=== PATIENT | male | born 1940 | race Caucasian/White ===

== ENCOUNTER 2016-06-18 21:59 | Inpatient (IN) | payer MEDICARE ==
[~2016-06-18] VITALS: Ht 172.7 cm; Wt 110.7 kg
[2016-06-18 22:25] VITALS: BP 116/53; PULSE 63; RESP 22; TEMP 98; O2SAT 99
[2016-06-18] MEDS ORDERED: IPRASOL INH (23:39)
[2016-06-18] MEDS ORDERED: NOVORP2 SQ (23:39)
[2016-06-18] MEDS ORDERED: FERR325T PO (23:39)
[2016-06-18] MEDS ORDERED: HYDR10TA23 PO (23:39)
[2016-06-18] MEDS ORDERED: BUME1TAB26 PO (23:39)
[2016-06-18] MEDS ORDERED: TAMS5CAP PO (23:39)
[2016-06-18] MEDS ORDERED: SPIR25 PO (23:39)
[2016-06-18] MEDS ORDERED: ASPI81CH CHEW (23:39)
[2016-06-18] MEDS ORDERED: ALLO100T PO (23:39)
[2016-06-18] MEDS ORDERED: MAGN500T2 PO (23:39)
[2016-06-18] MEDS ORDERED: ACET1CAP18 PO (23:39)
[2016-06-18] MEDS ORDERED: FLUT1INH INH (23:39)
[2016-06-18] MEDS ORDERED: GABA300C5 PO (23:39)
[2016-06-18] MEDS ORDERED: POTA10CA PO (23:39)
[2016-06-18] MEDS ORDERED: ATOR10TA15 PO (23:39)
[2016-06-18] MEDS ORDERED: BUME1TAB28 PO (23:39)
[2016-06-18] MEDS ORDERED: MULT1CHW70 (23:39)
[2016-06-18] MEDS ORDERED: MAALSUS18 PO (23:39)
[2016-06-18] MEDS ORDERED: ISOS30TA15 PO (23:39)
[2016-06-18] MEDS ORDERED: FISH1000 (23:39)
[2016-06-18] MEDS ORDERED: BENZ1CAP34 PO (23:39)
[2016-06-18] MEDS ORDERED: RENATAB5 PO (23:39)
[2016-06-18] MEDS ORDERED: MIRA33504 PO (23:39)
[2016-06-18] MEDS ORDERED: NOVOLOGMXP SQ (23:39)
[2016-06-18] MEDS ORDERED: TRAM50TA PO (23:39)
[2016-06-18] MEDS ORDERED: WARF-23 PO (23:39)
[2016-06-18] MEDS ORDERED: CYCL1TAB29 PO (23:39)
[2016-06-18] MEDS ORDERED: AMMO12LO TOPICAL (23:39)
[2016-06-18] MEDS ORDERED: CARV6.25 PO (23:39)
[2016-06-19] VITALS (16 sets, daily range): BP systolic 109–149; BP diastolic 51–71; PULSE 59–87; RESP 12–27; TEMP 97.4–98.6; O2SAT 98–100
[2016-06-19 00:29] LABS: AUTOMATED NEUTROPHIL # 4.5 TH/MM3 (1.8-7.7); BASOPHIL % 0.7 % (0.0-2.0); EOSINOPHIL # 0.1 TH/MM3 (0-0.4); EOSINOPHIL % 1.8 % (0.0-4.0); HEMO FLAGS DIFF FINAL; LYMPH % 13.3 % (9.0-44.0); LYMPHOCYTE # 0.8 TH/MM3 (1.0-4.8); MEAN CELL VOLUME 91.9 FL (80.0-100.0); MEAN CORPUSCULAR HEMOGLOBIN 29.2 PG (27.0-34.0); MEAN CORPUSCULAR HGB CONC 31.7 % (32.0-36.0); MONO % 11.2 % (0.0-8.0); PLATELET COUNT 156 TH/MM3 (150-450); RED BLOOD COUNT 3.04 MIL/MM3 (4.50-5.90); RED CELL DISTRIBUTION WIDTH 18.3 % (11.6-17.2); WHITE BLOOD COUNT 6.2 TH/MM3 (4.0-11.0)
--- NOTE | 2016-06-19 00:36 | RADRPT ---
EXAM DATE/TIME: 06/19/2016 00:07 [place] COMPARISON: No previous studies available for comparison. INDICATIONS : Pt having chest pain. Pt says has gained 60 pounds in past two weeks. MEDICAL HISTORY : Congestive heart failure. Diabetes mellitus type II. Gastroesophageal reflux disease. A-fib, Asth ma SURGICAL HISTORY : CABG. ENCOUNTER: Initial ACUITY: 1 day PAIN SCORE: 7/10 LOCATION: Bilateral chest FINDINGS: Cardiac pacer leads are in place. Evidence of prior median sternotomy. The heart is moderately enla rged. There is some indistinctness of the central bronchopulmonary markings. Both hemidiaphragms re main fairly well delineated. Multiple hemoclips in the right axilla. CONCLUSION: Cardiomegaly and indistinctness of the central bronchopulmonary markings. Rustam Hernández MD on June 19, 2016 at 0:33 Board Certified Radiologist. This report was verified electronically.
[2016-06-19 00:46] LABS: APTT (PATIENT) 40.9 SEC (24.3-30.1); INTERNATIONAL NORMALIZED RATIO 3.6 RATIO; PROTHROMBIN TIME - PATIENT 41.8 SEC (9.8-11.6)
[2016-06-19 01:24] LABS: BICARBONATE 33.9 MEQ/L (21.0-32.0)
[2016-06-19 01:34] LABS: POTASSIUM 5.6 MEQ/L (3.5-5.1)
[2016-06-19 03:03] LABS: APTT (PATIENT) 40.4 SEC (24.3-30.1); INTERNATIONAL NORMALIZED RATIO 3.5 RATIO; PROTHROMBIN TIME - PATIENT 41.3 SEC (9.8-11.6)
[2016-06-19 03:13] LABS: TOTAL BILIRUBIN ADULT 0.7 MG/DL (0.2-1.0)
[2016-06-19 03:15] LABS: INDIRECT BILIRUBIN 0.5 MG/DL (0.0-0.8)
--- NOTE | 2016-06-19 03:34 | PD ---
HPI Chief Complaint: Medical Clearance Time Seen by Provider: 01:52 Travel History International Travel<30 days: No Contact w/Intl Traveler<30days: No Traveled to known affect area: No History of Present Illness HPI This is a 75-year-old male The patient had an AICD placed several weeks ago at a hospital in [place]. He's gained about 70 pounds in the last few weeks since it 's placement. [place] was recently placed and he states that is painful. Any exertion tends to cause dyspnea. He's had no fever. He has no chest pain. History Social History Alcohol Use: No Tobacco Use: No Allergies-Medications (Allergen,Severity, Reaction): Coded Allergies: No Known Allergies (Unverified , 06/18/16) Reported Meds & Prescriptions Reported Meds & Active Scripts Active Reported Flomax (Tamsulosin HCl) 0.4 Mg Cap 0.4 Mg PO HS Tylenol (Acetaminophen) 325 Mg Cap 325 Mg PO Q6H PRN Warfarin 5 Mg Tab 5 Mg PO DAILY Tramadol (Tramadol HCl) 50 Mg Tab 50 Mg PO Q6H PRN Aldactone (Spironolactone) 25 Mg Tab 25 Mg PO DAILY Bumex (Bumetanide) 1 Mg Tab 1 Mg PO DAILY Bumex (Bumetanide) 2 Mg Tab 2 Mg PO DAILY Flexeril (Cyclobenzaprine HCl) 10 Mg Tab 10 Mg PO TID Gabapentin 300 Mg Cap 300 Mg PO BID Hydralazine (Hydralazine HCl) 10 Mg Tab 10 Mg PO BID Take with a meal Allopurinol 100 Mg Tab 100 Mg PO BID Novolin R Inj (Insulin Human Regular) 1,000 Unit/10 Ml Vial 0 SQ DIRECTED Sliding Scale As Directed. Benzonatate 200 Mg Cap 200 Mg PO TID PRN Duoneb (Ipratropium-Albuterol Neb) 0.5-2.5 Mg/3 Ml Neb 1 Nebule INH Q6HR NEB Coreg (Carvedilol) 6.25 Mg Tab 6.25 Mg PO BID Isosorbide Dinitrate 30 Mg Tab 40 Mg PO BID Novolog Mix 70-30 Inj (Insulin Aspart Prota 70%/Aspart 30%) 1,000 Unit/10 Ml Vial 25 Units SQ DAILYAC Marni-Mame (B-Complex W/ C & Folic Acid) 1 Tab 1 Tab PO DAILY Fish Oil ([place]-3 Fatty Acids) 1,000 Mg Cap Aspirin 81 Mg Chew 81 Mg CHEW DAILY Multivitamin Adult (Multiple Vitamins W/ Minerals) 1 Chw Chw Maalox Advanced Maximum Strength Liq (Unctkrvw-Sirdhaluq-Cmijbpqknqy Liq) 400- 400-40 Mg/5 Ml Susp 30 Ml PO Q6HR PRN Take between meals or as directed. Shake well. Maximum 60 ml/24 hrs. Miralax Powder (Polyethylene Glycol 3350 Powder) 17 Gm Powd 17 Gm PO HS Mix and dissolve one measuring cap-ful (17 grams) in water or juice. Magnesium Oxide 500 Mg Tab 500 Mg PO BID Ferrous Sulfate 325 Mg Tab 325 Mg PO DAILY Potassium Chloride ER (Potassium Chloride) 10 Meq Cap 10 Meq PO DAILY Atorvastatin (Atorvastatin Calcium) 10 Mg Tab 10 Mg PO HS Ammonium Lactate (Lactic Acid (Ammonium Lactate)) 12% Lotn 1 Applic TOPICAL ONCE Breo Ellipta Inh (Fluticasone/Vilanterol) 100-25 Mcg/Act Inh 1 Puff INH DAILY Use daily at the same time. Review of Systems Except as stated in HPI: all other systems reviewed are Neg Physical Exam Narrative GENERAL: 75 yo M, mild distress SKIN: Warm and dry. HEAD: Atraumatic. Normocephalic. EYES: Pupils equal and round. No scleral icterus. No injection or drainage. ENT: No nasal bleeding or discharge. Mucous membranes pink and moist. NECK: Trachea midline. No JVD. CARDIOVASCULAR: Regular rate and rhythm. RESPIRATORY: No accessory muscle use. Clear to auscultation. Breath sounds equal bilaterally. GASTROINTESTINAL: Abdomen soft, non-tender, nondistended. Hepatic and splenic margins not palpable. MUSCULOSKELETAL: 2+ pitting edema all four extremities. no gross deformities. NEUROLOGICAL: Awake and alert. No obvious cranial nerve deficits. Motor grossly within normal limits. Five out of 5 muscle strength in the arms and legs. Normal speech. PSYCHIATRIC: Appropriate mood and affect; insight and judgment normal. Data Data Last Documented VS Vital Signs Date Time Temp Pulse Resp B/P Pulse Ox O2 Delivery O2 Flow Rate FiO2 06/18/16 22:25 98.0 63 22 116/53 99 VS reviewed Orders Electrocardiogram (06/18/16 23:40) Complete Blood Count With Diff (06/18/16 23:40) Troponin I (06/18/16 23:40) Basic Metabolic Panel (Bmp) (06/18/16 23:40) Chest, Single Ap (06/18/16 23:40) Coag Profile (06/19/16 00:00) Urinalysis - C+S If Indicated (06/19/16 00:04) B-Type Natriuretic Peptide (06/19/16 02:09) Hepatic Functional Panel (06/19/16 02:09) Prothrombin Time / Inr (Pt) (06/19/16 02:22) Act Partial Throm Time (Ptt) (06/19/16 02:22) Calcium Gluconate Inj (Calcium Gluconate (06/19/16 03:45) Insulin Human Regular Inj (Novolin R Inj (06/19/16 03:45) Dextrose 50% In Nas (Vial) Inj (D50w (Vi (06/19/16 03:45) Sodium Bicarbonate 8.4% Inj (Sodium Bica (06/19/16 03:45) Admit Order (Ed Use Only) (06/19/16 03:50) Labs Laboratory Tests Test 06/19/16 06/19/16 00:02 02:35 White Blood Count 6.2 TH/MM3 Red Blood Count 3.04 MIL/MM3 Hemoglobin 8.9 GM/DL Hematocrit 28.0 % Mean Corpuscular Volume 91.9 FL Mean Corpuscular Hemoglobin 29.2 PG Mean Corpuscular Hemoglobin 31.7 % Concent Red Cell Distribution Width 18.3 % Platelet Count 156 TH/MM3 Mean Platelet Volume 8.9 FL Neutrophils (%) (Auto) 73.0 % Lymphocytes (%) (Auto) 13.3 % Monocytes (%) (Auto) 11.2 % Eosinophils (%) (Auto) 1.8 % Basophils (%) (Auto) 0.7 % Neutrophils # (Auto) 4.5 TH/MM3 Lymphocytes # (Auto) 0.8 TH/MM3 Monocytes # (Auto) 0.7 TH/MM3 Eosinophils # (Auto) 0.1 TH/MM3 Basophils # (Auto) 0.0 TH/MM3 CBC Comment DIFF FINAL Differential Comment Prothrombin Time 41.8 SEC 41.3 SEC Prothromb Time International 3.6 RATIO 3.5 RATIO Ratio Activated Partial 40.9 SEC 40.4 SEC Thromboplast Time Sodium Level 136 MEQ/L Potassium Level 5.6 MEQ/L Chloride Level 97 MEQ/L Carbon Dioxide Level 33.9 MEQ/L Anion Gap 5 MEQ/L Blood Urea Nitrogen 70 MG/DL Creatinine 1.97 MG/DL Estimat Glomerular Filtration 33 ML/MIN Rate Random Glucose 153 MG/DL Calcium Level 7.9 MG/DL Total Bilirubin 0.7 MG/DL Direct Bilirubin 0.2 MG/DL Indirect Bilirubin 0.5 MG/DL Aspartate Amino Transf 48 U/L (AST/SGOT) Alanine Aminotransferase 23 U/L (ALT/SGPT) Alkaline Phosphatase 174 U/L Troponin I 0.03 NG/ML B-Type Natriuretic Peptide 124 PG/ML Total Protein 6.7 GM/DL Albumin 2.8 GM/DL MDM Medical Decision Making Medical Screen Exam Complete: Yes Emergency Medical Condition: Yes Differential Diagnosis CBC & BMP Diagram 06/19/16 00:02 AST 48 BNP 124 Albumin 2.8 Tn I 0.03 EKG shows a paced rhythm Last 24 hours Impressions Chest X-Ray 06/18/16 2340 Signed Impressions: Service Date/Time: Sunday, June 19, 2016 00:07 - CONCLUSION: Cardiomegaly and indistinctness of the central bronchopulmonary markings. Rustam Hernández MD pt will be admitted for management of uremia with renal insufficiency. diffuse pitting edema noted. d/w Dr Castrejon. Narrative Course HyperK treated. No hyperK ekg change. Diagnosis Primary Impression: Hyperkalemia Additional Impressions: AICD (automatic cardioverter/defibrillator) present Renal insufficiency CHF (congestive heart failure) Admitting Information Admitting Physician Requests: Admit Rubens Gustafson MD Jun 19, 2016 03:34
[2016-06-19] MEDS ORDERED: CALCIUM GLUCONATE 10% 1 GM/10 ML VIAL SLOW IVP ONE (03:45)
[2016-06-19] MEDS ORDERED: DEXTROSE 50% IN WATER 50 ML VIAL(D50) IV PUSH ONE (03:45)
[2016-06-19] MEDS ORDERED: SODIUM BICARBONATE 8.4% SOLN 50 MEQ/50 ML VIAL SLOW IVP ONE (03:45)
[2016-06-19] MEDS ORDERED: INSULIN HUMAN REGULAR 1,000 UNITS/10 ML VIAL IV PUSH ONE (03:45)
[2016-06-19] MEDS ORDERED: ONDANSETRON HCL 4 MG/2 ML VIAL IVP PRN (04:15)
[2016-06-19] MEDS ORDERED: MORPHINE SULFATE 4 MG/ML INJ IV PRN (04:15)
[2016-06-19] MEDS ORDERED: SODIUM CHLORIDE 0.9% FLUSH 5 ML FLUSH FLUSH PRN (04:15)
[2016-06-19] MEDS ORDERED: BISACODYL 10 MG SUPP PR PRN (04:15)
[2016-06-19] MEDS ORDERED: ACETAMINOPHEN/HYDROcodone 325 MG/5 MG TAB PO PRN (04:15)
[2016-06-19] MEDS ORDERED: ACETAMINOPHEN 325 MG TAB PO PRN (04:15)
--- NOTE | 2016-06-19 05:02 | HHI.HP ---
[facility] Service [facility] Primary Care Physician No Primary Care Physician Admission Diagnosis Uremia, Anasarca, Renal Insufficiency Diagnoses: (1) CHF (congestive heart failure) Diagnosis: Principal (2) Hyperkalemia Diagnosis: Principal (3) Renal insufficiency Diagnosis: Principal (4) AICD (automatic cardioverter/defibrillator) present Diagnosis: Principal (5) A-fib Diagnosis: Principal Travel History International Travel<30 Days: No Contact w/Intl Traveler <30 Da: No Traveled to Known Affected Are: No History of Present Illness This is a 75 year old male with a PMH of HTN, CAD, CHF (unknown EF), Renal Insufficiency, A-fib on Coumadin and DM who was brought to the ER by EMS from [facility] for worsening edema. History provided by . Per , pt was recently admitted to [facility] and underwent AICD placement, following procedure pt developed renal insufficiency w/ creatinine 3.9. States seen by Lodging Facilities Manager at [place] and renal function improved w/ creatinine 2.6 at time of d/c to Rehab. While in Rehab, however, notes pt has gained approx 70 lbs w/ significant peripheral edema. No chest pain or SOB reported. On arrival, BP 116/53, HR 63, O2 sat 99% on RA, Afebrile. WBC 6.2. K+ 5.6. Creatinine 1.97, presumably chronic. BNP 124. Trop 0.03. CXR w/ cardiomegaly and indistinctness of the central bronchopulmonary markings. Review of Systems Other ROS: 14 point review of systems otherwise negative. Past Family Social History Past Medical History PMH: HTN, CAD, A-fib on Coumadin, CHF (unknown EF), Renal Insufficiency and DM Past Surgical History PAST SURGICAL HISTORY: AICD 2001, 2016, CABG Allergies: Coded Allergies: No Known Allergies (Unverified , 06/18/16) Family History PAST FAMILY HISTORY: Reviewed, positive for DM. Social History PAST SOCIAL HISTORY: Negative for alcohol, tobacco or drugs. Physical Exam Vital Signs Vital Signs Date Time Temp Pulse Resp B/P Pulse Ox O2 Delivery O2 Flow Rate FiO2 06/18/16 22:25 98.0 63 22 116/53 99 Physical Exam PE: GENERAL: Elderly, morbidly obese white male in no acute distress. Significant dyspnea with speech. at bedside. HEENT: PERRLA, EOMI. No scleral icterus or conjunctival pallor. No lid lag or facial droop. CARDIOVASCULAR: Regular rate and rhythm. No obvious murmurs to auscultation. No chest tenderness to palpation. RESPIRATORY: No obvious rhonchi or wheezing. Clear to auscultation. Breath sounds equal bilaterally, decreased at bases bilaterally. GASTROINTESTINAL: Abdomen soft, non-tender, nondistended. BS normal. MUSCULOSKELETAL: Extremities without clubbing, cyanosis. +2 pitting edema. No obvious deformities. NEUROLOGICAL: Awake, alert and oriented x4. No focal neurologic deficits. Moving both upper and lower extremities spontaneously. Laboratory Laboratory Tests Test 06/19/16 06/19/16 00:02 02:35 White Blood Count 6.2 Red Blood Count 3.04 Hemoglobin 8.9 Hematocrit 28.0 Mean Corpuscular Volume 91.9 Mean Corpuscular Hemoglobin 29.2 Mean Corpuscular Hemoglobin 31.7 Concent Red Cell Distribution Width 18.3 Platelet Count 156 Mean Platelet Volume 8.9 Neutrophils (%) (Auto) 73.0 Lymphocytes (%) (Auto) 13.3 Monocytes (%) (Auto) 11.2 Eosinophils (%) (Auto) 1.8 Basophils (%) (Auto) 0.7 Neutrophils # (Auto) 4.5 Lymphocytes # (Auto) 0.8 Monocytes # (Auto) 0.7 Eosinophils # (Auto) 0.1 Basophils # (Auto) 0.0 CBC Comment DIFF FINAL Differential Comment Prothrombin Time 41.8 41.3 Prothromb Time International 3.6 3.5 Ratio Activated Partial 40.9 40.4 Thromboplast Time Sodium Level 136 Potassium Level 5.6 Chloride Level 97 Carbon Dioxide Level 33.9 Anion Gap 5 Blood Urea Nitrogen 70 Creatinine 1.97 Estimat Glomerular Filtration 33 Rate Random Glucose 153 Calcium Level 7.9 Total Bilirubin 0.7 Direct Bilirubin 0.2 Indirect Bilirubin 0.5 Aspartate Amino Transf 48 (AST/SGOT) Alanine Aminotransferase 23 (ALT/SGPT) Alkaline Phosphatase 174 Troponin I 0.03 B-Type Natriuretic Peptide 124 Total Protein 6.7 Albumin 2.8 Result Diagram: 06/19/16 0002 06/19/16 0002 Assessment and Plan Problem List: (1) CHF (congestive heart failure) ICD Code: I50.9 Status: Acute (2) Hyperkalemia ICD Code: E87.5 Status: Acute (3) Renal insufficiency ICD Code: N28.9 Status: Acute (4) A-fib ICD Code: I48.91 Status: Acute (5) AICD (automatic cardioverter/defibrillator) present ICD Code: Z95.810 Status: Acute Assessment and Plan A/P: 1. CHF: EF unknown. Recent admit [facility] s/p AICD 05/17/16. BNP 124, CXR with cardiomegaly and indistinctness of central bronchopulmonary markings, images reviewed by me. On Bumex and Aldactone at home, will resume home medications, caution w/ renal function. Following w/ Dr. Colin as outpatient, will consult for further recommendations. 2. Hyperkalemia: K+ 5.6, s/p treatment in ER. Will repeat labs in am. 3. Renal Insufficiency: Chronic. Creatinine 1.97, per creatinine 3.9 during hospitalization in [place]. Upcoming appt w/ Dr. Burns 06/21/16. Consult Nephrology for further recommendations. 4. A-fib: Controlled. On Coumadin. INR 3.5. Hold Coumadin for INR >3 5. DVT Prophylaxis: On Coumadin 6. Social work for d/c planning as needed. 7. Case discussed w/ ER physician at length. Hyacinth Castrejon MD Jun 19, 2016 05:02
[2016-06-19] MEDS ORDERED: GLUCAGON 1 MG/ML VIAL OTHER PRN (05:15)
[2016-06-19] MEDS ORDERED: INSULIN ASPART SUPPLEMENTAL SCALE SQ SCH (07:00)
[2016-06-19 07:54] LABS: BLOOD GAS BASE EXCESS 9.9 mmol/L (-2-2); BLOOD GAS CARBOXYHEMOGLOBIN 2.9 % (0-4); BLOOD GAS HCO3 36 mmol/L (22-26); BLOOD GAS METHEMOGLOBIN 1.8 % (0-2); BLOOD GAS O2 HGB SATURATION 93 % (90-100); BLOOD GAS OXYGEN CONTENT 11.8 Vol % (12.0-20.0); BLOOD GAS PCO2 71 mmHg (38-42); BLOOD GAS PO2 91 mmHG (61-120); TEMP CORR TO 98.6
[2016-06-19 07:56] LABS: CRITICAL VALUE YES; DRAW SITE RT RADIAL; LITER FLOW 1 L/M; NUMBER OF ARTERIAL PUNCTURES 1; OXYGEN DEVICE NASAL CANNULA; STAT YES; ULNAR PULSE PRESENT
[2016-06-19] MEDS ORDERED: INSULIN ASPAR PROT 70/30 1,000 UNITS/10 ML VIAL SQ SCH (08:00)
[2016-06-19] MEDS: DEXTROSE 50% IN WATER 50 ML VIAL(D50) IV PUSH PRN ×2 (08:01→11:00)
[2016-06-19] MEDS: ASPIRIN 81 MG CHEW TAB CHEW SCH (08:57)
[2016-06-19] MEDS: FLUTICASONE 100 MCG/VILANTEROL 25 MCG INHALER INH SCH (08:57)
[2016-06-19] MEDS ORDERED: SPIRONOLACTONE 25 MG TAB PO SCH (09:00)
[2016-06-19] MEDS ORDERED: WARFARIN SOD 5 MG TAB PO SCH (09:00)
[2016-06-19] MEDS: SODIUM CHLORIDE 0.9% FLUSH 5 ML FLUSH FLUSH SCH ×2 (09:00→23:46)
[2016-06-19] MEDS ORDERED: BUMETANIDE INJ 1 MG/4 ML VIAL IV PUSH SCH (09:00)
[2016-06-19] MEDS ORDERED: CARVEDILOL 6.25 MG TAB PO SCH (09:00)
[2016-06-19] MEDS ORDERED: GABAPENTIN 300 MG CAP PO SCH (09:00)
[2016-06-19] MEDS ORDERED: BUMETANIDE 1 MG TAB PO SCH (09:00)
[2016-06-19] MEDS ORDERED: hydrALAZINE HCL 10 MG TAB PO SCH (09:00)
[2016-06-19] MEDS ORDERED: FERROUS SULFATE 325 MG (65 MG ELEMENTAL IRON) TAB PO SCH (09:00)
[2016-06-19] MEDS ORDERED: ALLOPURINOL 100 MG TAB PO SCH (09:00)
[2016-06-19] MEDS ORDERED: ISOSORBIDE DINITRATE 20 MG TAB PO SCH (09:00)
[2016-06-19] MEDS ORDERED: RESP: ALBUTEROL 0.63 MG/3 ML NEB (PRN) NEB (09:15)
[2016-06-19] MEDS: RESP: ALBUTEROL 2.5 MG/IPRATROPIUM 0.5 MG NEB (SCH) INH ×3 (09:25→21:32)
[2016-06-19 09:37] LABS: BLOOD GAS BASE EXCESS 9.4 mmol/L (-2-2); BLOOD GAS CARBOXYHEMOGLOBIN 2.8 % (0-4); BLOOD GAS HCO3 36 mmol/L (22-26); BLOOD GAS METHEMOGLOBIN 1.8 % (0-2); BLOOD GAS O2 HGB SATURATION 93 % (90-100); BLOOD GAS OXYGEN CONTENT 12.1 Vol % (12.0-20.0); BLOOD GAS PCO2 75 mmHg (38-42); BLOOD GAS PO2 99 mmHG (61-120); BLOOD GAS TOTAL HGB 9.2 G/DL (12.0-16.0); TEMP CORR TO 98.6
[2016-06-19 09:38] LABS: CRITICAL VALUE YES; DRAW SITE RT RADIAL; FIO2 28 %; NUMBER OF ARTERIAL PUNCTURES 1; OXYGEN DEVICE VENTILATOR; STAT NO; ULNAR PULSE PRESENT; VENT SETTINGS NPPV 12PS/5PEEP
--- NOTE | 2016-06-19 09:43 | HHI.PR ---
Subjective Remarks Follow-up encephalopathy. Patient developed abdominal status this morning. He is obtunded. ABG shows hypercarbia. Started on BiPAP with no improvement of mental status. Discussed with critical care medicine who will evaluate the patient. Also discussed with RN, automotive drivability technician and Objective Vitals Vital Signs Date Time Temp Pulse Resp B/P Pulse Ox O2 Delivery O2 Flow Rate FiO2 06/19/16 08:51 99 28 06/19/16 07:56 98.6 59 26 111/57 100 06/19/16 05:30 97.4 59 12 112/56 100 06/19/16 05:30 59 06/18/16 22:25 98.0 63 22 116/53 99 I/O 06/18/16 06/18/16 06/18/16 06/19/16 06/19/16 06/19/16 07:00 15:00 23:00 07:00 15:00 23:00 Output Total 550 ml Balance -550 ml Output Urine Total 550 ml Result Diagram: 06/19/16 0002 06/19/16 0002 Imaging Last Impressions Chest X-Ray 06/18/16 2340 Signed Impressions: Service Date/Time: Sunday, June 19, 2016 00:07 - CONCLUSION: Cardiomegaly and indistinctness of the central bronchopulmonary markings. Rustam Hernández MD Objective Remarks GENERAL: Elderly, morbidly obese white male on BiPAP HEENT: PERRLA, EOMI. No scleral icterus or conjunctival pallor. No lid lag or facial droop. CARDIOVASCULAR: Regular rate and rhythm. No obvious murmurs to auscultation. No chest tenderness to palpation. RESPIRATORY: No obvious rhonchi or wheezing. Clear to auscultation. Breath sounds equal bilaterally, decreased at bases bilaterally. GASTROINTESTINAL: Abdomen soft, non-tender, nondistended. BS normal. MUSCULOSKELETAL: Extremities without clubbing, cyanosis. +2 pitting edema. No obvious deformities. NEUROLOGICAL: Obtunded. Withdraws bilateral upper extremities from pain Procedures None A/P Problem List: (1) CHF (congestive heart failure) ICD Code: I50.9 Status: Acute (2) Hyperkalemia ICD Code: E87.5 Status: Acute (3) Renal insufficiency ICD Code: N28.9 Status: Acute (4) A-fib ICD Code: I48.91 Status: Acute (5) AICD (automatic cardioverter/defibrillator) present ICD Code: Z95.810 Status: Acute Assessment and Plan 1. Acute on chronic systolic HF: Recent admit [facility] s/p AICD 05/17/16. BNP 124, CXR with cardiomegaly and indistinctness of central bronchopulmonary markings, images reviewed by me. On Bumex and Aldactone at home, will resume home medications, caution w/ renal function. Following w/ Dr. Colin as outpatient, will consult for further recommendations. Switch to IV Bumex and monitor response 2. Encephalopathy secondary to acute hypercarbic respiratory failure from heart failure exacerbation. No improvement in mental status despite on BiPAP. Consult critical care medicine for possible intubation. Obtain head CT in light of coagulopathy . Repeat CBC, BMP, CK, troponin and INR 3. Renal Insufficiency: Chronic. Creatinine 1.97, per creatinine 3.9 during hospitalization in [place]. Upcoming appt w/ Dr. Burns 06/21/16. Consult Nephrology for further recommendations. Hyperkalemia: K+ 5.6, s/p treatment in ER. Will repeat labs today 4. A-fib: Controlled. On Coumadin. INR 3.5. Hold Coumadin for INR >3 5. Diabetes mellitus. Monitor will fingersticks with sliding scale coverage DVT Prophylaxis: On Coumadin Discharge Planning Patient is critically ill we'll transfer patient to ICU for close monitoring. High likelihood of intubation and mechanical ventilation. He is a full code according to his . Critical care time spent 35 minutes Derrick Moise MD Jun 19, 2016 09:43 Potassium Level 5.6 Chloride Level 97 Carbon Dioxide Level 33.9 Anion Gap 5 Blood Urea Nitrogen 70 Creatinine 1.97 Estimat Glomerular Filtration 33 Rate Random Glucose 153 Calcium Level 7.9 Total Bilirubin 0.7 Direct Bilirubin 0.2 Indirect Bilirubin 0.5 Aspartate Amino Transf 48 (AST/SGOT) Alanine Aminotransferase 23 (ALT/SGPT) Alkaline Phosphatase 174 Troponin I 0.03 B-Type Natriuretic Peptide 124 Total Protein 6.7 Albumin 2.8 Result Diagram: 06/19/16 0002 06/19/16 0002 Septic Shock Reassessment Septic Shock Reassessment Assessment and Plan Assessment and Plan Problem List: (1) CHF (congestive heart failure) ICD Code: I50.9 Status: Acute (2) Hyperkalemia ICD Code: E87.5 Status: Acute (3) Renal insufficiency ICD Code: N28.9 Status: Acute (4) A-fib ICD Code: I48.91 Status: Acute (5) AICD (automatic cardioverter/defibrillator) present ICD Code: Z95.810 Status: Acute Assessment and Plan A/P: 1. CHF: EF unknown. Recent admit [facility] s/p AICD 05/17/16. BNP 124, CXR with cardiomegaly and indistinctness of central bronchopulmonary markings, images reviewed by me. On Bumex and Aldactone at home, will resume home medications, caution w/ renal function. Following w/ Dr. Colin as outpatient, will consult for further recommendations. 2. Hyperkalemia: K+ 5.6, s/p treatment in ER. Will repeat labs in am. 3. Renal Insufficiency: Chronic. Creatinine 1.97, per creatinine 3.9 during hospitalization in [place]. Upcoming appt w/ Dr. Burns 06/21/16. Consult Nephrology for further recommendations. 4. A-fib: Controlled. On Coumadin. INR 3.5. Hold Coumadin for INR >3 5. DVT Prophylaxis: On Coumadin 6. Social work for d/c planning as needed. 7. Case discussed w/ ER physician at length. A/P Problem List: (1) CHF (congestive heart failure) ICD Code: I50.9 Status: Acute (2) Hyperkalemia ICD Code: E87.5 Status: Acute (3) Renal insufficiency ICD Code: N28.9 Status: Acute (4) A-fib ICD Code: I48.91 Status: Acute (5) AICD (automatic cardioverter/defibrillator) present ICD Code: Z95.810 Status: Acute Derrick Moise MD Jun 19, 2016 09:43
[2016-06-19 10:53] LABS: AUTOMATED NEUTROPHIL # 6.1 TH/MM3 (1.8-7.7); BASOPHIL % 0.4 % (0.0-2.0); EOSINOPHIL # 0.1 TH/MM3 (0-0.4); EOSINOPHIL % 0.8 % (0.0-4.0); HEMATOCRIT 29.2 % (39.0-51.0); HEMO FLAGS DIFF FINAL; LYMPH % 10.2 % (9.0-44.0); LYMPHOCYTE # 0.8 TH/MM3 (1.0-4.8); MEAN CELL VOLUME 90.7 FL (80.0-100.0); MEAN CORPUSCULAR HEMOGLOBIN 29.1 PG (27.0-34.0); MEAN CORPUSCULAR HGB CONC 32.1 % (32.0-36.0); MONO % 8.3 % (0.0-8.0); NEUT % 80.3 % (16.0-70.0); PLATELET COUNT 147 TH/MM3 (150-450); RED BLOOD COUNT 3.22 MIL/MM3 (4.50-5.90); RED CELL DISTRIBUTION WIDTH 17.9 % (11.6-17.2); WHITE BLOOD COUNT 7.6 TH/MM3 (4.0-11.0)
[2016-06-19 11:00] LABS: INTERNATIONAL NORMALIZED RATIO 3.1 RATIO; PROTHROMBIN TIME - PATIENT 35.9 SEC (9.8-11.6)
[2016-06-19] MEDS: INSULIN ASPART SUPPLEMENTAL SCALE SQ SCH ×3 (11:00→21:00)
[2016-06-19 11:23] LABS: BICARBONATE 35.7 MEQ/L (21.0-32.0); POTASSIUM 4.6 MEQ/L (3.5-5.1)
--- NOTE | 2016-06-19 11:27 | PD.CONS ---
[facility] Service Critical Care Medicine Consult Requested By Dr. Moise Reason for Consult hypercarbic respiratory failure Primary Care Physician No Primary Care Physician History of Present Illness This is a 75yM with a history of NYHA class III/IV heart failure, poorly controlled diabetes, obstructive sleep apnea who recently had an AICD placed at an outside facility. At that time, per his family, his "kidneys shut down" and he was hospitalized while they recovered. they reportedly started to recover and he was sent to a rehab center. His states that his kidney number was around 2.5 when he left at the end of may, presumably his serum creatinine. Since that time, his family states that despite diuretic therapy, he has gained 70 lbs. He has become so edematous that his arms and legs have seeping open sores. He has had a significant functional decline, and over the last few days has been progressively somnolent. Today he is brought in for for altered mental status. He was admitted initially to the hospitalist team with a CHF exacerbation, and placed on BiPAP for hypercarbic respiratory failure, and when it did not improve, Critical Care medicine was consulted. I had a long discussion with the family. Per them, his heart is restricted in its function, and maybe 30% (EF?). His diabetes was poorly controlled, and he was no longer wearing his CPAP machine for ROSE MARIE. He could barely walk 50 ft without significant dyspnea, and he was starting to have difficulty talking on the phone without getting dyspneic. Today, his laboratory data is significant for a Cr 1.9, a BNP of 124, trop 0.03 , AST/ALT 48/23, Alk phos 174, INR 3.1 on coumadin. Review of Systems ROS Limitations: Clinical Condition, Altered Mental Status Past Family Social History Allergies: Coded Allergies: No Known Allergies (Unverified , 06/18/16) Past Medical History HTN CAD A-fib on Coumadin CHF (unknown EF) Renal Insufficiency DM Past Surgical History AICD 2001, 2015 CABG Active Ordered Medications See MAR Family History reviewed and found to be noncontributory to his acute illness. Social History Negative for alcohol, tobacco or drugs. Physical Exam Vital Signs Vital Signs Date Time Temp Pulse Resp B/P Pulse Ox O2 Delivery O2 Flow Rate FiO2 06/19/16 10:39 61 14 149/70 100 CPAP 06/19/16 08:51 99 28 06/19/16 07:56 98.6 59 26 111/57 100 06/19/16 05:30 97.4 59 12 112/56 100 06/19/16 05:30 59 06/18/16 22:25 98.0 63 22 116/53 99 Physical Exam gen: morbidly obese male, lying in bed, somnolent, arousable to sternal rub, in moderate respiratory distress. heent: ncat. pupils equal and reactive. mucous membranes moist. neck: trachea midline. BiPAP mask in place. jvd unable to assess due to body habitus. chest: diminished bilaterally. equal air entry. no wheezes cv: normal rate, regular rhythm. appears sinus on the monitor. muffled heart sounds. no appreciable murmurs abd: obese, soft, nontender, nondistended. no guarding. extr: grossly anasarcic including all 4 extremities. small areas of bullae with clear fluid seeping. distal pulses 1+. neuro: RASS -3, but does arouse to deep sternal rub, and followed commands for me in all 4 extremities with some prompting. Laboratory Laboratory Tests Test 06/19/16 06/19/16 06/19/16 06/19/16 00:02 02:35 07:50 09:31 White Blood Count 6.2 Red Blood Count 3.04 Hemoglobin 8.9 Hematocrit 28.0 Mean Corpuscular Volume 91.9 Mean Corpuscular Hemoglobin 29.2 Mean Corpuscular Hemoglobin 31.7 Concent Red Cell Distribution Width 18.3 Platelet Count 156 Mean Platelet Volume 8.9 Neutrophils (%) (Auto) 73.0 Lymphocytes (%) (Auto) 13.3 Monocytes (%) (Auto) 11.2 Eosinophils (%) (Auto) 1.8 Basophils (%) (Auto) 0.7 Neutrophils # (Auto) 4.5 Lymphocytes # (Auto) 0.8 Monocytes # (Auto) 0.7 Eosinophils # (Auto) 0.1 Basophils # (Auto) 0.0 CBC Comment DIFF FINAL Differential Comment Prothrombin Time 41.8 41.3 Prothromb Time International 3.6 3.5 Ratio Activated Partial 40.9 40.4 Thromboplast Time Sodium Level 136 Potassium Level 5.6 Chloride Level 97 Carbon Dioxide Level 33.9 Anion Gap 5 Blood Urea Nitrogen 70 Creatinine 1.97 Estimat Glomerular Filtration 33 Rate Random Glucose 153 Calcium Level 7.9 Total Bilirubin 0.7 Direct Bilirubin 0.2 Indirect Bilirubin 0.5 Aspartate Amino Transf 48 (AST/SGOT) Alanine Aminotransferase 23 (ALT/SGPT) Alkaline Phosphatase 174 Troponin I 0.03 B-Type Natriuretic Peptide 124 Total Protein 6.7 Albumin 2.8 Blood Gas Puncture Site RT RADIAL RT RADIAL Blood Gas Patient Temperature 98.6 98.6 Blood Gas HCO3 36 36 Blood Gas Base Excess 9.9 9.4 Blood Gas Oxygen Saturation 93 93 Arterial Blood pH 7.33 7.30 Arterial Blood Partial 71 75 Pressure CO2 Arterial Blood Partial 91 99 Pressure O2 Arterial Blood Oxygen Content 11.8 12.1 Arterial Blood 2.9 2.8 Carboxyhemoglobin Arterial Blood Methemoglobin 1.8 1.8 Blood Gas Hemoglobin 9.0 9.2 Oxygen Delivery Device NASAL CANNULA VENTILATOR Blood Gas Liter Flow 1 Blood Gas Ventilator Setting NPPV 12PS/5PEEP Blood Gas Inspired Oxygen 28 Test 06/19/16 10:42 White Blood Count 7.6 Red Blood Count 3.22 Hemoglobin 9.4 Hematocrit 29.2 Mean Corpuscular Volume 90.7 Mean Corpuscular Hemoglobin 29.1 Mean Corpuscular Hemoglobin 32.1 Concent Red Cell Distribution Width 17.9 Platelet Count 147 Mean Platelet Volume 8.0 Neutrophils (%) (Auto) 80.3 Lymphocytes (%) (Auto) 10.2 Monocytes (%) (Auto) 8.3 Eosinophils (%) (Auto) 0.8 Basophils (%) (Auto) 0.4 Neutrophils # (Auto) 6.1 Lymphocytes # (Auto) 0.8 Monocytes # (Auto) 0.6 Eosinophils # (Auto) 0.1 Basophils # (Auto) 0.0 CBC Comment DIFF FINAL Differential Comment Prothrombin Time 35.9 Prothromb Time International 3.1 Ratio Result Diagram: 06/19/16 1042 06/19/16 0002 Assessment and Plan Assessment and Plan Assessment: This is a 75yM with history of cardiomyopathy, unknown type, and NYHA class III/IV symptoms who presents with a few weeks of weight gain and significant functional decline and now is found to have significant encephalopathy, hypercarbic respiratory failure, and gross volume overload. From a decompensated heart failure standpoint, he is clearly in extremis. a 70 lb weight gain over 1-2 weeks is extreme, and my evaluation of the patient would agree with this extreme volume overload. Even though his Cr is reportedly downtrending from what it was per the family, his urine is very dark , and his GFR is still significantly depressed. I think his elevated LFTs are suggestive of mild congestive hepatopathy and liver dysfunction. I think his encephalopathy is due to a combination of possible hepatic dysfunction and his severe hypercarbia and co2 narcosis. From a heart standpoint, I performed critical care bedside ultrasound which demonstrated moderately depressed LV systolic function, mildly depressed RV function, dilated RV, dilated IVC at 2.7cm without respiratory variation. no pericardial effusion. I am concerned that he may have a large diastolic component to his heart failure based on his clinical scenario. I also am very concerned that his multi-organ system dysfunction, which is has been going on for the past few days to weeks at this point, is going to significantly limit his ability to clinically improve. I had a long discussion with his entire family, including his and medical decision maker and a few of his children. We talked about the fact that this degree of organ failure makes him very critically ill. We also talked about how he meets criteria for intubation and mechanical ventilation as the next aggressive step in management. We talked about how intubation was high risk given his cardiac function, and with all his other organ dysfunction, there was a significant risk that he would not separate from mechanical ventilation. His felt very strongly that in their conversations, he would not have wanted a breathing tube for anything other than a "quick fix." I explained that this degree of volume overload would take at minimum a number of days to correct and may even require renal replacement therapy given his recent severe CELY. She expressed that he would not want a breathing tube, and would not want the stress of that. She understands that without the breathing tube, there is a good chance he might , and if that happens, she wants him comfortable. Thus, in congruence with his wishes as expressed by his , we will make the patient DNR/DNI. We will work aggressively towards improving his current clinical condition with the understanding that if we deteriorate clinically, we will transition to comfort measures. Plan by systems: Neurologic: Metabolic encephalopathy Likely secondary to hepatic dysfunction and CO2 narcosis Every hour neurochecks Avoid sedating medications Respiratory: Acute hypercarbic respiratory failure Acute respiratory failure exacerbation, unknown type. Suspected mixed systolic and diastolic. Continue BiPAP The patient is DNI. We will not pursue intubation We will give the patient a few more hours and then recheck blood gas Wean FiO2 for goal SPO2 greater than 90% Cardiovascular: Acute respiratory failure exacerbation, unknown type. Suspected mixed systolic and diastolic. Continue telemetry Renal: Acute kidney injury Continue Mendiola catheter -- Strict I/Os FEN/GI: Severe acute intravascular volume overload Congestive hepatopathy Bumex 4 mg IV 1 Bumex drip at 2 mg an hour Diuril 500 mg IV 1 Goal net -4 L by the morning If he does not diuresis as expected, we may need to change her goals comfort measures as I'm not sure his degree of heart failure at the moment the salvageable. Recheck BMP in the afternoon Nothing by mouth while on BiPAP A.m. LFTs AM BMP We will not give lactulose given the fact that the patient is too altered to control his airway, and I do not want vomiting and aspiration to worsen his condition. Check ammonia We will hold all of his by mouth meds in the setting of his significant altered mental status Heme/ID: Supratherapeutic INR Coagulopathy Likely secondary to renal dysfunction and hepatic dysfunction Daily CBC Daily coags holding Coumadin, will restart if INR is less than 1.7 Endocrine: Hyperglycemia of critical illness Diabetes -- SSI, medium scale, every 6 hours Prophylaxis: GI Prophylaxis Protonix 40 mg IV daily 24 hours DVT Prophylaxis -- SCDs Supratherapeutic INR. Holding pharmacologic DVT prophylaxis. Lines: Peripheral IVs Dispo: Admit to the ICU. His clinical condition is very guarded at this time. I expressed my concerns the family. He may not survive this hospital stay. This patient remains critically ill with one or more organ systems which are or may become a threat to life. I have spent in excess of 78 minutes discontinuously in the care and management of this patient. This time is exclusive of procedures, and includes, but is not limited to, evaluation of the patient, review of the medical record, discussions with family, consultants, nursing staff, or respiratory therapy, and documentation in the medical record. Code Status DNR/DNI Louis Newby MD Jun 19, 2016 11:27
[2016-06-19] MEDS ORDERED: CHLORHEXIDINE GLUCONATE 2 % 1 PACK (2 CLOTHS) TOP PRN (11:45)
[2016-06-19] MEDS ORDERED: MISCELLANEOUS NURSING INFORMATION XX SCH (11:45)
[2016-06-19] MEDS ORDERED: ONDANSETRON HCL 4 MG/2 ML VIAL IV PRN (11:45)
[2016-06-19] MEDS ORDERED: SODIUM CHLORIDE 0.9% FLUSH 5 ML FLUSH IV FLUSH PRN (11:45)
[2016-06-19] MEDS ORDERED: BUMETANIDE INJ 1 MG/4 ML VIAL IV PUSH ONE (12:15)
[2016-06-19] MEDS ORDERED: CHLOROTHIAZIDE SOD 500 MG VIAL IV ONE ×2 (12:30→18:15)
[2016-06-19] MEDS: BUMETANIDE INJ 100 ML IV SCH ×2 (12:41→20:10)
--- NOTE | 2016-06-19 14:12 | PD.CONS ---
[facility] Service Nephrology Consult Requested By Dr. Castrejon Reason for Consult Acute on Chronic renal insufficiency. Fluid overload Primary Care Physician No Primary Care Physician History of Present Illness The patient is a 75 yo [place] male who was brought into the ED today with SOB, fluid overload from [facility]. and 2 children are present in the exam room and history is obtained from his family as the patient is currently obtunded. He apparently was recently in [facility] (May 2016) for cardiac issues and had an exchange of his cardiac pacer to include 2 leads versus just one which he had since 2001. After the procedure, his says that he had kidney troubles and his "numbers went to 3.7". She refers that he was "placed on a drip and his number improved to 2.6". He was discharged from that facility and has been at [facility] for the past 2 weeks. Since his discharge from [facility], he has had progressive edema and reported a 70 lb weight gain in the past 2 weeks. He does take outpatient diuretics, but the dose is uncertain. He came in with a Mendiola placed and as per was making urine, but was very dark. Since admission, he was given loading dose of Bumex and started on Bumex 2mg/hr drip. He was also given a dose of Diuril. UOP has improved. The patient is in respiratory distress and the patient's has opted against intubation as she feels that ultimately, the patient would not want this. Admitting SCr 1.97 that improved slightly to 1.85 at consult. Admitting K+ 5.6 that improved to 4.6 as consult Alb at 2.8. (Karin Juarez) Review of Systems ROS Limitations: Clinical Condition Constitutional: COMPLAINS OF: Weight gain (ROS ontained from family members) Respiratory: COMPLAINS OF: Shortness of breath Cardiovascular: COMPLAINS OF: Dyspnea on Exertion, Lower Extremity Edema ( Karin Juarez) Past Family Social History Allergies: Coded Allergies: No Known Allergies (Unverified , 06/18/16) Past Medical History CAD CHF s/p AICD placement originally in 2001 that was revised in May 2016 at [facility] HTN DM CKD as reported by his only since May 2016 A. fib Past Surgical History AICD x2 CAGB Reported Medications Reported Meds & Active Scripts Active Reported Flomax (Tamsulosin HCl) 0.4 Mg Cap 0.4 Mg PO HS Tylenol (Acetaminophen) 325 Mg Cap 325 Mg PO Q6H PRN Warfarin 5 Mg Tab 5 Mg PO DAILY Tramadol (Tramadol HCl) 50 Mg Tab 50 Mg PO Q6H PRN Aldactone (Spironolactone) 25 Mg Tab 25 Mg PO DAILY Bumex (Bumetanide) 1 Mg Tab 1 Mg PO DAILY Bumex (Bumetanide) 2 Mg Tab 2 Mg PO DAILY Flexeril (Cyclobenzaprine HCl) 10 Mg Tab 10 Mg PO TID Gabapentin 300 Mg Cap 300 Mg PO BID Hydralazine (Hydralazine HCl) 10 Mg Tab 10 Mg PO BID Take with a meal Allopurinol 100 Mg Tab 100 Mg PO BID Novolin R Inj (Insulin Human Regular) 1,000 Unit/10 Ml Vial 0 SQ DIRECTED Sliding Scale As Directed. Benzonatate 200 Mg Cap 200 Mg PO TID PRN Duoneb (Ipratropium-Albuterol Neb) 0.5-2.5 Mg/3 Ml Neb 1 Nebule INH Q6HR NEB Coreg (Carvedilol) 6.25 Mg Tab 6.25 Mg PO BID Isosorbide Dinitrate 30 Mg Tab 40 Mg PO BID Novolog Mix 70-30 Inj (Insulin Aspart Prota 70%/Aspart 30%) 1,000 Unit/10 Ml Vial 25 Units SQ DAILYAC Marni-Mame (B-Complex W/ C & Folic Acid) 1 Tab 1 Tab PO DAILY Fish Oil ([place]-3 Fatty Acids) 1,000 Mg Cap Aspirin 81 Mg Chew 81 Mg CHEW DAILY Multivitamin Adult (Multiple Vitamins W/ Minerals) 1 Chw Chw Maalox Advanced Maximum Strength Liq (Ujdndgog-Mtkcsgsir-Cgsteotlpss Liq) 400- 400-40 Mg/5 Ml Susp 30 Ml PO Q6HR PRN Take between meals or as directed. Shake well. Maximum 60 ml/24 hrs. Miralax Powder (Polyethylene Glycol 3350 Powder) 17 Gm Powd 17 Gm PO HS Mix and dissolve one measuring cap-ful (17 grams) in water or juice. Magnesium Oxide 500 Mg Tab 500 Mg PO BID Ferrous Sulfate 325 Mg Tab 325 Mg PO DAILY Potassium Chloride ER (Potassium Chloride) 10 Meq Cap 10 Meq PO DAILY Atorvastatin (Atorvastatin Calcium) 10 Mg Tab 10 Mg PO HS Ammonium Lactate (Lactic Acid (Ammonium Lactate)) 12% Lotn 1 Applic TOPICAL ONCE Breo Ellipta Inh (Fluticasone/Vilanterol) 100-25 Mcg/Act Inh 1 Puff INH DAILY Use daily at the same time. Active Ordered Medications Current Medications Medications (Trade) Dose Ordered Sig/Les Route Start Time Stop Time Status Last Admin (NS Flush) 2 ml UNSCH PRN FLUSH 06/19/16 04:15 (NS Flush) 2 ml BID FLUSH 06/19/16 09:00 (Zofran Inj) 4 mg Q6H PRN IVP 06/19/16 04:15 (Tylenol) 650 mg Q6H PRN PO 06/19/16 04:15 Hold ([place] 5-325 Mg) 1 tab Q4H PRN PO 06/19/16 04:15 Hold (Zyloprim) 100 mg BID PO 06/19/16 09:00 Hold (Aspirin Chew) 81 mg DAILY CHEW 06/19/16 09:00 (Lipitor) 10 mg HS PO 06/19/16 21:00 (Coreg) 6.25 mg BID PO 06/19/16 09:00 Hold (Ferrous Sulfate) 325 mg DAILY PO 06/19/16 09:00 Hold (Breo Ellipta 100-25 Inh) 1 puff DAILY INH 06/19/16 09:00 (Apresoline) 10 mg BID PO 06/19/16 09:00 Hold (Aldactone) 25 mg DAILY PO 06/19/16 09:00 Hold (Flomax) 0.4 mg HS PO 06/19/16 21:00 (D50w (Vial) Inj) 25 ml UNSCH PRN IV PUSH 06/19/16 05:15 06/19/16 11:00 Glucagon 1 mg 1 mg UNSCH PRN OTHER 06/19/16 05:15 (Bumex Inj) 100 ml @ 8 mls/hr CONTINUOUS IV 06/19/16 13:00 06/19/16 12:41 (Protonix Inj) 40 mg DAILY IV 06/20/16 09:00 Miscellaneous Information 1 Q361D XX 06/19/16 11:45 (Chlorhexidine 2% Cloth) 3 pack Taper DAILY@04 TOP 06/20/16 04:00 06/16/17 03:59 (Chlorhexidine 2% Cloth) 3 pack UNSCH PRN TOP 06/19/16 11:45 Family History Family hx of DM. No known renal disease in family Social History Has been living at Rehab x2 weeks Is Denies smoking, EtOH, illicit drug use (Karin Juarez) Physical Exam Vital Signs Vital Signs Date Time Temp Pulse Resp B/P Pulse Ox O2 Delivery O2 Flow Rate FiO2 06/19/16 13:09 100 60 06/19/16 12:00 64 18 118/59 100 BiPAP 06/19/16 10:39 61 14 149/70 100 CPAP 06/19/16 08:51 99 28 06/19/16 07:56 98.6 59 26 111/57 100 06/19/16 05:30 97.4 59 12 112/56 100 06/19/16 05:30 59 06/18/16 22:25 98.0 63 22 116/53 99 Physical Exam GENERAL: On BiPAP, in moderate respiratory distress SKIN: Warm and dry. HEAD: Atraumatic. Normocephalic. Facial edema EYES: Pupils equal and round. No scleral icterus. No injection or drainage. ENT: No nasal bleeding or discharge. Mucous membranes pink and moist. NECK: Trachea midline. No JVD. CARDIOVASCULAR: Regular rate and rhythm. RESPIRATORY: Respiratory distress on BiPAP. Lungs are diminished throughout. No rales appreciated GASTROINTESTINAL: Abdomen distended with a considerable amount of edema present MUSCULOSKELETAL: Extremities without clubbing, cyanosis. Generalized anasarca NEUROLOGICAL: Obtunded PSYCHIATRIC: Obtunded. On BiPAP. Not able to communicate Laboratory Laboratory Tests Test 06/19/16 06/19/16 06/19/16 06/19/16 00:02 02:35 07:50 09:31 White Blood Count 6.2 Red Blood Count 3.04 Hemoglobin 8.9 Hematocrit 28.0 Mean Corpuscular Volume 91.9 Mean Corpuscular Hemoglobin 29.2 Mean Corpuscular Hemoglobin 31.7 Concent Red Cell Distribution Width 18.3 Platelet Count 156 Mean Platelet Volume 8.9 Neutrophils (%) (Auto) 73.0 Lymphocytes (%) (Auto) 13.3 Monocytes (%) (Auto) 11.2 Eosinophils (%) (Auto) 1.8 Basophils (%) (Auto) 0.7 Neutrophils # (Auto) 4.5 Lymphocytes # (Auto) 0.8 Monocytes # (Auto) 0.7 Eosinophils # (Auto) 0.1 Basophils # (Auto) 0.0 CBC Comment DIFF FINAL Differential Comment Prothrombin Time 41.8 41.3 Prothromb Time International 3.6 3.5 Ratio Activated Partial 40.9 40.4 Thromboplast Time Sodium Level 136 Potassium Level 5.6 Chloride Level 97 Carbon Dioxide Level 33.9 Anion Gap 5 Blood Urea Nitrogen 70 Creatinine 1.97 Estimat Glomerular Filtration 33 Rate Random Glucose 153 Calcium Level 7.9 Total Bilirubin 0.7 Direct Bilirubin 0.2 Indirect Bilirubin 0.5 Aspartate Amino Transf 48 (AST/SGOT) Alanine Aminotransferase 23 (ALT/SGPT) Alkaline Phosphatase 174 Troponin I 0.03 B-Type Natriuretic Peptide 124 Total Protein 6.7 Albumin 2.8 Blood Gas Puncture Site RT RADIAL RT RADIAL Blood Gas Patient Temperature 98.6 98.6 Blood Gas HCO3 36 36 Blood Gas Base Excess 9.9 9.4 Blood Gas Oxygen Saturation 93 93 Arterial Blood pH 7.33 7.30 Arterial Blood Partial 71 75 Pressure CO2 Arterial Blood Partial 91 99 Pressure O2 Arterial Blood Oxygen Content 11.8 12.1 Arterial Blood 2.9 2.8 Carboxyhemoglobin Arterial Blood Methemoglobin 1.8 1.8 Blood Gas Hemoglobin 9.0 9.2 Oxygen Delivery Device NASAL CANNULA VENTILATOR Blood Gas Liter Flow 1 Blood Gas Ventilator Setting NPPV 12PS/5PEEP Blood Gas Inspired Oxygen 28 Test 06/19/16 10:42 White Blood Count 7.6 Red Blood Count 3.22 Hemoglobin 9.4 Hematocrit 29.2 Mean Corpuscular Volume 90.7 Mean Corpuscular Hemoglobin 29.1 Mean Corpuscular Hemoglobin 32.1 Concent Red Cell Distribution Width 17.9 Platelet Count 147 Mean Platelet Volume 8.0 Neutrophils (%) (Auto) 80.3 Lymphocytes (%) (Auto) 10.2 Monocytes (%) (Auto) 8.3 Eosinophils (%) (Auto) 0.8 Basophils (%) (Auto) 0.4 Neutrophils # (Auto) 6.1 Lymphocytes # (Auto) 0.8 Monocytes # (Auto) 0.6 Eosinophils # (Auto) 0.1 Basophils # (Auto) 0.0 CBC Comment DIFF FINAL Differential Comment Prothrombin Time 35.9 Prothromb Time International 3.1 Ratio Sodium Level 140 Potassium Level 4.6 Chloride Level 100 Carbon Dioxide Level 35.7 Anion Gap 4 Blood Urea Nitrogen 72 Creatinine 1.85 Estimat Glomerular Filtration 36 Rate Random Glucose 58 Calcium Level 8.6 Magnesium Level 3.0 Total Creatine Kinase 82 Troponin I 0.03 (Karin Juarez) Result Diagram: 06/19/16 1042 06/19/16 1042 Imaging Last Impressions Chest X-Ray 06/18/16 2340 Signed Impressions: Service Date/Time: Sunday, June 19, 2016 00:07 - CONCLUSION: Cardiomegaly and indistinctness of the central bronchopulmonary markings. Rustam Hernández MD (Karin Juarez) Assessment and Plan Problem List: (1) Renal insufficiency Plan: The patient's baseline renal functions are not known. According to ' s recollection, his SCr has improved from what he was in [place]. Records are pending. He was supposed to have establishment visit with Dr. Burns as outpatient coming up this month. Acute renal decline could be related to cardiac decompensation. Uncertain as to his EF as echo pending, but he is massively fluid overloaded. Agree with aggressive diuresis. He does seem to be responding as urine output has picked up. Will repeat renal functions for the AM. Check UA and renal US Will also check SPEP, RAYSHAWN, and K/L ratio for sake of being thorough. His Hgb is low, but this is likely dilutional more-so that true anemia. (2) CHF (congestive heart failure) Plan: Pending Echo report. Diurese as ordered (3) Diabetes mellitus Plan: Mgmt as per primary (4) Hypertension Plan: Stable. Monitor (5) CAD (coronary artery disease) Plan: Mgmt as per cardiology (Karin Juarez) Assessment and Plan The exam, history, and the medical decision-making described in the above note were completed with the assistance of the PA-Tabitha. I reviewed and agree with the findings presented. I attest that I had a [id number] encounter with the patient on the same day, and personally performed and documented my assessment and findings in the medical record. (Evangelista Aguirre MD) Karin Juarez Jun 19, 2016 14:12 Evangelista gAuirre MD Jun 19, 2016 17:02
--- NOTE | 2016-06-19 14:37 | EKG ---
Date Performed: 06/19/2016 Time Performed: 00:46:19 PTAGE: 75 years EKG: ELECTRONIC VENTRICULAR PACEMAKER ABNORMAL RHYTHM ECG NO PREVIOUS TRACING DOCTOR: Rohit Gustafson Interpretating Date/Time 06/19/2016 14:35:08
[2016-06-19 15:42] LABS: BLOOD GAS BASE EXCESS 9.6 mmol/L (-2-2); BLOOD GAS CARBOXYHEMOGLOBIN 2.8 % (0-4); BLOOD GAS HCO3 35 mmol/L (22-26); BLOOD GAS METHEMOGLOBIN 1.5 % (0-2); BLOOD GAS O2 HGB SATURATION 96 % (90-100); BLOOD GAS OXYGEN CONTENT 12.9 Vol % (12.0-20.0); BLOOD GAS PCO2 66 mmHg (38-42); BLOOD GAS PO2 235 mmHG (61-120); BLOOD GAS TOTAL HGB 9.1 G/DL (12.0-16.0); TEMP CORR TO 98.6
[2016-06-19 15:43] LABS: CRITICAL VALUE YES; DRAW SITE RT RADIAL; FIO2 60 %; NUMBER OF ARTERIAL PUNCTURES 2; OXYGEN DEVICE VENTILATOR; STAT NO; ULNAR PULSE PRESENT; VENT SETTINGS NPPV 16/12PS/5PEEP
--- NOTE | 2016-06-19 18:02 | RADRPT ---
EXAM DATE/TIME: 06/19/2016 17:15 [facility] COMPARISON: No previous studies available for comparison. INDICATIONS : Increased BUN/creatinine. MEDICAL HISTORY : Congestive heart failure. Hypercholesterolemia. Chronic obstructive pulmonary disease. CAD. Afib. Ast hma. Dyspnea. Ulcer. GERD. Renal failure. Diabetes. SURGICAL HISTORY : CABG. Cardiac cath. AICD. ENCOUNTER: Initial ACUITY: 1 day PAIN SCORE: Nonresponsive. LOCATION: Bilateral flank MEASUREMENTS: RIGHT KIDNEY: 10.6 x5.4 x 5.4 cm LEFT KIDNEY: 11.6 x 4.3 x 5.8 cm FINDINGS: Bilateral kidneys reveal normal size and configuration. There may be increased echogenicity of the co rtex suggesting renal parenchymal disease with no evidence of hydronephrosis and a possible 2.[address] lower pole left kidney. Mendiola catheter is in place in the bladder which is decompressed. CONCLUSION: No evidence of obstructive uropathy, hydronephrosis. Increased echogenicity of the renal cortex sugge sting parenchymal disease. Mendiola catheter in place in the urinary bladder Arsalan Juares MD on June 19, 2016 at 17:59 Board Certified Radiologist. This report was verified electronically.
[2016-06-19 19:52] LABS: BICARBONATE 37.5 MEQ/L (21.0-32.0); MAGNESIUM 2.9 MG/DL (1.5-2.5); POTASSIUM 4.8 MEQ/L (3.5-5.1); TOTAL PROTEIN SPE 6.7 GM/DL (6.0-7.6)
[2016-06-19] MEDS: ATORVASTATIN 10 MG TAB PO SCH (21:00)
[2016-06-19] MEDS: TAMSULOSIN HCL 0.4 MG CAP PO SCH (21:00)
[2016-06-19] MEDS ORDERED: SODIUM CHLORIDE 0.9% FLUSH 5 ML FLUSH IV FLUSH SCH (21:00)
[2016-06-19 21:05] LABS: KAPPA LAMBDA RATIO 2.17 (1.57-3.93)
[2016-06-19 21:39] LABS: BACTERIA, URINE RARE /hpf; BLOOD, URINE MOD (NEG); COMMENT (UR) CULTURE INDICATED; CULTURE IF INDICATED CULTURE INDICATED; GLUCOSE,URINE NEG (NEG); HYALINE CAST, URINE 1 /lpf (RARE); KETONE, URINE NEG (NEG); NITRITE,URINE NEG (NEG); PH, URINE 7.5 (5.0-8.5); URINE COLOR LIGHT-YELLOW (YELLW/STRAW)
--- NOTE | 2016-06-19 21:51 | MB ---
cc: NEDRA BORREGO MD DATE OF CONSULTATION 06/19/16 REASON FOR CONSULTATION Biventricular failure HISTORY OF PRESENT ILLNESS This 75-year-old white male was transferred to the emergency room today with shortness of breath and marked fluid overload from the rehabilitation. In May 2016 the patient was admitted to [facility] for cardiac issue and had upgrade of his pacemaker to a biventricular ICD. It complicated by renal failure and creatinine was as high as 3.7 according to the . He was transferred to rehab the last two weeks and has been progressively getting more swollen and gained 70 pounds in two weeks. He is known to have sleep apnea and ejection fraction on the report was questionably under 30%. He is a diabetic who could barely walk short distance. EKG showed biventricular pacing. The family is not at the bedside and most of the history obtained through the chart and patient is not that communicative with the C-PAP machine on his face. Apparently, the family and the patient do not want intubation. He has been followed by Dr. Garcia. ALLERGIES Unknown PAST MEDICAL HISTORY 1. coronary artery disease upgrade of a biventricular ICD two weeks ago in [place]. 2. Chronic renal failure, 3. Hypertension, 4. Diabetes, 5. Chronic atrial fibrillation 6. Bypass surgery in the past. MEDICATIONS At home, 1. Flomax. 2. Tylenol. 3. Coumadin 4. Tramadol 5. Aldactone 6. Bumex 7. Flexeril 8. Neurontin 9. Hydralazine 10. Allopurinol 11. Insulin 12. Duoneb 13. Coreg 14. ___ 15. Imdur 16. Fish oil 17. Baby aspirin. 18. Lipitor. FAMILY HISTORY Positive for diabetes SOCIAL HISTORY and retired. PHYSICAL EXAMINATION VITAL SIGNS: On day of consultation blood pressure is 116/53, pulse is 63 per minute, afebrile. NECK: Showed normal oral exam. Neck is supple. CHEST: Exam showed decreased air entry on BIPAP CARDIOVASCULAR: Showed swollen neck. S1-S2 decreased. No gross murmur. ABDOMEN: Examination revealed obese abdomen, possible ascites. INTERNET MARKETING ANALYST: Patient is arousable, moving four limbs slowly MUSCULOSKELETAL: Marked swelling of the whole body including four limbs and the face. IMPRESSION 1. Most likely biventricular failure, right side more than the left. 2. Renal failure. 3. Obstructive sleep apnea 4. History of hypertension and hyperlipidemia and type 2 diabetes 5. Chronic atrial fibrillation on Coumadin 6. Biventricular ICD recently two weeks ago in [place]. SUGGESTIONS Agree with aggressive diureses. Most of the failure right-sided. Echocardiogram has been ordered. I wonder about tricuspid insufficiency. His prognosis is guarded. Dr. Garcia will take over on Tuesday. Agree with renal consult MD GAMAL Damon/ /6:41 PM /9:24 PM MTDD
[2016-06-19] MEDS ORDERED: DEXTROSE 10% INJ 1,000 ML IV SCH (22:00)
[2016-06-20] VITALS (17 sets, daily range): BP systolic 106–134; BP diastolic 46–60; PULSE 59; RESP 15–27; TEMP 97.9–98.2; O2SAT 95–100
[2016-06-20] MEDS: CHLORHEXIDINE GLUCONATE 2 % 1 PACK (2 CLOTHS) TOP SCH (03:43)
[2016-06-20] MEDS: RESP: ALBUTEROL 2.5 MG/IPRATROPIUM 0.5 MG NEB (SCH) INH ×4 (04:10→20:43)
--- NOTE | 2016-06-20 05:24 | RADRPT ---
EXAM DATE/TIME: 06/20/2016 03:24 [place] COMPARISON: CHEST SINGLE AP, June 19, 2016, 0:07. INDICATIONS : Shortness of breath, possible pulmonary disease. MEDICAL HISTORY : Congestive heart failure. Diabetes mellitus type II. Gastroesophageal reflux disease. A-Fib Asthm a SURGICAL HISTORY : CABG. ENCOUNTER: Subsequent ACUITY: 2 days PAIN SCORE: 6/10 LOCATION: Bilateral chest FINDINGS: Interval development of partial consolidation in the left lower lung with loss of delineation of port ions of left hemidiaphragm. Indistinctness and prominence of the central bronchopulmonary markings a nd cardiomegaly is similar to prior. Evidence of prior median sternotomy. Cardiac pacer in place. Hemoclips in the right axilla. CONCLUSION: Interval developmental of patchy consolidation left lower lung. Rustam Hernández MD on June 20, 2016 at 5:21 Board Certified Radiologist. This report was verified electronically.
[2016-06-20] MEDS: INSULIN ASPART SUPPLEMENTAL SCALE SQ SCH ×4 (07:00→21:00)
[2016-06-20 07:13] LABS: BLOOD GAS BASE EXCESS 11.2 mmol/L (-2-2); BLOOD GAS CARBOXYHEMOGLOBIN 2.4 % (0-4); BLOOD GAS HCO3 37 mmol/L (22-26); BLOOD GAS METHEMOGLOBIN 0.9 % (0-2); BLOOD GAS O2 HGB SATURATION 96 % (90-100); BLOOD GAS OXYGEN CONTENT 13.3 Vol % (12.0-20.0); BLOOD GAS PCO2 67 mmHg (38-42); BLOOD GAS PO2 130 mmHg (61-120); BLOOD GAS TOTAL HGB 9.7 G/DL (12.0-16.0); CRITICAL VALUE YES; DRAW SITE RT RADIAL; FIO2 45 %; NUMBER OF ARTERIAL PUNCTURES 1; OXYGEN DEVICE VENTILATOR; TEMP CORR TO 98.6; VENT SETTINGS NPPV/SIMV
[2016-06-20 07:14] LABS: STAT NO; ULNAR PULSE PRESENT
[2016-06-20 07:16] LABS: HEMATOCRIT 28.3 % (39.0-51.0); MEAN CELL VOLUME 92.8 FL (80.0-100.0); MEAN CORPUSCULAR HEMOGLOBIN 29.3 PG (27.0-34.0); MEAN CORPUSCULAR HGB CONC 31.6 % (32.0-36.0); PLATELET COUNT 153 TH/MM3 (150-450); RED BLOOD COUNT 3.05 MIL/MM3 (4.50-5.90); RED CELL DISTRIBUTION WIDTH 18.1 % (11.6-17.2); REVIEW FLAG FINAL; WHITE BLOOD COUNT 6.4 TH/MM3 (4.0-11.0)
[2016-06-20 07:22] LABS: INTERNATIONAL NORMALIZED RATIO 2.9 RATIO; PROTHROMBIN TIME - PATIENT 33.1 SEC (9.8-11.6)
[2016-06-20 07:43] LABS: BICARBONATE 37.6 MEQ/L (21.0-32.0); INDIRECT BILIRUBIN 0.6 MG/DL (0.0-0.8); POTASSIUM 4.1 MEQ/L (3.5-5.1)
[2016-06-20 08:05] LABS: AUTOMATED NEUTROPHIL # 4.9 TH/MM3 (1.8-7.7); BASOPHIL # 0.1 TH/MM3 (0-0.2); BASOPHIL % 0.9 % (0.0-2.0); EOSINOPHIL # 0.1 TH/MM3 (0-0.4); EOSINOPHIL % 0.8 % (0.0-4.0); HEMATOCRIT 28.2 % (39.0-51.0); HEMO FLAGS DIFF FINAL; LYMPH % 11.4 % (9.0-44.0); LYMPHOCYTE # 0.7 TH/MM3 (1.0-4.8); MEAN CELL VOLUME 91.7 FL (80.0-100.0); MEAN CORPUSCULAR HEMOGLOBIN 28.8 PG (27.0-34.0); MEAN CORPUSCULAR HGB CONC 31.4 % (32.0-36.0); MONO % 10.3 % (0.0-8.0); NEUT % 76.6 % (16.0-70.0); PLATELET COUNT 157 TH/MM3 (150-450); RED BLOOD COUNT 3.07 MIL/MM3 (4.50-5.90); WHITE BLOOD COUNT 6.4 TH/MM3 (4.0-11.0)
[2016-06-20 08:19] LABS: BICARBONATE 40.2 MEQ/L (21.0-32.0); POTASSIUM 3.9 MEQ/L (3.5-5.1)
[2016-06-20] MEDS: FLUTICASONE 100 MCG/VILANTEROL 25 MCG INHALER INH SCH (09:00)
[2016-06-20] MEDS: ASPIRIN 81 MG CHEW TAB CHEW SCH (09:22)
[2016-06-20] MEDS: PANTOPRAZOLE SODIUM 40 MG VIAL IV SCH (09:22)
[2016-06-20] MEDS: CHLOROTHIAZIDE SOD 500 MG VIAL IV SCH ×2 (09:22→23:41)
[2016-06-20] MEDS: SODIUM CHLORIDE 0.9% FLUSH 5 ML FLUSH FLUSH SCH ×2 (09:22→23:20)
--- NOTE | 2016-06-20 11:40 | HHI.NPPN ---
Subjective History of Present Illness The patient is a 75 yo [place] male who was brought into the ED today with SOB, fluid overload from [facility]. and 2 children are present in the exam room and history is obtained from his family as the patient is currently obtunded. He apparently was recently in [facility] (May 2016) for cardiac issues and had an exchange of his cardiac pacer to include 2 leads versus just one which he had since 2001. After the procedure, his says that he had kidney troubles and his "numbers went to 3.7". She refers that he was "placed on a drip and his number improved to 2.6". He was discharged from that facility and has been at [facility] for the past 2 weeks. Since his discharge from [facility], he has had progressive edema and reported a 70 lb weight gain in the past 2 weeks. He does take outpatient diuretics, but the dose is uncertain. He came in with a Mendiola placed and as per was making urine, but was very dark. Since admission, he was given loading dose of Bumex and started on Bumex 2mg/hr drip. He was also given a dose of Diuril. UOP has improved. The patient is in respiratory distress and the patient's has opted against intubation as she feels that ultimately, the patient would not want this. Admitting SCr 1.97 that improved slightly to 1.85 at consult. Admitting K+ 5.6 that improved to 4.6 as consult Alb at 2.8. Interval History The patient is doing much better today. On BiPAP primarily, but did tolerate 4L per NC for a while today. Responding well to diuretics. (Karin Juarez) Objective Data Data 06/19/16 06/20/16 19:00 07:00 Intake Total 637 ml Output Total 1200 ml 4495 ml Balance -1200 ml -3858 ml Intake IV Total 637 ml Output Urine Total 1200 ml 4495 ml # Voids 0 # Bowel Movements 0 Vital Signs Date Time Temp Pulse Resp B/P Pulse Ox O2 Delivery O2 Flow Rate FiO2 06/20/16 09:30 97 Nasal Cannula 4.00 06/20/16 08:00 100 Bi-Pap 45 06/20/16 08:00 97.9 59 22 118/60 99 116/54 06/20/16 08:00 45 06/20/16 07:39 99 45 06/20/16 07:00 59 06/20/16 03:56 100 45 06/20/16 03:10 98.2 59 27 106/48 99 06/20/16 03:10 45 06/20/16 03:10 100 Bi-Pap 45 06/20/16 03:10 59 06/20/16 00:50 99 45 06/19/16 23:44 99 Bi-Pap 50 06/19/16 23:42 50 06/19/16 23:34 98.1 59 27 110/51 99 06/19/16 23:34 59 06/19/16 20:24 100 50 06/19/16 19:30 100 Bi-Pap 60 06/19/16 19:30 60 06/19/16 19:20 97.7 61 20 127/63 100 06/19/16 19:00 61 06/19/16 18:51 62 06/19/16 18:47 97.7 62 16 131/71 100 06/19/16 18:15 99 60 06/19/16 18:00 84 18 131/61 98 BiPAP 06/19/16 16:00 87 18 109/53 100 BiPAP 06/19/16 14:00 87 18 141/62 100 BiPAP 06/19/16 13:09 100 60 06/19/16 12:00 64 18 118/59 100 BiPAP (Karin Juarez) -: 06/20/16 0727 06/20/16 0727 Microbiology 06/19/16 Urine Culture, Received Pending Imaging Last Impressions Chest X-Ray 06/20/16 0600 Signed Impressions: Service Date/Time: Monday, June 20, 2016 03:24 - CONCLUSION: Interval developmental of patchy consolidation left lower lung. Rustam Hernández MD Renal Ultrasound 06/19/16 0000 Signed Impressions: Service Date/Time: Sunday, June 19, 2016 17:15 - CONCLUSION: No evidence of obstructive uropathy, hydronephrosis. Increased echogenicity of the renal cortex suggesting parenchymal disease. Mendiola catheter in place in the urinary bladder Arsalan Juares MD Medication Review Current Medications Medications (Trade) Dose Ordered Sig/Les Route Start Time Stop Time Status Last Admin (NS Flush) 2 ml UNSCH PRN FLUSH 06/19/16 04:15 (NS Flush) 2 ml BID FLUSH 06/19/16 09:00 06/20/16 09:22 (Zofran Inj) 4 mg Q6H PRN IVP 06/19/16 04:15 (Tylenol) 650 mg Q6H PRN PO 06/19/16 04:15 Hold ([place] 5-325 Mg) 1 tab Q4H PRN PO 06/19/16 04:15 Hold (Zyloprim) 100 mg BID PO 06/19/16 09:00 Hold (Aspirin Chew) 81 mg DAILY CHEW 06/19/16 09:00 06/20/16 09:22 (Lipitor) 10 mg HS PO 06/19/16 21:00 (Coreg) 6.25 mg BID PO 06/19/16 09:00 Hold (Ferrous Sulfate) 325 mg DAILY PO 06/19/16 09:00 Hold (Breo Ellipta 100-25 Inh) 1 puff DAILY INH 06/19/16 09:00 (Apresoline) 10 mg BID PO 06/19/16 09:00 Hold (Aldactone) 25 mg DAILY PO 06/19/16 09:00 Hold (Flomax) 0.4 mg HS PO 06/19/16 21:00 (D50w (Vial) Inj) 25 ml UNSCH PRN IV PUSH 06/19/16 05:15 06/19/16 11:00 Glucagon 1 mg 1 mg UNSCH PRN OTHER 06/19/16 05:15 (Bumex Inj) 100 ml @ 8 mls/hr CONTINUOUS IV 06/19/16 13:00 06/19/16 20:10 (Protonix Inj) 40 mg DAILY IV 06/20/16 09:00 06/20/16 09:22 Miscellaneous Information 1 Q361D XX 06/19/16 11:45 06/19/16 11:45 (Chlorhexidine 2% Cloth) 3 pack Taper DAILY@04 TOP 06/20/16 04:00 06/16/17 03:59 06/20/16 03:43 Chlorhexidine Gluconate 3 pack 3 pack UNSCH PRN TOP 06/19/16 11:45 (Dextrose 10% In Water Inj) 1,000 ml @ 20 mls/hr Q24H IV 06/19/16 22:00 06/19/16 22:20 (Diamox Inj) 500 mg Q8H IV PUSH 06/20/16 06:45 06/20/16 08:02 (Diuril Inj) 500 mg Q12HR IV 06/20/16 09:00 06/20/16 09:22 (Karin Juarez) Physical Exam General Appearance: Comfortable (Karin Juarez) Neck Neck Exam: Neck Supple, Trachea Midline (Karin Juarez) Pulmonary Resp Exam: Clear Bilaterally, Breath Sounds Equal (Karin Juarez) Cardiology CV Exam: Regular, Normal Sinus Rhythm (Karin Juarez) Integumentary Skin Exam: Warm (Karin Juarez) Extremeties Extremities Exam: Pitting Edema Extremeties Remarks Considerable, generalized edema--slightly improved from before (Karin Juarez) Assessment/Plan Problem List: (1) Renal insufficiency Plan: The patient's baseline renal functions are not known. According to ' s recollection, his SCr has improved from what he was in [place]. Records are pending. He was supposed to have establishment visit with Dr. Burns as outpatient coming up this month. Acute renal decline likely related to cardiac decompensation. Continue with diuresis. Consideration to decrease Bumex to 1mg/hr if agreeable by critical care. Otherwise, we will continue to monitor closely. (2) CHF (congestive heart failure) Plan: Pending Echo report. Diurese as ordered (3) Diabetes mellitus Plan: Mgmt as per primary (4) Hypertension Plan: Stable. Monitor (5) CAD (coronary artery disease) Plan: Mgmt as per cardiology (Karin Juarez) Plan Physical examination, evaluation and assessment reviewed and discussed with my PA. I was fully involved in the evaluation and plan of care this patient. Doctor Timothy. (Evangelista Aguirre MD) Karin Juarez Jun 20, 2016 11:40 Evangelista Aguirre MD Jul 20, 2016 11:34
[2016-06-20] MEDS: CHOLECALCIFEROL (VIT D3) 1000 UNIT TAB PO SCH (12:31)
[2016-06-20] MEDS ORDERED: WARFARIN SOD 5 MG TAB PO SCH (16:00)
--- NOTE | 2016-06-20 16:55 | PD.CARD.PN ---
Subjective Subjective Remarks Biventricular failure, right side much worse, good diuresis Objective Vital Signs / I&O Vital Signs Date Time Temp Pulse Resp B/P Pulse Ox O2 Delivery O2 Flow Rate FiO2 06/20/16 16:00 100 Bi-Pap 45 06/20/16 16:00 45 06/20/16 16:00 59 06/20/16 15:59 97.9 59 22 125/50 99 06/20/16 11:50 100 Bi-Pap 45 06/20/16 11:50 45 06/20/16 11:49 59 06/20/16 11:47 98.0 59 20 99 134/49 06/20/16 11:10 98 45 06/20/16 09:30 97 Nasal Cannula 4.00 06/20/16 09:30 96 Nasal Cannula 4.00 06/20/16 08:00 100 Bi-Pap 45 06/20/16 08:00 97.9 59 22 118/60 99 116/54 06/20/16 08:00 45 06/20/16 07:39 99 45 06/20/16 07:00 59 06/20/16 03:56 100 45 06/20/16 03:10 98.2 59 27 106/48 99 06/20/16 03:10 45 06/20/16 03:10 100 Bi-Pap 45 06/20/16 03:10 59 06/20/16 00:50 99 45 06/19/16 23:44 99 Bi-Pap 50 06/19/16 23:42 50 06/19/16 23:34 98.1 59 27 110/51 99 06/19/16 23:34 59 06/19/16 20:24 100 50 06/19/16 19:30 100 Bi-Pap 60 06/19/16 19:30 60 06/19/16 19:20 97.7 61 20 127/63 100 06/19/16 19:00 61 06/19/16 18:51 62 06/19/16 18:47 97.7 62 16 131/71 100 06/19/16 18:15 99 60 06/19/16 18:00 84 18 131/61 98 BiPAP I/O 06/19/16 06/19/16 06/19/16 06/20/16 06/20/16 06/20/16 07:00 15:00 23:00 07:00 15:00 23:00 Intake Total 637 ml Output Total 550 ml 1200 ml 4495 ml Balance -550 ml -1200 ml -3858 ml Intake IV Total 637 ml Output Urine Total 550 ml 1200 ml 4495 ml # Voids 0 # Bowel Movements 0 Physical Exam GENERAL: SKIN: Warm and dry. HEAD: Normocephalic. EYES: No scleral icterus. No injection or drainage. NECK: Supple, trachea midline. No JVD or lymphadenopathy. CARDIOVASCULAR: Regular rate, heart sound distant. Marked swelling of the lower extremities RESPIRATORY: Breath sounds equal bilaterally. No accessory muscle use. GASTROINTESTINAL: Abdomen soft, distended possible ascite. MUSCULOSKELETAL: No cyanosis, or edema. BACK: Nontender without obvious deformity. No CVA tenderness. Laboratory Laboratory Tests Test 06/19/16 06/19/16 06/20/16 06/20/16 19:00 20:51 06:10 06:45 Sodium Level 142 MEQ/L 142 MEQ/L Potassium Level 4.8 MEQ/L 4.1 MEQ/L Chloride Level 99 MEQ/L 97 MEQ/L Carbon Dioxide Level 37.5 MEQ/L 37.6 MEQ/L Blood Urea Nitrogen 70 MG/DL 70 MG/DL Creatinine 1.82 MG/DL 1.82 MG/DL Random Glucose 70 MG/DL 81 MG/DL Calcium Level 8.5 MG/DL 8.7 MG/DL Magnesium Level 2.9 MG/DL Ammonia 37 MCMOL/L Parathyroid Hormone (Intact) 124.3 PG/ML Anion Gap 6 MEQ/L 7 MEQ/L Estimat Glomerular Filtration 36 ML/MIN 36 ML/MIN Rate Total Protein 6.7 GM/DL 6.5 GM/DL 25-Hydroxy Vitamin D Total 26.7 ng/ML Immunoglobulin G Total 890 MG/DL Immunoglobulin A 651 MG/DL Immunoglobulin [place]/Lambda 2.17 Ratio [place] Light Chain Analysis 351 MG/DL Lambda Light Chain Analysis 162 MG/DL Urine Color LIGHT-YELLOW Urine Turbidity HAZY Urine pH 7.5 Urine Specific [place] 1.006 Urine Protein NEG mg/dL Urine Glucose (UA) NEG mg/dL Urine Ketones NEG mg/dL Urine Occult Blood MOD Urine Nitrite NEG Urine Bilirubin NEG Urine Urobilinogen LESS THAN 2.0 MG/DL Urine Leukocyte Esterase LARGE Urine RBC 93 /hpf Urine WBC 39 /hpf Urine Bacteria RARE /hpf Urine Hyaline Casts 1 /lpf Microscopic Urinalysis Comment CULTURE INDICATED Urine Random Creatinine LESS THAN 13 MG/DL Urine Random Total Protein 7 MG/DL Urine Protein/Creatinine Ratio 0.00 White Blood Count 6.4 TH/MM3 Red Blood Count 3.05 MIL/MM3 Hemoglobin 8.9 GM/DL Hematocrit 28.3 % Mean Corpuscular Volume 92.8 FL Mean Corpuscular Hemoglobin 29.3 PG Mean Corpuscular Hemoglobin 31.6 % Concent Red Cell Distribution Width 18.1 % Platelet Count 153 TH/MM3 Mean Platelet Volume 8.5 FL Prothrombin Time 33.1 SEC Prothromb Time International 2.9 RATIO Ratio Total Bilirubin 1.0 MG/DL Direct Bilirubin 0.4 MG/DL Indirect Bilirubin 0.6 MG/DL Aspartate Amino Transf 20 U/L (AST/SGOT) Alanine Aminotransferase 20 U/L (ALT/SGPT) Alkaline Phosphatase 162 U/L Albumin 2.8 GM/DL Blood Gas Puncture Site RT RADIAL Blood Gas Patient Temperature 98.6 Blood Gas HCO3 37 mmol/L Blood Gas Base Excess 11.2 mmol/L Blood Gas Oxygen Saturation 96 % Arterial Blood pH 7.36 Arterial Blood Partial 67 mmHg Pressure CO2 Arterial Blood Partial 130 mmHg Pressure O2 Arterial Blood Oxygen Content 13.3 Vol % Arterial Blood 2.4 % Carboxyhemoglobin Arterial Blood Methemoglobin 0.9 % Blood Gas Hemoglobin 9.7 G/DL Oxygen Delivery Device VENTILATOR Blood Gas Ventilator Setting NPPV/SIMV Blood Gas Inspired Oxygen 45 % Test 06/20/16 07:27 White Blood Count 6.4 TH/MM3 Red Blood Count 3.07 MIL/MM3 Hemoglobin 8.9 GM/DL Hematocrit 28.2 % Mean Corpuscular Volume 91.7 FL Mean Corpuscular Hemoglobin 28.8 PG Mean Corpuscular Hemoglobin 31.4 % Concent Red Cell Distribution Width 18.0 % Platelet Count 157 TH/MM3 Mean Platelet Volume 8.4 FL Neutrophils (%) (Auto) 76.6 % Lymphocytes (%) (Auto) 11.4 % Monocytes (%) (Auto) 10.3 % Eosinophils (%) (Auto) 0.8 % Basophils (%) (Auto) 0.9 % Neutrophils # (Auto) 4.9 TH/MM3 Lymphocytes # (Auto) 0.7 TH/MM3 Monocytes # (Auto) 0.7 TH/MM3 Eosinophils # (Auto) 0.1 TH/MM3 Basophils # (Auto) 0.1 TH/MM3 CBC Comment DIFF FINAL Differential Comment Sodium Level 143 MEQ/L Potassium Level 3.9 MEQ/L Chloride Level 96 MEQ/L Carbon Dioxide Level 40.2 MEQ/L Anion Gap 7 MEQ/L Blood Urea Nitrogen 69 MG/DL Creatinine 1.79 MG/DL Estimat Glomerular Filtration 37 ML/MIN Rate Random Glucose 104 MG/DL Calcium Level 8.7 MG/DL Assessment and Plan Problem List: (1) Renal insufficiency (2) CAD (coronary artery disease) (3) AICD (automatic cardioverter/defibrillator) present (4) CHF (congestive heart failure) Assessment and Plan: Biventricular failure, right sided more than the left, continue diuresis Alvin Meyers MD Jun 20, 2016 16:55
[2016-06-20] MEDS: ATORVASTATIN 10 MG TAB PO SCH (21:00)
[2016-06-20] MEDS: TAMSULOSIN HCL 0.4 MG CAP PO SCH (21:00)
--- NOTE | 2016-06-20 21:12 | HHI.CCPN ---
Subjective Remarks/Hospital Course Hospital Course: This is a 75yM with a history of NYHA class III/IV heart failure, poorly controlled diabetes, obstructive sleep apnea who recently had an AICD placed at an outside facility. At that time, per his family, his "kidneys shut down" and he was hospitalized while they recovered. they reportedly started to recover and he was sent to a rehab center. His states that his kidney number was around 2.5 when he left at the end of may, presumably his serum creatinine. Since that time, his family states that despite diuretic therapy, he has gained 70 lbs. He has become so edematous that his arms and legs have seeping open sores. He has had a significant functional decline, and over the last few days has been progressively somnolent. Today he is brought in for for altered mental status. He was admitted initially to the hospitalist team with a CHF exacerbation, and placed on BiPAP for hypercarbic respiratory failure, and when it did not improve, Critical Care medicine was consulted. I had a long discussion with the family. Per them, his heart is restricted in its function, and maybe 30% (EF?). His diabetes was poorly controlled, and he was no longer wearing his CPAP machine for ROSE MARIE. He could barely walk 50 ft without significant dyspnea, and he was starting to have difficulty talking on the phone without getting dyspneic. Today, his laboratory data is significant for a Cr 1.9, a BNP of 124, trop 0.03 , AST/ALT 48/23, Alk phos 174, INR 3.1 on coumadin. Subjective: 06/20: net -5L overnight. patient more awake. getting significantly alkalotic, though I think we have to press on with aggressive diuresis despite worsening contraction alkalosis. I again discussed with the family the likely poor prognosis, and again we have mutual goals for being conservatively aggressive with an understanding that if we downtrend clinically, we will transition to comfort. Objective Vital Signs Date Time Temp Pulse Resp B/P Pulse Ox O2 Delivery O2 Flow Rate FiO2 06/20/16 20:20 98 Nasal Cannula 4.00 06/20/16 16:00 45 06/20/16 16:00 59 06/20/16 15:59 97.9 22 125/50 Intake and Output 06/19/16 06/19/16 06/20/16 08:00 16:00 00:00 Output Total 550 ml 1200 ml Balance -550 ml -1200 ml Result Diagram: 06/20/16 0727 06/20/16 0727 Other Results Laboratory Tests Test 06/20/16 06:45 Blood Gas Puncture Site RT RADIAL Blood Gas Patient Temperature 98.6 Blood Gas HCO3 37 mmol/L (22-26) Blood Gas Base Excess 11.2 mmol/L (-2-2) Blood Gas Oxygen Saturation 96 % (90-100) Arterial Blood pH 7.36 (7.380-7.420) Arterial Blood Partial 67 mmHg (38-42) Pressure CO2 Arterial Blood Partial 130 mmHg Pressure O2 (61-120) Arterial Blood Oxygen Content 13.3 Vol % (12.0-20.0) Arterial Blood 2.4 % (0-4) Carboxyhemoglobin Arterial Blood Methemoglobin 0.9 % (0-2) Blood Gas Hemoglobin 9.7 G/DL (12.0-16.0) Oxygen Delivery Device VENTILATOR Blood Gas Ventilator Setting NPPV/SIMV Blood Gas Inspired Oxygen 45 % Objective Remarks gen: morbidly obese male, lying in bed, somnolent, arousable to loud voice, in mild distress this AM. heent: ncat. pupils equal and reactive. mucous membranes moist. neck: trachea midline. BiPAP mask in place. jvd unable to assess due to body habitus. chest: diminished bilaterally. equal air entry. no wheezes cv: normal rate, regular rhythm. appears sinus on the monitor. muffled heart sounds. no appreciable murmurs abd: obese, soft, nontender, nondistended. no guarding. extr: grossly anasarcic including all 4 extremities. small areas of bullae with clear fluid seeping. distal pulses 1+. neuro: RASS -2, follows commands in all 4 extremities with some prompting. Procedures None A/P Assessment and Plan Assessment: This is a 75yM with history of cardiomyopathy, unknown type, and NYHA class III/IV symptoms who presents with 70 lb weight gain over 1-2 weeks and extreme volume overload and cor pulmonale. He remains critically ill, and if we do not successfully continue aggressive diuresis, he will . In addition, we persist with respiratory failure requiring high NIPPV support. Plan by systems: Neurologic: Metabolic encephalopathy Likely secondary to hepatic dysfunction and CO2 narcosis, very slowly improving. holding off on lactulose given BiPAP and aspiration risk, as we are keeping him NPO. Every hour neurochecks Avoid sedating medications Respiratory: Acute hypercarbic respiratory failure Acute respiratory failure exacerbation, unknown type. Suspected mixed systolic and diastolic. Continue BiPAP The patient is DNI. We will not pursue intubation --daily ABG. we need to carefully watch his CO2 in the setting of metabolic alkalosis. Wean FiO2 for goal SPO2 greater than 90% Cardiovascular: Acute Congestive heart failure exacerbation, unknown type. Suspected mixed systolic and diastolic. Continue telemetry Renal: Acute kidney injury Continue Mendiola catheter -- Strict I/Os FEN/GI: Severe acute intravascular volume overload Congestive hepatopathy Severe metabolic alkalosis Bumex drip at 2 mg an hour Diuril 500 mg IV q12h --Diamox 500mg IV q8h Goal net -4 L by the morning If he does not diurese as expected, we may need to change our goals to comfort measures as I'm not sure his degree of heart failure at the moment the salvageable. serial K by IL-GEM ABG as we are diuresing. Nothing by mouth while on BiPAP A.m. LFTs AM BMP We will not give lactulose given the fact that the patient is too altered to control his airway, and I do not want vomiting and aspiration to worsen his condition. We will hold all of his by mouth meds in the setting of his significant altered mental status Heme/ID: Supratherapeutic INR Coagulopathy Likely secondary to renal dysfunction and hepatic dysfunction Daily CBC Daily coags holding Coumadin, will restart if INR is less than 1.7 Endocrine: Hyperglycemia of critical illness Diabetes -- SSI, medium scale, every 6 hours Prophylaxis: GI Prophylaxis Protonix 40 mg IV daily 24 hours DVT Prophylaxis -- SCDs Supratherapeutic INR. Holding pharmacologic DVT prophylaxis. Lines: Peripheral IVs --will place arterial line for frequent blood gas analysis. Dispo: Remain in the ICU. His clinical condition remains guarded at this time. I expressed my concerns the family. He may not survive this hospital stay. This patient remains critically ill with one or more organ systems which are or may become a threat to life. I have spent in excess of 40 minutes discontinuously in the care and management of this patient. This time is exclusive of procedures, and includes, but is not limited to, evaluation of the patient, review of the medical record, discussions with family, consultants, nursing staff, or respiratory therapy, and documentation in the medical record. Louis Newby MD Jun 20, 2016 21:12
--- NOTE | 2016-06-20 21:13 | PD.PROCEDR ---
Procedure Note Procedure Procedure: Arterial Line Placement Right radial arterial line Diagnosis: Cor pulmonale Indications: Need for serial arterial blood gas sampling Consent: Consent is deemed emergent or medically necessary Description of the Procedure: The right wrist was prepped and draped sterilely. 1% lidocaine was used for local anesthesia. The pulse was located and a needle was advanced into the artery. A 20 gauge, 12 cm catheter was advanced into the artery using a modified Seldinger technique. The catheter was sutured to the skin and a sterile dressing was applied. The catheter was connected to a pressure transducer and an arterial waveform was noted. There were no immediate complications noted. There was minimal EBL. I personally performed the procedure. Louis Newby MD Jun 20, 2016 21:13
[2016-06-20] MEDS: BUMETANIDE INJ 100 ML IV SCH (23:17)
[2016-06-21] VITALS (17 sets, daily range): BP systolic 112–158; BP diastolic 49–67; PULSE 59–63; RESP 17–19; TEMP 97.7–98.7; O2SAT 94–100
[2016-06-21] MEDS: RESP: ALBUTEROL 2.5 MG/IPRATROPIUM 0.5 MG NEB (SCH) INH ×4 (03:56→20:50)
[2016-06-21] MEDS: CHLORHEXIDINE GLUCONATE 2 % 1 PACK (2 CLOTHS) TOP SCH (04:00)
[2016-06-21 04:56] LABS: HEMATOCRIT 28.5 % (39.0-51.0); MEAN CELL VOLUME 92.2 FL (80.0-100.0); MEAN CORPUSCULAR HEMOGLOBIN 29.9 PG (27.0-34.0); MEAN CORPUSCULAR HGB CONC 32.4 % (32.0-36.0); PLATELET COUNT 158 TH/MM3 (150-450); RED BLOOD COUNT 3.09 MIL/MM3 (4.50-5.90); RED CELL DISTRIBUTION WIDTH 17.8 % (11.6-17.2); REVIEW FLAG FINAL; WHITE BLOOD COUNT 6.2 TH/MM3 (4.0-11.0)
[2016-06-21 05:31] LABS: BICARBONATE 39.8 MEQ/L (21.0-32.0); INDIRECT BILIRUBIN 0.5 MG/DL (0.0-0.8); POTASSIUM 3.4 MEQ/L (3.5-5.1)
[2016-06-21] MEDS: INSULIN ASPART SUPPLEMENTAL SCALE SQ SCH ×4 (06:01→20:11)
[2016-06-21] MEDS: ASPIRIN 81 MG CHEW TAB CHEW SCH (09:00)
[2016-06-21] MEDS: FLUTICASONE 100 MCG/VILANTEROL 25 MCG INHALER INH SCH (09:00)
[2016-06-21] MEDS: CHOLECALCIFEROL (VIT D3) 1000 UNIT TAB PO SCH (09:00)
[2016-06-21] MEDS: CHLOROTHIAZIDE SOD 500 MG VIAL IV SCH ×2 (09:00→20:13)
[2016-06-21] MEDS: PANTOPRAZOLE SODIUM 40 MG VIAL IV SCH (09:01)
[2016-06-21] MEDS: SODIUM CHLORIDE 0.9% FLUSH 5 ML FLUSH FLUSH SCH ×2 (09:01→20:13)
--- NOTE | 2016-06-21 10:01 | HHI.CCPN ---
Subjective Remarks/Hospital Course Hospital Course: This is a 75yM with a history of NYHA class III/IV heart failure, poorly controlled diabetes, obstructive sleep apnea who recently had an AICD placed at an outside facility. At that time, per his family, his "kidneys shut down" and he was hospitalized while they recovered. they reportedly started to recover and he was sent to a rehab center. His states that his kidney number was around 2.5 when he left at the end of may, presumably his serum creatinine. Since that time, his family states that despite diuretic therapy, he has gained 70 lbs. He has become so edematous that his arms and legs have seeping open sores. He has had a significant functional decline, and over the last few days has been progressively somnolent. Today he is brought in for for altered mental status. He was admitted initially to the hospitalist team with a CHF exacerbation, and placed on BiPAP for hypercarbic respiratory failure, and when it did not improve, Critical Care medicine was consulted. I had a long discussion with the family. Per them, his heart is restricted in its function, and maybe 30% (EF?). His diabetes was poorly controlled, and he was no longer wearing his CPAP machine for ROSE MARIE. He could barely walk 50 ft without significant dyspnea, and he was starting to have difficulty talking on the phone without getting dyspneic. Today, his laboratory data is significant for a Cr 1.9, a BNP of 124, trop 0.03 , AST/ALT 48/23, Alk phos 174, INR 3.1 on coumadin. Subjective: 06/20: net -5L overnight. patient more awake. getting significantly alkalotic, though I think we have to press on with aggressive diuresis despite worsening contraction alkalosis. I again discussed with the family the likely poor prognosis, and again we have mutual goals for being conservatively aggressive with an understanding that if we downtrend clinically, we will transition to comfort. 06/21: No acute issues overnight. The patient remained on CPAP overnight maintaining an O2 saturation of 97%. The patient was diuresed -5 L in the last 24 hours, he continues on Bumex infusion at 2 mg an hour. Discussion with family this a.m. and plans for transition to comfort care measures. Awaiting palliative care meeting this a.m.. Objective Vital Signs Date Time Temp Pulse Resp B/P Pulse Ox O2 Delivery O2 Flow Rate FiO2 06/21/16 08:42 97 40 06/21/16 07:37 98.0 59 19 135/49 126/49 06/21/16 07:35 Nasal Cannula 3.00 Intake and Output 06/20/16 06/20/16 06/21/16 08:00 16:00 00:00 Intake Total 637 ml 456 ml Output Total 4495 ml 3120 ml Balance -3858 ml -2664 ml Result Diagram: 06/21/1644906/21/16449 Objective Remarks Gen: Super morbidly obese male, lying in bed, awake, not responding to questions appropriately. HEENT: PERRLA. mucous membranes moist. NECK: trachea midline. BiPAP mask in place. No JVD. CHEST: diminished bilaterally. equal air entry. no wheezes CV: normal rate, regular rhythm, SR. muffled heart sounds. no appreciable murmurs ABD: obese, soft, nontender, nondistended. no guarding. MSK: Edematous 4. small areas of bullae with clear fluid seeping. distal pulses 1+. NEURO: RASS 0, follows commands in all 4 extremities. Procedures None Urinary Catheter: Yes Mendiola insert reason: ICU Pt Getting Diuretics A/P Assessment and Plan Assessment: This is a 75yM with history of cardiomyopathy, unknown type, and NYHA class III/IV symptoms who presents with 70 lb weight gain over 1-2 weeks and extreme volume overload and cor pulmonale. He remains critically ill, and if we do not successfully continue aggressive diuresis, he will . In addition, we persist with respiratory failure requiring high NIPPV support. Plan by systems: Neurologic: Metabolic encephalopathy Likely secondary to hepatic dysfunction Every hour neurochecks Avoid sedating medications Respiratory: Acute hypercarbic respiratory failure Acute respiratory failure exacerbation, unknown type. Suspected mixed systolic and diastolic. Asthma Continue BiPAP 10/5 .40% The patient is DNI. We will not pursue intubation --F/U ABG Wean FiO2 for goal SPO2 greater than 90% -Bronchodilators PRN Cardiovascular: Acute Congestive heart failure exacerbation, unknown type Biventricular failure H/O atrial fibrillation Continue telemetry -Cardiology on [id number] recommendations Renal: Acute kidney injury Continue Mendiola catheter -- Strict I/Os FEN/GI: Severe acute intravascular volume overload Congestive hepatopathy Severe metabolic alkalosis Bumex drip at 2 mg an hour Diuril 500 mg IV q12h --Diamox 500mg IV q8h serial K by IL-GEM ABG as we are diuresing. Nothing by mouth while on BiPAP AM BMP-contraction alkalosis secondary to diuresis We will hold all of his by mouth meds in the setting of his significant altered mental status Heme/ID: Supratherapeutic INR Coagulopathy Likely secondary to renal dysfunction and hepatic dysfunction Daily CBC Daily coags holding Coumadin, will restart if INR is less than 1.7 Endocrine: Hyperglycemia of critical illness Diabetes -- SSI, medium scale, every 6 hours Prophylaxis: GI Prophylaxis Protonix 40 mg IV daily 24 hours DVT Prophylaxis -- SCDs Supratherapeutic INR. Holding pharmacologic DVT prophylaxis. Lines: Peripheral IVs --will place arterial line for frequent blood gas analysis. Dispo: Remain in the ICU. His clinical condition remains guarded at this time. I expressed my concerns the family. He may not survive this hospital stay. The patient has decided on comfort care measures. Palliative care consult pending. This patient remains critically ill with one or more organ systems which are or may become a threat to life. I have spent in excess of 34 minutes discontinuously in the care and management of this patient. This time is exclusive of procedures, and includes, but is not limited to, evaluation of the patient, review of the medical record, discussions with family, consultants, nursing staff, or respiratory therapy, and documentation in the medical record. Physician Josie Rosas MD Jun 21, 2016 10:01
--- NOTE | 2016-06-21 10:29 | HHI.PR ---
Subjective Remarks pt is on CPAP Objective Vital Signs Date Time Temp Pulse Resp B/P Pulse Ox O2 Delivery O2 Flow Rate FiO2 06/21/16 08:42 97 40 06/21/16 07:37 98.0 59 19 135/49 97 126/49 06/21/16 07:36 59 06/21/16 07:35 97 Nasal Cannula 3.00 06/21/16 07:13 95 Nasal Cannula 3.00 06/21/16 04:33 95 Nasal Cannula 3.00 06/21/16 04:00 99 35 06/21/16 03:07 98.0 59 18 158/67 99 134/60 06/21/16 03:07 99 Bi-Pap 40 06/21/16 03:07 59 06/21/16 03:07 40 06/21/16 01:13 99 40 06/20/16 23:07 99 Bi-Pap 4.00 40 06/20/16 23:07 59 06/20/16 23:07 40 06/20/16 23:07 98.2 59 15 116/54 99 120/46 06/20/16 21:20 99 40 06/20/16 21:00 40 06/20/16 20:20 98 Nasal Cannula 4.00 06/20/16 19:22 95 Nasal Cannula 4.00 06/20/16 19:22 98.0 59 21 132/51 95 127/49 06/20/16 19:00 59 06/20/16 16:00 100 Bi-Pap 45 06/20/16 16:00 45 06/20/16 16:00 59 06/20/16 15:59 97.9 59 22 125/50 99 06/20/16 11:50 100 Bi-Pap 45 06/20/16 11:50 45 06/20/16 11:49 59 06/20/16 11:47 98.0 59 20 99 134/49 06/20/16 11:10 98 45 I/O 06/20/16 06/20/16 06/20/16 06/21/16 06/21/16 06/21/16 06:59 14:59 22:59 06:59 14:59 22:59 Intake Total 637 ml 456 ml 250 ml Output Total 4495 ml 3120 ml 2685 ml Balance -3858 ml -2664 ml -2435 ml Intake Oral 120 ml IV Total 637 ml 336 ml 250 ml Output Urine Total 4495 ml 3120 ml 2685 ml # Bowel Movements 0 0 vss chest: rales B/L HEART: S1,S2,AFIB ABD: ST EXT: edema Result Diagram: 06/21/1644906/21/16449 Assessment and Plan Assessment and Plan pt is diuresing well... renal function slightly worse. INR therapeutic. pt is DNR. conservative management. I will follow as needed. Livan Colin MD Jun 21, 2016 10:29
[2016-06-21 10:44] LABS: ALBUMIN SPE 3.52 GM/DL (3.50-5.00); ALPHA 1 GLOBULIN 0.32 GM/DL (0.11-0.29); ALPHA 2 GLOBULIN 0.8 GM/DL (0.22-1.00); BETA GLOBULINS (SPE) 0.76 GM/DL (0.53-1.03)
--- NOTE | 2016-06-21 11:10 | HHI.NPPN ---
Subjective History of Present Illness The patient is a 75 yo [place] male who was brought into the ED today with SOB, fluid overload from [facility]. and 2 children are present in the exam room and history is obtained from his family as the patient is currently obtunded. He apparently was recently in [facility] (May 2016) for cardiac issues and had an exchange of his cardiac pacer to include 2 leads versus just one which he had since 2001. After the procedure, his says that he had kidney troubles and his "numbers went to 3.7". She refers that he was "placed on a drip and his number improved to 2.6". He was discharged from that facility and has been at [facility] for the past 2 weeks. Since his discharge from [facility], he has had progressive edema and reported a 70 lb weight gain in the past 2 weeks. He does take outpatient diuretics, but the dose is uncertain. He came in with a Mendiola placed and as per was making urine, but was very dark. Since admission, he was given loading dose of Bumex and started on Bumex 2mg/hr drip. He was also given a dose of Diuril. UOP has improved. The patient is in respiratory distress and the patient's has opted against intubation as she feels that ultimately, the patient would not want this. Admitting SCr 1.97 that improved slightly to 1.85 at consult. Admitting K+ 5.6 that improved to 4.6 as consult Alb at 2.8. Interval History The patient's fluid status is improving slowly. (Karin Juarez) Objective Data Data 06/20/16 06/21/16 19:00 07:00 Intake Total 456 ml 250 ml Output Total 3120 ml 2685 ml Balance -2664 ml -2435 ml Intake Oral 120 ml IV Total 336 ml 250 ml Output Urine Total 3120 ml 2685 ml # Bowel Movements 0 Vital Signs Date Time Temp Pulse Resp B/P Pulse Ox O2 Delivery O2 Flow Rate FiO2 06/21/16 08:42 97 40 06/21/16 07:37 98.0 59 19 135/49 97 126/49 06/21/16 07:36 59 06/21/16 07:35 97 Nasal Cannula 3.00 06/21/16 07:13 95 Nasal Cannula 3.00 06/21/16 04:33 95 Nasal Cannula 3.00 06/21/16 04:00 99 35 06/21/16 03:07 98.0 59 18 158/67 99 134/60 06/21/16 03:07 99 Bi-Pap 40 06/21/16 03:07 59 06/21/16 03:07 40 06/21/16 01:13 99 40 06/20/16 23:07 99 Bi-Pap 4.00 40 06/20/16 23:07 59 06/20/16 23:07 40 06/20/16 23:07 98.2 59 15 116/54 99 120/46 06/20/16 21:20 99 40 06/20/16 21:00 40 06/20/16 20:20 98 Nasal Cannula 4.00 06/20/16 19:22 95 Nasal Cannula 4.00 06/20/16 19:22 98.0 59 21 132/51 95 127/49 06/20/16 19:00 59 06/20/16 16:00 100 Bi-Pap 45 06/20/16 16:00 45 06/20/16 16:00 59 06/20/16 15:59 97.9 59 22 125/50 99 06/20/16 11:50 100 Bi-Pap 45 06/20/16 11:50 45 06/20/16 11:49 59 06/20/16 11:47 98.0 59 20 99 134/49 06/20/16 11:10 98 45 (Karin Juarez) -: 06/21/16 0450 06/21/16 0450 Medication Review Current Medications Medications (Trade) Dose Ordered Sig/Les Route Start Time Stop Time Status Last Admin (NS Flush) 2 ml UNSCH PRN FLUSH 06/19/16 04:15 (NS Flush) 2 ml BID FLUSH 06/19/16 09:00 06/21/16 09:01 (Zofran Inj) 4 mg Q6H PRN IVP 06/19/16 04:15 (Tylenol) 650 mg Q6H PRN PO 06/19/16 04:15 Hold (Kyburz 5-325 Mg) 1 tab Q4H PRN PO 06/19/16 04:15 Hold (Zyloprim) 100 mg BID PO 06/19/16 09:00 Hold (Aspirin Chew) 81 mg DAILY CHEW 06/19/16 09:00 06/21/16 09:00 (Lipitor) 10 mg HS PO 06/19/16 21:00 (Coreg) 6.25 mg BID PO 06/19/16 09:00 Hold (Ferrous Sulfate) 325 mg DAILY PO 06/19/16 09:00 Hold (Breo Ellipta 100-25 Inh) 1 puff DAILY INH 06/19/16 09:00 (Apresoline) 10 mg BID PO 06/19/16 09:00 Hold (Aldactone) 25 mg DAILY PO 06/19/16 09:00 Hold (Flomax) 0.4 mg HS PO 06/19/16 21:00 (D50w (Vial) Inj) 25 ml UNSCH PRN IV PUSH 06/19/16 05:15 06/19/16 11:00 Glucagon 1 mg 1 mg UNSCH PRN OTHER 06/19/16 05:15 (Bumex Inj) 100 ml @ 8 mls/hr CONTINUOUS IV 06/19/16 13:00 06/20/16 23:17 (Protonix Inj) 40 mg DAILY IV 06/20/16 09:00 06/21/16 09:01 Miscellaneous Information 1 Q361D XX 06/19/16 11:45 06/19/16 11:45 (Chlorhexidine 2% Cloth) 3 pack Taper DAILY@04 TOP 06/20/16 04:00 06/16/17 03:59 06/21/16 04:00 (Chlorhexidine 2% Cloth) 3 pack UNSCH PRN TOP 06/19/16 11:45 (Diamox Inj) 500 mg Q8H IV PUSH 06/20/16 06:45 06/21/16 06:01 (Diuril Inj) 500 mg Q12HR IV 06/20/16 09:00 06/21/16 09:00 (Vitamin D3) 2,000 units DAILY PO 06/20/16 12:00 06/21/16 09:00 (Karin Juarez) Physical Exam General Appearance: Comfortable (Karin Juarez) Neck Neck Exam: Neck Supple, Trachea Midline (Karin Juarez) Pulmonary Resp Exam: Clear Bilaterally, Breath Sounds Equal (Karin Juarez) Cardiology CV Exam: Regular, Normal Sinus Rhythm (Karin Juarez) Integumentary Skin Exam: Warm (Karin Juarez) Extremeties Extremities Exam: Pitting Edema Extremeties Remarks Considerable, generalized edema--slightly improved from before (Karin Juarez) Assessment/Plan Problem List: (1) Renal insufficiency Plan: The patient's baseline renal functions are not known. According to ' s recollection, his SCr has improved from what he was in [place]. Records are pending. He was supposed to have establishment visit with Dr. Burns as outpatient coming up this month. Acute renal decline likely related to cardiac decompensation. Continue with diuresis, but decrease Bumex drip to 1mg/hr as his SCr shaji a bit and his UOP in the past 2 days was ~11L Continue to monitor closely. (2) CHF (congestive heart failure) Plan: Pending Echo report. Diurese as ordered (3) Diabetes mellitus Plan: Mgmt as per primary (4) Hypertension Plan: Stable. Monitor (5) CAD (coronary artery disease) Plan: Mgmt as per cardiology (Karin Juarez) Plan The patient has diuresed over 11 L since admission. Creatinine level starting to rise. Would decrease bumetanide 1 mg/h with follow-up renal indices in a.m. The exam, history, and the medical decision-making described in the above note were completed with the assistance of the PA-Tabitha. I reviewed and agree with the findings presented. I attest that I had a [id number] encounter with the patient on the same day, and personally performed and documented my assessment and findings in the medical record. (Evangelista Aguirre MD) Karin Juarez Jun 21, 2016 11:10 Evangelista Aguirre MD Jun 21, 2016 11:17
[2016-06-21 11:15] LABS: INTERNATIONAL NORMALIZED RATIO 3.7 RATIO; PROTHROMBIN TIME - PATIENT 43.8 SEC (9.8-11.6)
[2016-06-21] MEDS: BUMETANIDE INJ 100 ML IV SCH (12:10)
--- NOTE | 2016-06-21 12:11 | PD.CONS ---
Consult Service Palliative Care Consult Requested By Dr. Newby . Primary Care Physician No Primary Care Physician . Reason for Consultation a. To assist with evaluation and management of symptoms including: Dyspnea , anxiety b. To assist medical decision maker(s) with: better understanding of current medical conditions; weighing benefits/burdens of medical treatment options; making medical treatment decisions. . 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 The patient has been declining slowly over the past couple years, with gradually worsening weakness and more dyspnea with exertion. Since a hospitalization in November 2015 with GI bleeding, he has declined more rapidly, and is in his third rehabilitation center prior to this admission. In the past few weeks, the patient has had his AICD replaced in [place], had postprocedure acute kidney injury with creatinine as high as 3.9, and has been weaker, able to ambulate only a few steps before dyspnea intervenes. The patient has had confusion off and on for the past month or 2, but it has been much worse in recent days. In the emergency department, findings included: * Confusion, lethargy * Temp 98.0, pulse 63, respirations 22, blood pressure 116/53, oxygen saturation 99% on supplemental O2 * White count 6.2, hemoglobin 8.9 * Sodium 136, potassium 5.6, creatinine 1.97, GFR 33, albumin 2.8 * Chest x-ray with cardiomegaly The patient was admitted to the hospital, but became more lethargic and nearly obtunded later in the day. He was found to have hypercapnic respiratory failure , with PCO2 in the 70s, and he was placed on BiPAP. Diuresis was initiated with Bumex, and he has reportedly produced more than 11 L of urine since then. His creatinine on the day of this consultation is 1.96, with GFR remaining at 33. The patient seems to be a little more alert overnight and today, and has been able to communicate with his . Because of the patient's multisystem organ dysfunction, worsening heart failure , and consistent worsening decline, Palliative Care was consulted to assist with symptom management, and to engage the patient and family in discussions regarding prognosis, and to help him explore the benefits and burdens of the various treatment options. . Function/Cognitive Trajectory The patient has been declining for several months, and most recently has been unable to only take a few steps without significant dyspnea. He has been weaker. He has been more confused in recent weeks. . Review of Systems ROS Limitations: Altered Mental Status Constitutional: COMPLAINS OF: Fatigue, Weight gain Endocrine: DENIES: Polyuria Eyes: DENIES: Eye inflammation Ears, nose, mouth, throat: DENIES: Epistaxis Respiratory: COMPLAINS OF: Shortness of breath Cardiovascular: COMPLAINS OF: Dyspnea on Exertion Gastrointestinal: DENIES: Constipation, Diarrhea, Vomiting Genitourinary: DENIES: Hematuria Integumentary: DENIES: Rash Hematologic/Lymphatics: DENIES: Bruising Immunologic/Allergic: DENIES: Urticaria Neurologic: DENIES: Localized weakness, Seizures Psychiatric: COMPLAINS OF: Anxiety, Confusion, DENIES: Agitation Past Family Social History Coded Allergies: No Known Allergies (Unverified , 06/18/16) Past Medical History * Heart failure, right-sided more than left sided * Acute kidney injury, chronic kidney disease * Encephalopathy, likely related to multiple factors * Diabetes, reportedly poorly controlled * CAD, history of CABG * GI bleeding, history of ulcer disease November 2015 * AICD, replaced May 18, 2016 * Hypertension * Chronic anemia * Chronic atrial fibrillation * History of obstructive sleep apnea . Past Surgical History PAST SURGICAL HISTORY: AICD 2001, 2015, CABG . Reported Medications Flomax (Tamsulosin HCl) 0.4 Mg Cap 0.4 Mg PO HS Tylenol (Acetaminophen) 325 Mg Cap 325 Mg PO Q6H PRN Warfarin 5 Mg Tab 5 Mg PO DAILY Tramadol (Tramadol HCl) 50 Mg Tab 50 Mg PO Q6H PRN Aldactone (Spironolactone) 25 Mg Tab 25 Mg PO DAILY Bumex (Bumetanide) 1 Mg Tab 1 Mg PO DAILY Bumex (Bumetanide) 2 Mg Tab 2 Mg PO DAILY Flexeril (Cyclobenzaprine HCl) 10 Mg Tab 10 Mg PO TID Gabapentin 300 Mg Cap 300 Mg PO BID Hydralazine (Hydralazine HCl) 10 Mg Tab 10 Mg PO BID Take with a meal Allopurinol 100 Mg Tab 100 Mg PO BID Novolin R Inj (Insulin Human Regular) 1,000 Unit/10 Ml Vial 0 SQ DIRECTED Sliding Scale As Directed. Benzonatate 200 Mg Cap 200 Mg PO TID PRN Duoneb (Ipratropium-Albuterol Neb) 0.5-2.5 Mg/3 Ml Neb 1 Nebule INH Q6HR NEB Coreg (Carvedilol) 6.25 Mg Tab 6.25 Mg PO BID Isosorbide Dinitrate 30 Mg Tab 40 Mg PO BID Novolog Mix 70-30 Inj (Insulin Aspart Prota 70%/Aspart 30%) 1,000 Unit/10 Ml Vial 25 Units SQ DAILYAC Marni-Mame (B-Complex W/ C & Folic Acid) 1 Tab 1 Tab PO DAILY Fish Oil ([place]-3 Fatty Acids) 1,000 Mg Cap Aspirin 81 Mg Chew 81 Mg CHEW DAILY Multivitamin Adult (Multiple Vitamins W/ Minerals) 1 Chw Chw Maalox Advanced Maximum Strength Liq (Xzasvwew-Pweuzujcf-Wfguwcjlqtu Liq) 400- 400-40 Mg/5 Ml Susp 30 Ml PO Q6HR PRN Take between meals or as directed. Shake well. Maximum 60 ml/24 hrs. Miralax Powder (Polyethylene Glycol 3350 Powder) 17 Gm Powd 17 Gm PO HS Mix and dissolve one measuring cap-ful (17 grams) in water or juice. Magnesium Oxide 500 Mg Tab 500 Mg PO BID Ferrous Sulfate 325 Mg Tab 325 Mg PO DAILY Potassium Chloride ER (Potassium Chloride) 10 Meq Cap 10 Meq PO DAILY Atorvastatin (Atorvastatin Calcium) 10 Mg Tab 10 Mg PO HS Ammonium Lactate (Lactic Acid (Ammonium Lactate)) 12% Lotn 1 Applic TOPICAL ONCE Breo Ellipta Inh (Fluticasone/Vilanterol) 100-25 Mcg/Act Inh 1 Puff INH DAILY . Current Medications Medications (Trade) Dose Ordered Sig/Les Route Start Time Stop Time Status Last Admin (NS Flush) 2 ml UNSCH PRN FLUSH 06/19/16 04:15 (NS Flush) 2 ml BID FLUSH 06/19/16 09:00 06/21/16 09:01 (Zofran Inj) 4 mg Q6H PRN IVP 06/19/16 04:15 (Tylenol) 650 mg Q6H PRN PO 06/19/16 04:15 Hold ([employer] 5-325 Mg) 1 tab Q4H PRN PO 06/19/16 04:15 Hold (Zyloprim) 100 mg BID PO 06/19/16 09:00 Hold (Aspirin Chew) 81 mg DAILY CHEW 06/19/16 09:00 06/21/16 09:00 (Lipitor) 10 mg HS PO 06/19/16 21:00 (Coreg) 6.25 mg BID PO 06/19/16 09:00 Hold (Ferrous Sulfate) 325 mg DAILY PO 06/19/16 09:00 Hold (Breo Ellipta 100-25 Inh) 1 puff DAILY INH 06/19/16 09:00 (Apresoline) 10 mg BID PO 06/19/16 09:00 Hold (Aldactone) 25 mg DAILY PO 06/19/16 09:00 Hold (Flomax) 0.4 mg HS PO 06/19/16 21:00 (D50w (Vial) Inj) 25 ml UNSCH PRN IV PUSH 06/19/16 05:15 06/19/16 11:00 Glucagon 1 mg 1 mg UNSCH PRN OTHER 06/19/16 05:15 (Bumex Inj) 100 ml @ 4 mls/hr CONTINUOUS IV 06/19/16 13:00 06/20/16 23:17 (Protonix Inj) 40 mg DAILY IV 06/20/16 09:00 06/21/16 09:01 Miscellaneous Information 1 Q361D XX 06/19/16 11:45 06/19/16 11:45 (Chlorhexidine 2% Cloth) 3 pack Taper DAILY@04 TOP 06/20/16 04:00 06/16/17 03:59 06/21/16 04:00 (Chlorhexidine 2% Cloth) 3 pack UNSCH PRN TOP 06/19/16 11:45 (Diamox Inj) 500 mg Q8H IV PUSH 06/20/16 06:45 06/21/16 06:01 (Diuril Inj) 500 mg Q12HR IV 06/20/16 09:00 06/21/16 09:00 (Vitamin D3) 2,000 units DAILY PO 06/20/16 12:00 06/21/16 09:00 Family History The patient's father, sister, and brother all of malignancies. The patient 's mother of an acute [place]. There is a family history of diabetes. . Substance Use Tobacco: None. Alcohol: None. Prescription med abuse: None. Illicits: None. . 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 He has lived in [place] the past couple years, and moved with his in their camper to this area within the past month. The patient has been twice, currently for nearly 8 years to [place]. He has 3 children, Tamika in [place], and sons Glen and Rigoberto in [facility]. 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 . Spiritual/Cultural Factors The patient's reports that spirituality has been very important to the patient the past few years. They were members of the [employer] in [place], and he was an active participant there. Their business administration program chair from that [employer] drove here to see the patient yesterday. They would like computer information science professor visits. . Living Will: Never completed Health Care Surrogate: Copy in medical record Durable Power of Terrazzo Finisher Helper: Never completed Health Care Surrogate(s): The unsigned HCS form names is primary and son Glen has secondary . Today's verbally stated goals: Although the patient has been somewhat confused, he was alert enough to engage in limited conversation at the time of this consultation. When questioned specifically about resuscitation, intubation, mechanical ventilation, and dialysis, he said that he would not want any of those processes or procedures done to him when he declines further. . Family/friends goals: The patient's wants to continue the care that is being provided now, hoping that the patient will be able to come off of the BiPAP and perhaps have some more time with mental clarity. She notes that the patient has told her that quality of life for him would be being able to be at home and being ambulatory. The patient's is ready to transition to hospice care if the patient's suffering increases or if it appears that his quality of life will not be what he would want. . Ethical and Legal Issues The patient has had confusion in recent weeks and days, and likely does not have capacity for decision-making at this time. He is and has 3 children. By [place] statutes, the patient's would be the primary decision maker. Coincidentally, he completed a health care proxy form naming his as primary decision maker and his son Glen as secondary, but he did not sign that form. A copy is placed in the chart. There are no ethical issues that would impact his care or decision-making at this time. . Physical Exam Vital Signs Date Time Temp Pulse Resp B/P Pulse Ox O2 Delivery O2 Flow Rate FiO2 06/21/16 11:16 97.8 59 17 145/51 95 06/21/16 11:14 59 06/21/16 11:13 95 Nasal Cannula 3.00 06/21/16 08:42 97 40 06/21/16 07:37 98.0 59 19 135/49 97 126/49 06/21/16 07:36 59 06/21/16 07:35 97 Nasal Cannula 3.00 06/21/16 07:13 95 Nasal Cannula 3.00 06/21/16 04:33 95 Nasal Cannula 3.00 06/21/16 04:00 99 35 06/21/16 03:07 98.0 59 18 158/67 99 134/60 06/21/16 03:07 99 Bi-Pap 40 06/21/16 03:07 59 06/21/16 03:07 40 06/21/16 01:13 99 40 06/20/16 23:07 99 Bi-Pap 4.00 40 06/20/16 23:07 59 06/20/16 23:07 40 06/20/16 23:07 98.2 59 15 116/54 99 120/46 06/20/16 21:20 99 40 06/20/16 21:00 40 06/20/16 20:20 98 Nasal Cannula 4.00 06/20/16 19:22 95 Nasal Cannula 4.00 06/20/16 19:22 98.0 59 21 132/51 95 127/49 06/20/16 19:00 59 06/20/16 16:00 100 Bi-Pap 45 06/20/16 16:00 45 06/20/16 16:00 59 06/20/16 15:59 97.9 59 22 125/50 99 06/20/16 11:50 100 Bi-Pap 45 06/20/16 11:50 45 06/20/16 11:49 59 06/20/16 11:47 98.0 59 20 99 134/49 06/20/16 06/21/16 19:00 07:00 Intake Total 456 ml 250 ml Output Total 3120 ml 2685 ml Balance -2664 ml -2435 ml Intake Oral 120 ml IV Total 336 ml 250 ml Output Urine Total 3120 ml 2685 ml # Bowel Movements 0 Exam CONSTITUTIONAL/GENERAL: This is an edematous and obese patient, in no apparent distress. BiPAP is in place initially. TUBES/LINES/DRAINS: BiPAP, central venous access, Mendiola catheter, SCDs SKIN: No jaundice, rashes, or lesions. Ecchymoses on upper extremities. No wounds seen anteriorly. Skin temperature appropriate. Not diaphoretic. HEAD: Atraumatic. Normocephalic. EYES: Pupils equal and round and reactive. Extraocular motions intact. No scleral icterus. No injection or drainage. Fundi not examined. ENT: Hearing grossly normal. Nose without bleeding or purulent drainage. NECK: Trachea midline. Supple, nontender. No palpable thyroid enlargement or nodularity. CARDIOVASCULAR: Irregularly irregular rhythm without murmurs, gallops, or rubs. No JVD. Peripheral pulses symmetric. RESPIRATORY/CHEST: Symmetric, unlabored respirations. Markedly diminished breath sounds bilateral, a few rhonchi noted GASTROINTESTINAL: Abdomen soft, non-tender, but moderately distended. No hepato- splenomegaly, or palpable masses. No guarding. Bowel sounds present. GENITOURINARY: Without palpable bladder distension. Mendiola catheter in place. MUSCULOSKELETAL: Extremities without clubbing, cyanosis, but 3+ edema is present in the arms and legs. No joint tenderness or effusion noted. No calf tenderness. No mottling or clubbing. LYMPHATICS: No palpable cervical or supraclavicular adenopathy. NEUROLOGICAL: Awake and mildly lethargic. Motor and sensory grossly within normal limits, with global weakness. Follows commands. Some confusion remains. Moves all extremities. PSYCHIATRIC: No obvious anxiety/depression. no apparent hallucinations or other psychotic thought process. . Diagnostic Tests Laboratory Laboratory Tests Test 06/19/16 06/19/16 06/19/16 06/19/16 00:02 02:35 07:50 09:31 White Blood Count 6.2 TH/MM3 (4.0-11.0) Red Blood Count 3.04 MIL/MM3 (4.50-5.90) Hemoglobin 8.9 GM/DL (13.0-17.0) Hematocrit 28.0 % (39.0-51.0) Mean Corpuscular Volume 91.9 FL (80.0-100.0) Mean Corpuscular Hemoglobin 29.2 PG (27.0-34.0) Mean Corpuscular Hemoglobin 31.7 % Concent (32.0-36.0) Red Cell Distribution Width 18.3 % (11.6-17.2) Platelet Count 156 TH/MM3 (150-450) Mean Platelet Volume 8.9 FL (7.0-11.0) Neutrophils (%) (Auto) 73.0 % (16.0-70.0) Lymphocytes (%) (Auto) 13.3 % (9.0-44.0) Monocytes (%) (Auto) 11.2 % (0.0-8.0) Eosinophils (%) (Auto) 1.8 % (0.0-4.0) Basophils (%) (Auto) 0.7 % (0.0-2.0) Neutrophils # (Auto) 4.5 TH/MM3 (1.8-7.7) Lymphocytes # (Auto) 0.8 TH/MM3 (1.0-4.8) Monocytes # (Auto) 0.7 TH/MM3 (0-0.9) Eosinophils # (Auto) 0.1 TH/MM3 (0-0.4) Basophils # (Auto) 0.0 TH/MM3 (0-0.2) CBC Comment DIFF FINAL Differential Comment Prothrombin Time 41.8 SEC 41.3 SEC (9.8-11.6) (9.8-11.6) Prothromb Time International 3.6 RATIO 3.5 RATIO Ratio Activated Partial 40.9 SEC 40.4 SEC Thromboplast Time (24.3-30.1) (24.3-30.1) Sodium Level 136 MEQ/L (136-145) Potassium Level 5.6 MEQ/L (3.5-5.1) Chloride Level 97 MEQ/L (98-107) Carbon Dioxide Level 33.9 MEQ/L (21.0-32.0) Anion Gap 5 MEQ/L (5-15) Blood Urea Nitrogen 70 MG/DL (7-18) Creatinine 1.97 MG/DL (0.60-1.30) Estimat Glomerular Filtration 33 ML/MIN (>89) Rate Random Glucose 153 MG/DL (74-106) Calcium Level 7.9 MG/DL (8.5-10.1) Total Bilirubin 0.7 MG/DL (0.2-1.0) Direct Bilirubin 0.2 MG/DL (0.0-0.2) Indirect Bilirubin 0.5 MG/DL (0.0-0.8) Aspartate Amino Transf 48 U/L (15-37) (AST/SGOT) Alanine Aminotransferase 23 U/L (12-78) (ALT/SGPT) Alkaline Phosphatase 174 U/L (45-117) Troponin I 0.03 NG/ML (0.02-0.05) B-Type Natriuretic Peptide 124 PG/ML (0-100) Total Protein 6.7 GM/DL (6.4-8.2) Albumin 2.8 GM/DL (3.4-5.0) Blood Gas Puncture Site RT RADIAL RT RADIAL Blood Gas Patient Temperature 98.6 98.6 Blood Gas HCO3 36 mmol/L 36 mmol/L (22-26) (22-26) Blood Gas Base Excess 9.9 mmol/L 9.4 mmol/L (-2-2) (-2-2) Blood Gas Oxygen Saturation 93 % (90-100) 93 % (90-100) Arterial Blood pH 7.33 7.30 (7.380-7.420) (7.380-7.420) Arterial Blood Partial 71 mmHg (38-42) 75 mmHg (38-42) Pressure CO2 Arterial Blood Partial 91 mmHG 99 mmHG Pressure O2 (61-120) (61-120) Arterial Blood Oxygen Content 11.8 Vol % 12.1 Vol % (12.0-20.0) (12.0-20.0) Arterial Blood 2.9 % (0-4) 2.8 % (0-4) Carboxyhemoglobin Arterial Blood Methemoglobin 1.8 % (0-2) 1.8 % (0-2) Blood Gas Hemoglobin 9.0 G/DL 9.2 G/DL (12.0-16.0) (12.0-16.0) Oxygen Delivery Device NASAL CANNULA VENTILATOR Blood Gas Liter Flow 1 L/M Blood Gas Ventilator Setting NPPV 12PS/5PEEP Blood Gas Inspired Oxygen 28 % Test 06/19/16 06/19/16 06/19/16 06/19/16 10:42 15:38 19:00 20:51 White Blood Count 7.6 TH/MM3 (4.0-11.0) Red Blood Count 3.22 MIL/MM3 (4.50-5.90) Hemoglobin 9.4 GM/DL (13.0-17.0) Hematocrit 29.2 % (39.0-51.0) Mean Corpuscular Volume 90.7 FL (80.0-100.0) Mean Corpuscular Hemoglobin 29.1 PG (27.0-34.0) Mean Corpuscular Hemoglobin 32.1 % Concent (32.0-36.0) Red Cell Distribution Width 17.9 % (11.6-17.2) Platelet Count 147 TH/MM3 (150-450) Mean Platelet Volume 8.0 FL (7.0-11.0) Neutrophils (%) (Auto) 80.3 % (16.0-70.0) Lymphocytes (%) (Auto) 10.2 % (9.0-44.0) Monocytes (%) (Auto) 8.3 % (0.0-8.0) Eosinophils (%) (Auto) 0.8 % (0.0-4.0) Basophils (%) (Auto) 0.4 % (0.0-2.0) Neutrophils # (Auto) 6.1 TH/MM3 (1.8-7.7) Lymphocytes # (Auto) 0.8 TH/MM3 (1.0-4.8) Monocytes # (Auto) 0.6 TH/MM3 (0-0.9) Eosinophils # (Auto) 0.1 TH/MM3 (0-0.4) Basophils # (Auto) 0.0 TH/MM3 (0-0.2) CBC Comment DIFF FINAL Differential Comment Prothrombin Time 35.9 SEC (9.8-11.6) Prothromb Time International 3.1 RATIO Ratio Sodium Level 140 MEQ/L 142 MEQ/L (136-145) (136-145) Potassium Level 4.6 MEQ/L 4.8 MEQ/L (3.5-5.1) (3.5-5.1) Chloride Level 100 MEQ/L 99 MEQ/L (98-107) (98-107) Carbon Dioxide Level 35.7 MEQ/L 37.5 MEQ/L (21.0-32.0) (21.0-32.0) Anion Gap 4 MEQ/L (5-15) 6 MEQ/L (5-15) Blood Urea Nitrogen 72 MG/DL (7-18) 70 MG/DL (7-18) Creatinine 1.85 MG/DL 1.82 MG/DL (0.60-1.30) (0.60-1.30) Estimat Glomerular Filtration 36 ML/MIN (>89) 36 ML/MIN (>89) Rate Random Glucose 58 MG/DL 70 MG/DL (74-106) (74-106) Calcium Level 8.6 MG/DL 8.5 MG/DL (8.5-10.1) (8.5-10.1) Magnesium Level 3.0 MG/DL 2.9 MG/DL (1.5-2.5) (1.5-2.5) Total Creatine Kinase 82 U/L (39-308) Troponin I 0.03 NG/ML (0.02-0.05) Blood Gas Puncture Site RT RADIAL Blood Gas Patient Temperature 98.6 Blood Gas HCO3 35 mmol/L (22-26) Blood Gas Base Excess 9.6 mmol/L (-2-2) Blood Gas Oxygen Saturation 96 % (90-100) Arterial Blood pH 7.35 (7.380-7.420) Arterial Blood Partial 66 mmHg (38-42) Pressure CO2 Arterial Blood Partial 235 mmHG Pressure O2 (61-120) Arterial Blood Oxygen Content 12.9 Vol % (12.0-20.0) Arterial Blood 2.8 % (0-4) Carboxyhemoglobin Arterial Blood Methemoglobin 1.5 % (0-2) Blood Gas Hemoglobin 9.1 G/DL (12.0-16.0) Oxygen Delivery Device VENTILATOR Blood Gas Ventilator Setting NPPV 16/12PS/5PEEP Blood Gas Inspired Oxygen 60 % Ammonia 37 MCMOL/L (11-32) Parathyroid Hormone (Intact) 124.3 PG/ML (12.4-76.8) Total Protein 6.7 GM/DL (6.0-7.6) Albumin 3.52 GM/DL (3.50-5.00) Albumin/Globulin Ratio 1.11 (1.39-2.23) Wahyk-4-Utoxrdbgu 0.32 GM/DL (0.11-0.29) Vlhzc-7-Pyprjatxx 0.80 GM/DL (0.22-1.00) Beta Globulins 0.76 GM/DL (0.53-1.03) Gamma Globulins 1.30 GM/DL (0.50-1.39) 25-Hydroxy Vitamin D Total 26.7 ng/ML (30-100) Immunoglobulin G Total 890 MG/DL (680-1670) Immunoglobulin A 651 MG/DL (103-568) Immunoglobulin [place]/Lambda 2.17 Ratio (1.57-3.93) [place] Light Chain Analysis 351 MG/DL (170-370) Lambda Light Chain Analysis 162 MG/DL (90-210) Urine Color LIGHT-YELLOW (YELLW/STRAW) Urine Turbidity HAZY (CLEAR) Urine pH 7.5 (5.0-8.5) Urine Specific Metcalf 1.006 (1.002-1.035) Urine Protein NEG mg/dL (NEG-TRACE) Urine Glucose (UA) NEG mg/dL (NEG) Urine Ketones NEG mg/dL (NEG) Urine Occult Blood MOD (NEG) Urine Nitrite NEG (NEG) Urine Bilirubin NEG (NEG) Urine Urobilinogen LESS THAN 2.0 MG/DL (LESS THAN 2.0) Urine Leukocyte Esterase LARGE (NEG) Urine RBC 93 /hpf (0-3) Urine WBC 39 /hpf (0-5) Urine Bacteria RARE /hpf (NONE) Urine Hyaline Casts 1 /lpf (RARE) Microscopic Urinalysis Comment CULTURE INDICATED Urine Random Creatinine LESS THAN 13 MG/DL (27-300) Urine Random Total Protein 7 MG/DL (0-11.8) Urine Protein/Creatinine Ratio 0.00 (0.00-0.14) Test 06/20/16 06/20/16 06/20/16 06/21/16 06:10 06:45 07:27 04:50 White Blood Count 6.4 TH/MM3 6.4 TH/MM3 6.2 TH/MM3 (4.0-11.0) (4.0-11.0) (4.0-11.0) Red Blood Count 3.05 MIL/MM3 3.07 MIL/MM3 3.09 MIL/MM3 (4.50-5.90) (4.50-5.90) (4.50-5.90) Hemoglobin 8.9 GM/DL 8.9 GM/DL 9.2 GM/DL (13.0-17.0) (13.0-17.0) (13.0-17.0) Hematocrit 28.3 % 28.2 % 28.5 % (39.0-51.0) (39.0-51.0) (39.0-51.0) Mean Corpuscular Volume 92.8 FL 91.7 FL 92.2 FL (80.0-100.0) (80.0-100.0) (80.0-100.0) Mean Corpuscular Hemoglobin 29.3 PG 28.8 PG 29.9 PG (27.0-34.0) (27.0-34.0) (27.0-34.0) Mean Corpuscular Hemoglobin 31.6 % 31.4 % 32.4 % Concent (32.0-36.0) (32.0-36.0) (32.0-36.0) Red Cell Distribution Width 18.1 % 18.0 % 17.8 % (11.6-17.2) (11.6-17.2) (11.6-17.2) Platelet Count 153 TH/MM3 157 TH/MM3 158 TH/MM3 (150-450) (150-450) (150-450) Mean Platelet Volume 8.5 FL 8.4 FL 7.5 FL (7.0-11.0) (7.0-11.0) (7.0-11.0) Prothrombin Time 33.1 SEC (9.8-11.6) Prothromb Time International 2.9 RATIO Ratio Sodium Level 142 MEQ/L 143 MEQ/L 143 MEQ/L (136-145) (136-145) (136-145) Potassium Level 4.1 MEQ/L 3.9 MEQ/L 3.4 MEQ/L (3.5-5.1) (3.5-5.1) (3.5-5.1) Chloride Level 97 MEQ/L 96 MEQ/L 93 MEQ/L (98-107) (98-107) (98-107) Carbon Dioxide Level 37.6 MEQ/L 40.2 MEQ/L 39.8 MEQ/L (21.0-32.0) (21.0-32.0) (21.0-32.0) Anion Gap 7 MEQ/L (5-15) 7 MEQ/L (5-15) 10 MEQ/L (5-15) Blood Urea Nitrogen 70 MG/DL (7-18) 69 MG/DL (7-18) 76 MG/DL (7-18) Creatinine 1.82 MG/DL 1.79 MG/DL 1.96 MG/DL (0.60-1.30) (0.60-1.30) (0.60-1.30) Estimat Glomerular Filtration 36 ML/MIN (>89) 37 ML/MIN (>89) 33 ML/MIN (>89) Rate Random Glucose 81 MG/DL 104 MG/DL 168 MG/DL (74-106) (74-106) (74-106) Calcium Level 8.7 MG/DL 8.7 MG/DL 8.8 MG/DL (8.5-10.1) (8.5-10.1) (8.5-10.1) Total Bilirubin 1.0 MG/DL 1.0 MG/DL (0.2-1.0) (0.2-1.0) Direct Bilirubin 0.4 MG/DL 0.5 MG/DL (0.0-0.2) (0.0-0.2) Indirect Bilirubin 0.6 MG/DL 0.5 MG/DL (0.0-0.8) (0.0-0.8) Aspartate Amino Transf 20 U/L (15-37) 16 U/L (15-37) (AST/SGOT) Alanine Aminotransferase 20 U/L (12-78) 19 U/L (12-78) (ALT/SGPT) Alkaline Phosphatase 162 U/L 157 U/L (45-117) (45-117) Total Protein 6.5 GM/DL 6.8 GM/DL (6.4-8.2) (6.4-8.2) Albumin 2.8 GM/DL 3.0 GM/DL (3.4-5.0) (3.4-5.0) Blood Gas Puncture Site RT RADIAL Blood Gas Patient Temperature 98.6 Blood Gas HCO3 37 mmol/L (22-26) Blood Gas Base Excess 11.2 mmol/L (-2-2) Blood Gas Oxygen Saturation 96 % (90-100) Arterial Blood pH 7.36 (7.380-7.420) Arterial Blood Partial 67 mmHg (38-42) Pressure CO2 Arterial Blood Partial 130 mmHg Pressure O2 (61-120) Arterial Blood Oxygen Content 13.3 Vol % (12.0-20.0) Arterial Blood 2.4 % (0-4) Carboxyhemoglobin Arterial Blood Methemoglobin 0.9 % (0-2) Blood Gas Hemoglobin 9.7 G/DL (12.0-16.0) Oxygen Delivery Device VENTILATOR Blood Gas Ventilator Setting NPPV/SIMV Blood Gas Inspired Oxygen 45 % Neutrophils (%) (Auto) 76.6 % (16.0-70.0) Lymphocytes (%) (Auto) 11.4 % (9.0-44.0) Monocytes (%) (Auto) 10.3 % (0.0-8.0) Eosinophils (%) (Auto) 0.8 % (0.0-4.0) Basophils (%) (Auto) 0.9 % (0.0-2.0) Neutrophils # (Auto) 4.9 TH/MM3 (1.8-7.7) Lymphocytes # (Auto) 0.7 TH/MM3 (1.0-4.8) Monocytes # (Auto) 0.7 TH/MM3 (0-0.9) Eosinophils # (Auto) 0.1 TH/MM3 (0-0.4) Basophils # (Auto) 0.1 TH/MM3 (0-0.2) CBC Comment DIFF FINAL Differential Comment Test 06/21/16 10:58 Prothrombin Time 43.8 SEC (9.8-11.6) Prothromb Time International 3.7 RATIO Ratio Ammonia 46 MCMOL/L (11-32) Result Diagram: 06/21/16 0450 06/21/16 0450 Microbiology Microbiology Date/Time Procedure Status Source Growth 06/19/16 20:51 Urine Culture - Final Complete Urine Clean Catch NO GROWTH IN 48 HOURS. Imaging Last Impressions Chest X-Ray 06/20/16 0600 Signed Impressions: Service Date/Time: Monday, June 20, 2016 03:24 - CONCLUSION: Interval developmental of patchy consolidation left lower lung. Rustam Hernández MD Renal Ultrasound 06/19/16 0000 Signed Impressions: Service Date/Time: Sunday, June 19, 2016 17:15 - CONCLUSION: No evidence of obstructive uropathy, hydronephrosis. Increased echogenicity of the renal cortex suggesting parenchymal disease. Mendiola catheter in place in the urinary bladder Arsalan Stone, MD Procedures BiPAP . Patient/Family Conference Present at Family Conference: Patient's Gris, patient's daughter Tamika by telephone, and [employer] med student Mildred Sanches . Family Conference Time (mins): 61 Family Conference Location: Consult Room, Telephone Issues Discussed: * Palliative care role, purpose, approach * Hospice care role, purpose, approach * Additional medical, psychosocial, and spiritual history * Patients general health, functional status, and cognitive changes in the months leading up to the current hospitalization * Patient/family understanding of the current medical problems * Patient/family understanding of prognosis * Patients goals of care as best understood from advance directives and/or conversations and/or values * Current medical treatment options and benefits/burdens of those options * Likely scenarios comparing ongoing aggressive care with a transition to comfort measures only * Questions answered to the best of my ability * Palliative care contact information provided Assessment and Plan Disease Oriented Problem List: (1) heart failure, right-sided more than left sided (2) acute kidney injury, chronic kidney disease (3) encephalopathy, likely related to multiple factors (4) CAD, history of CABG (5) GI bleeding, history of ulcer disease November 2015 (6) AICD, replaced 05/18/16 (7) chronic anemia (8) chronic atrial fibrillation (9) hypertension (10) diabetes, reportedly poorly controlled (11) history of obstructive sleep apnea Symptom Scale: (1) dyspnea 0-10 Scale: 5 (2) anxiety 0-10 Scale: 3 (intermittent, associated with dyspnea) Pertinent Non-Medical Issues Psychosocial: , retired, 3 children. Spiritual: The patient's reports that spirituality has been very important to the patient the past few years. They were members of the [employer] in [place], and he was an active participant there. Their business administration program chair from that [employer] drove here to see the patient yesterday. They would like computer information science professor visits. Legal: The patient has had confusion in recent weeks and days, and likely does not have capacity for decision-making at this time. He is and has 3 children. By [place] statutes, the patient's would be the primary decision maker. Coincidentally, he completed a health care proxy form naming his as primary decision maker and his son Glen as secondary, but he did not sign that form. A copy is placed in the chart. Ethical issues impacting care: None . Important Contacts : Gris [phone] Daughter: Tamika Hay [phone] . Prognosis The patient's overall prognosis is very poor, as he has end-stage heart disease/ failure and involvement of multiple organ systems. Is likely outlook is weeks or perhaps months, and certainly he is appropriate for hospice services when the goals transition to comfort only. . Code Status: No Code Plan * DO NOT RESUSCITATE * DECISION-MAKING: The patient has had confusion in recent weeks and days, and likely does not have capacity for decision-making at this time. He is and has 3 children. By [place] statutes, the patient's would be the primary decision maker. Coincidentally, he completed a health care proxy form naming his as primary decision maker and his son Glen as secondary, but he did not sign that form. A copy is placed in the chart. * SYMPTOMS: The patient's dyspnea has been managed with BiPAP. We will had some lorazepam to his orders, as the patient seems to have significant anxiety intermittently, particularly when the dyspnea is worse. * GOALS: The patient's wants to continue the current level of care, and DOES NOT WANT TO ESCALATE care further. Specifically, she would not want intubation, mechanical ventilation, pressor drugs, or dialysis. The patient confirmed these goals 1. The patient's will likely want to transition to hospice care if his symptoms worsen, if organ systems fail more, or if she sees a future quality of life that will be unacceptable to her in the patient. * Human Resources Supervisor notified to visit the patient/. * Palliative Care will continue to follow the patient during this hospitalization. . Time Spent Total Floor Time (mins): 88 Face to Face Time (mins): 69 >50% Counseling/Coord of Care: Yes Thank you for the opportunity to participate in the care of Mr. Hay. Attestation To help prompt me to consider important information that might be impacting today's encounter and assessment, information from prior notes written by myself or my colleagues may have been "brought forward" into today's note. My signature on this note, however, is an attestation that I personally performed the exam, history, and/or decision-making noted today, and, unless otherwise indicated, the interactions with patient, family, and staff as well as the review of records all occurred today. I also attest that the listed assessment and stated plan reflect my best clinical judgment today based on the combination of historical information, prior notes, and today's exam/ interactions. When time spent is documented, it refers only to time spent today by the signer, or if indicated, combined time spent today by collaborating physician/nurse practitioner. Suly Roy MD Jun 21, 2016 12:11
[2016-06-21] MEDS ORDERED: POTASSIUM PHOSPHATE MONOBASIC 500 MG TAB PO/TUBE PRN (12:30)
[2016-06-21] MEDS ORDERED: MAGNESIUM SULFATE INJ 2 GM in SODIUM CHLORIDE 0.9% INJ 96 ML IV PRN (12:30)
[2016-06-21] MEDS ORDERED: POTASSIUM CHLOR 20 MEQ PREMIX 100 ML IV PRN ×2 (12:30)
[2016-06-21] MEDS ORDERED: POTASSIUM PHOSPHATE MONOBASIC 500 MG TAB PO PRN (12:30)
[2016-06-21] MEDS ORDERED: POTASSIUM PHOSPHATE INJ 30 MMOL in SODIUM CHLOR 0.9% 250 ML INJ 250 ML IV PRN (12:30)
[2016-06-21] MEDS ORDERED: SODIUM PHOSPHATE INJ 30 MMOL in SODIUM CHLOR 0.9% 250 ML INJ 240 ML IV PRN (12:30)
[2016-06-21] MEDS ORDERED: POTASSIUM CHLOR 40 MEQ PREMIX 100 ML IV PRN ×2 (12:30)
[2016-06-21] MEDS ORDERED: MAGNESIUM OXIDE 400 MG TAB PO PRN (12:30)
[2016-06-21] MEDS ORDERED: POTASSIUM CL 40 MEQ/30 ML LIQ UDC PO/TUBE PRN ×2 (12:30)
[2016-06-21] MEDS ORDERED: MAGNESIUM SULFATE INJ 4 GM in SODIUM CHLORIDE 0.9% INJ 92 ML IV PRN (12:30)
[2016-06-21] MEDS: ATORVASTATIN 10 MG TAB PO SCH (20:11)
[2016-06-21] MEDS: TAMSULOSIN HCL 0.4 MG CAP PO SCH (20:11)
[2016-06-21] MEDS ORDERED: CHLORHEXIDINE GLUCONATE 2 % 1 PACK (2 CLOTHS)(extra cloths) TOP PRN (21:30)
[2016-06-21] MEDS: MORPHINE SULFATE 4 MG/ML INJ IV PUSH PRN (23:30)
[2016-06-22] VITALS (7 sets, daily range): BP systolic 109–146; BP diastolic 43–78; PULSE 60–96; RESP 16–28; TEMP 97.6–98.4; O2SAT 96–100
[2016-06-22] MEDS: LORazepam 2 MG/ML VIAL IV PUSH PRN ×2 (02:04→14:16)
[2016-06-22] MEDS: BUMETANIDE INJ 100 ML IV SCH (02:06)
[2016-06-22] MEDS ORDERED: CHLORHEXIDINE GLUCONATE 2 % 1 PACK (2 CLOTHS)(taper/protocol) TOP SCH (04:00)
[2016-06-22] MEDS: CHLORHEXIDINE GLUCONATE 2 % 1 PACK (2 CLOTHS) TOP SCH (04:00)
[2016-06-22] MEDS: RESP: ALBUTEROL 2.5 MG/IPRATROPIUM 0.5 MG NEB (SCH) INH ×2 (04:33→09:10)
[2016-06-22 05:34] LABS: INTERNATIONAL NORMALIZED RATIO 3.9 RATIO; PROTHROMBIN TIME - PATIENT 45.8 SEC (9.8-11.6)
[2016-06-22 05:39] LABS: HEMATOCRIT 28.6 % (39.0-51.0); MEAN CELL VOLUME 91.4 FL (80.0-100.0); MEAN CORPUSCULAR HEMOGLOBIN 28.9 PG (27.0-34.0); MEAN CORPUSCULAR HGB CONC 31.6 % (32.0-36.0); PLATELET COUNT 153 TH/MM3 (150-450); RED BLOOD COUNT 3.12 MIL/MM3 (4.50-5.90); RED CELL DISTRIBUTION WIDTH 17.9 % (11.6-17.2); REVIEW FLAG FINAL; WHITE BLOOD COUNT 6.2 TH/MM3 (4.0-11.0)
[2016-06-22 06:18] LABS: BICARBONATE 44.5 MEQ/L (21.0-32.0); INDIRECT BILIRUBIN 0.7 MG/DL (0.0-0.8); MAGNESIUM 2.4 MG/DL (1.5-2.5); TOTAL BILIRUBIN ADULT 1.1 MG/DL (0.2-1.0)
[2016-06-22] MEDS: INSULIN ASPART SUPPLEMENTAL SCALE SQ SCH ×2 (06:23→11:00)
[2016-06-22 06:36] LABS: POTASSIUM 2.8 MEQ/L (3.5-5.1)
[2016-06-22] MEDS: PANTOPRAZOLE SODIUM 40 MG VIAL IV SCH (08:06)
[2016-06-22] MEDS: ASPIRIN 81 MG CHEW TAB CHEW SCH (08:09)
[2016-06-22] MEDS: SODIUM CHLORIDE 0.9% FLUSH 5 ML FLUSH FLUSH SCH (08:09)
[2016-06-22] MEDS: CHOLECALCIFEROL (VIT D3) 1000 UNIT TAB PO SCH (08:10)
[2016-06-22] MEDS: CHLOROTHIAZIDE SOD 500 MG VIAL IV SCH (08:11)
--- NOTE | 2016-06-22 08:20 | HHI.PR ---
Subjective Remarks pt is on CPAP, Transferred to ICU. very confused Objective Vital Signs Date Time Temp Pulse Resp B/P Pulse Ox O2 Delivery O2 Flow Rate FiO2 06/22/16 05:00 100 35 06/22/16 04:00 98.4 60 28 109/43 96 06/22/16 04:00 60 06/22/16 04:00 95 Nasal Cannula 3.00 06/22/16 00:45 100 35 06/22/16 00:00 100 Bi-Pap 06/22/16 00:00 98.4 60 21 133/53 100 06/22/16 00:00 60 06/21/16 23:35 18 06/21/16 23:00 98 Bi-Pap 06/21/16 23:00 98.7 63 18 119/60 98 112/55 06/21/16 23:00 63 06/21/16 22:07 100 Nasal Cannula 4.00 06/21/16 22:07 100 40 06/21/16 21:20 98.4 60 18 129/64 99 129/50 06/21/16 19:21 Nasal Cannula 3.00 06/21/16 19:21 97.7 59 18 145/58 94 142/65 06/21/16 19:00 59 06/21/16 15:04 97 Nasal Cannula 3.00 06/21/16 15:03 59 06/21/16 15:02 98.0 59 18 140/53 97 06/21/16 11:16 97.8 59 17 145/51 95 06/21/16 11:14 59 06/21/16 11:13 95 Nasal Cannula 3.00 06/21/16 08:42 97 40 I/O 06/21/16 06/21/16 06/21/16 06/22/16 06/22/16 06/22/16 07:00 15:00 23:00 07:00 15:00 23:00 Intake Total 250 ml 358 ml 24 ml Output Total 2685 ml 5950 ml 2000 ml Balance -2435 ml -5592 ml -1976 ml Intake Oral 150 ml 0 ml IV Total 250 ml 208 ml 24 ml Output Urine Total 2685 ml 5950 ml 2000 ml # Bowel Movements 0 0 VSS CHEST: rales B/L HEART: S1,S2,RRR ABD distended Ext: edema Result Diagram: 06/22/16 0350 06/22/16 0350 Assessment and Plan Assessment and Plan pt is diuresing ... renal function is getting worse. INR therapeutic. pt is DNR. recommend hospice.. conservative management. I will follow as needed. Livan Colin MD Jun 22, 2016 08:20
[2016-06-22] MEDS: FLUTICASONE 100 MCG/VILANTEROL 25 MCG INHALER INH SCH (08:44)
--- NOTE | 2016-06-22 10:06 | EC ---
Study Study Date:06/19/2016 STUDY CONCLUSIONS SUMMARY - Left ventricle: The cavity size was normal. Wall thickness was normal. Systolic function was mildly reduced. The estimated ejection fraction was in the range of 45% to 50%. Regional wall motion abnormalities cannot be excluded. - Mitral valve: Mildly calcified annulus. Mildly thickened leaflets, . Mild regurgitation. - Left atrium: The atrium was mildly dilated. - Tricuspid valve: Mild regurgitation. - Pulmonic valve: Mild regurgitation. - Pulmonary arteries: Systolic pressure was mildly increased. If LV function is below 40, please consider prescribing an ACEI or ARB or document rationale for non-use. PROCEDURE DATA STUDY STATUS: Elective. Procedure: Transthoracic echocardiography. Image quality was suboptimal. Scanning was performed from the parasternal, apical, and subcostal acoustic windows. Study completion: The patient tolerated the procedure well. Transthoracic echocardiography. M-mode, complete 2D, complete spectral Doppler, and color Doppler. Patient status: Inpatient. CARDIAC ANATOMY LEFT VENTRICLE: The cavity size was normal. Wall thickness was normal. Systolic function was mildly reduced. The estimated ejection fraction was in the range of 45% to 50%. Regional wall motion abnormalities cannot be excluded. AORTIC VALVE: Trileaflet; mildly thickened, mildly calcified leaflets. Doppler: Transvalvular velocity was within the normal range. There was no stenosis. No regurgitation. AORTA: Aortic root: The aortic root was normal in size. MITRAL VALVE: Mildly calcified annulus. Mildly thickened leaflets, . Doppler: Transvalvular velocity was within the normal range. There was no evidence for stenosis. Mild regurgitation. LEFT ATRIUM: The atrium was mildly dilated. RIGHT VENTRICLE: Poorly visualized. PULMONIC VALVE: Poorly visualized. Doppler: Transvalvular velocity was within the normal range. There was no evidence for stenosis. Mild regurgitation. TRICUSPID VALVE: Poorly visualized. Doppler: Transvalvular velocity was within the normal range. Mild regurgitation. PULMONARY ARTERY: The main pulmonary artery was normal-sized. Systolic pressure was mildly increased. RIGHT ATRIUM: Poorly visualized. PERICARDIUM: There was no pericardial effusion. SYSTEMIC VEINS: Inferior vena cava: The vessel was normal in size. Prepared and signed by Robbie Power [id number]
[2016-06-22] MEDS: MORPHINE SULFATE 4 MG/ML INJ IV PUSH PRN ×2 (10:42→14:17)
--- NOTE | 2016-06-22 11:01 | HHI.NPPN ---
Subjective History of Present Illness The patient is a 75 yo [place] male who was brought into the ED today with SOB, fluid overload from [facility]. and 2 children are present in the exam room and history is obtained from his family as the patient is currently obtunded. He apparently was recently in [facility] (May 2016) for cardiac issues and had an exchange of his cardiac pacer to include 2 leads versus just one which he had since 2001. After the procedure, his says that he had kidney troubles and his "numbers went to 3.7". She refers that he was "placed on a drip and his number improved to 2.6". He was discharged from that facility and has been at [facility] for the past 2 weeks. Since his discharge from [facility], he has had progressive edema and reported a 70 lb weight gain in the past 2 weeks. He does take outpatient diuretics, but the dose is uncertain. He came in with a Mendiola placed and as per was making urine, but was very dark. Since admission, he was given loading dose of Bumex and started on Bumex 2mg/hr drip. He was also given a dose of Diuril. UOP has improved. The patient is in respiratory distress and the patient's has opted against intubation as she feels that ultimately, the patient would not want this. Admitting SCr 1.97 that improved slightly to 1.85 at consult. Admitting K+ 5.6 that improved to 4.6 as consult Alb at 2.8. Interval History Pt was transferred to [facility]. If very confused today. Off BiPAP. in room. (Karin Juarez) Review of Systems General General Remarks Unable to obtain (Karin Juarez) Objective Data Data 06/21/16 06/22/16 19:00 07:00 Intake Total 342 ml 40 ml Output Total 4500 ml 3450 ml Balance -4158 ml -3410 ml Intake Oral 150 ml 0 ml IV Total 192 ml 40 ml Output Urine Total 4500 ml 3450 ml # Bowel Movements 0 0 Vital Signs Date Time Temp Pulse Resp B/P Pulse Ox O2 Delivery O2 Flow Rate FiO2 06/22/16 09:12 98 Nasal Cannula 3.00 06/22/16 05:00 100 35 06/22/16 04:00 98.4 60 28 109/43 96 06/22/16 04:00 60 06/22/16 04:00 95 Nasal Cannula 3.00 06/22/16 00:45 100 35 06/22/16 00:00 100 Bi-Pap 06/22/16 00:00 98.4 60 21 133/53 100 06/22/16 00:00 60 06/21/16 23:35 18 06/21/16 23:00 98 Bi-Pap 06/21/16 23:00 98.7 63 18 119/60 98 112/55 06/21/16 23:00 63 06/21/16 22:07 100 Nasal Cannula 4.00 06/21/16 22:07 100 40 06/21/16 21:20 98.4 60 18 129/64 99 129/50 06/21/16 19:21 Nasal Cannula 3.00 06/21/16 19:21 97.7 59 18 145/58 94 142/65 06/21/16 19:00 59 06/21/16 15:04 97 Nasal Cannula 3.00 06/21/16 15:03 59 06/21/16 15:02 98.0 59 18 140/53 97 06/21/16 11:16 97.8 59 17 145/51 95 06/21/16 11:14 59 06/21/16 11:13 95 Nasal Cannula 3.00 (Karin Juarez) -: 06/22/16 0350 06/22/16 0350 Imaging Last Impressions Chest X-Ray 06/20/16 0600 Signed Impressions: Service Date/Time: Monday, June 20, 2016 03:24 - CONCLUSION: Interval developmental of patchy consolidation left lower lung. Rustam Hernández MD Renal Ultrasound 06/19/16 0000 Signed Impressions: Service Date/Time: Sunday, June 19, 2016 17:15 - CONCLUSION: No evidence of obstructive uropathy, hydronephrosis. Increased echogenicity of the renal cortex suggesting parenchymal disease. Mendiola catheter in place in the urinary bladder Arsalan Juares MD Medication Review Current Medications Medications (Trade) Dose Ordered Sig/Les Route Start Time Stop Time Status Last Admin (NS Flush) 2 ml UNSCH PRN FLUSH 06/19/16 04:15 (NS Flush) 2 ml BID FLUSH 06/19/16 09:00 06/22/16 08:09 (Zofran Inj) 4 mg Q6H PRN IVP 06/19/16 04:15 (Tylenol) 650 mg Q6H PRN PO 06/19/16 04:15 Hold ([place] 5-325 Mg) 1 tab Q4H PRN PO 06/19/16 04:15 Hold (Zyloprim) 100 mg BID PO 06/19/16 09:00 Hold (Aspirin Chew) 81 mg DAILY CHEW 06/19/16 09:00 06/21/16 09:00 (Lipitor) 10 mg HS PO 06/19/16 21:00 (Coreg) 6.25 mg BID PO 06/19/16 09:00 Hold (Ferrous Sulfate) 325 mg DAILY PO 06/19/16 09:00 Hold (Breo Ellipta 100-25 Inh) 1 puff DAILY INH 06/19/16 09:00 (Apresoline) 10 mg BID PO 06/19/16 09:00 Hold (Aldactone) 25 mg DAILY PO 06/19/16 09:00 Hold (Flomax) 0.4 mg HS PO 06/19/16 21:00 (D50w (Vial) Inj) 25 ml UNSCH PRN IV PUSH 06/19/16 05:15 06/19/16 11:00 Glucagon 1 mg 1 mg UNSCH PRN OTHER 06/19/16 05:15 (Bumex Inj) 100 ml @ 4 mls/hr CONTINUOUS IV 06/19/16 13:00 06/22/16 02:06 (Protonix Inj) 40 mg DAILY IV 06/20/16 09:00 06/22/16 08:06 Miscellaneous Information 1 Q361D XX 06/19/16 11:45 06/19/16 11:45 (Chlorhexidine 2% Cloth) 3 pack Taper DAILY@04 TOP 06/20/16 04:00 06/16/17 03:59 06/21/16 04:00 (Chlorhexidine 2% Cloth) 3 pack UNSCH PRN TOP 06/19/16 11:45 (Diamox Inj) 500 mg Q8H IV PUSH 06/20/16 06:45 06/22/16 06:24 (Diuril Inj) 500 mg Q12HR IV 06/20/16 09:00 06/22/16 08:11 (Vitamin D3) 2,000 units DAILY PO 06/20/16 12:00 06/21/16 09:00 (Ativan Inj) 0.5 mg Q4H PRN IV PUSH 06/21/16 12:15 06/22/16 02:04 Morphine Sulfate 2 mg 2 mg Q3H PRN IV PUSH 06/21/16 12:15 06/22/16 10:42 Potassium Chloride 100 ml @ 50 mls/hr Q2H PRN IV 06/21/16 12:30 (KCl 20 Meq Premix Inj) 100 ml @ 50 mls/hr Q2H PRN IV 06/21/16 12:30 Potassium Chloride 40 meq 40 meq UNSCH PRN PO/TUBE 06/21/16 12:30 Potassium Chloride 100 ml @ 25 mls/hr UNSCH PRN IV 06/21/16 12:30 06/21/16 12:38 Potassium Chloride 100 ml @ 50 mls/hr Q2H PRN IV 06/21/16 12:30 (Magnesium Sulfate Inj/NS Inj) 100 ml @ 50 mls/hr UNSCH PRN IV 06/21/16 12:30 Magnesium Oxide 800 mg 800 mg UNSCH PRN PO 06/21/16 12:30 (Magnesium Sulfate Inj/NS Inj) 100 ml @ 50 mls/hr UNSCH PRN IV 06/21/16 12:30 Potassium Phosphate 2000 mg 2,000 mg Q4H PRN PO 06/21/16 12:30 (Sodium Phosphate Inj/NS 250 ml Inj) 250 ml @ 42 mls/hr UNSCH PRN IV 06/21/16 12:30 (KCl 40 Meq/30 ml Liq) 40 meq UNSCH PRN PO/TUBE 06/21/16 12:30 Potassium Phosphate 2000 mg 2,000 mg UNSCH PRN PO/TUBE 06/21/16 12:30 (Potassium Phosphate Inj/NS 250 ml Inj) 260 ml @ 42 mls/hr UNSCH PRN IV 06/21/16 12:30 Miscellaneous Information Patient in critical care unit? Ass... Q361D XX 06/21/16 21:30 06/21/16 21:30 (Chlorhexidine 2% Cloth) 3 pack DAILY@04 TOP 06/22/16 04:00 06/26/16 04:01 06/22/16 04:00 (Chlorhexidine 2% Cloth) 3 pack UNSCH PRN TOP 06/21/16 21:30 06/26/16 21:18 (Karin Juarez) Physical Exam General Appearance: Anxious Appearance Remarks Not opening eyes, but is restless in bed. Has single restraint on R arm. ( Karin Juarez) Neck Neck Exam: Neck Supple, Trachea Midline (Karin Juarez) Pulmonary Resp Exam: Clear Bilaterally, Breath Sounds Equal, Diminished Breath Sounds ( Karin Juarez) Cardiology CV Exam: Regular, Normal Sinus Rhythm (Karin Juarez) Integumentary Skin Exam: Warm (Karin Juarez) Extremeties Extremities Exam: Pitting Edema Extremeties Remarks Still has generalized anasarca, but has improved daily since admission (Karin Juarez) Neurologic Neuro Exam: Stuporous (Karin Juarez) Assessment/Plan Problem List: (1) Renal insufficiency Plan: The patient's baseline renal functions are not known. According to ' s recollection, his SCr has improved from what he was in [place]. Records are pending. He was supposed to have establishment visit with Dr. Burns as outpatient coming up this month. Acute renal decline likely related to cardiac decompensation. Renal functions have declined slightly. Likely related to diuresis. Bumex was decreased yesterday. To consider decrease of Diuril if agreeable by CC. Continue to monitor closely. Palliative care on case. Potentially to be made comfort care as per note. (2) CHF (congestive heart failure) Plan: EF of 45-50% Diurese as ordered (3) Diabetes mellitus Plan: Mgmt as per primary (4) Hypertension Plan: Stable. Monitor (5) CAD (coronary artery disease) Plan: Mgmt as per cardiology (Karin Juarez) Plan The patient has diuresed well but creatinine has deteriorated somewhat. Apparently the patient will be going to hospice today. indicated to me that his overall condition has been deteriorating even prior to this admission and cardiology is recommending hospice. We'll sign off at this time. (Evangelista Aguirre MD) Karin Juarez Jun 22, 2016 11:01 Evangelista Aguirre MD Jun 22, 2016 12:40
[2016-06-22] MEDS ORDERED: POTASSIUM CL 40 MEQ/30 ML LIQ UDC PO/TUBE ONE (11:15)
--- NOTE | 2016-06-22 12:43 | HHI.CCPN ---
Subjective Remarks/Hospital Course Hospital Course: This is a 75yM with a history of NYHA class III/IV heart failure, poorly controlled diabetes, obstructive sleep apnea who recently had an AICD placed at an outside facility. At that time, per his family, his "kidneys shut down" and he was hospitalized while they recovered. they reportedly started to recover and he was sent to a rehab center. His states that his kidney number was around 2.5 when he left at the end of may, presumably his serum creatinine. Since that time, his family states that despite diuretic therapy, he has gained 70 lbs. He has become so edematous that his arms and legs have seeping open sores. He has had a significant functional decline, and over the last few days has been progressively somnolent. Today he is brought in for for altered mental status. He was admitted initially to the hospitalist team with a CHF exacerbation, and placed on BiPAP for hypercarbic respiratory failure, and when it did not improve, Critical Care medicine was consulted. I had a long discussion with the family. Per them, his heart is restricted in its function, and maybe 30% (EF?). His diabetes was poorly controlled, and he was no longer wearing his CPAP machine for ROSE MARIE. He could barely walk 50 ft without significant dyspnea, and he was starting to have difficulty talking on the phone without getting dyspneic. Today, his laboratory data is significant for a Cr 1.9, a BNP of 124, trop 0.03 , AST/ALT 48/23, Alk phos 174, INR 3.1 on coumadin. Subjective: 06/20: net -5L overnight. patient more awake. getting significantly alkalotic, though I think we have to press on with aggressive diuresis despite worsening contraction alkalosis. I again discussed with the family the likely poor prognosis, and again we have mutual goals for being conservatively aggressive with an understanding that if we downtrend clinically, we will transition to comfort. 06/21: No acute issues overnight. The patient remained on BiPAP overnight maintaining an O2 saturation of 97%. The patient was diuresed -5 L in the last 24 hours, he continues on Bumex infusion at 2 mg an hour. Discussion with family this a.m. and plans for transition to comfort care measures. Awaiting palliative care meeting this a.m.. 06/22: The patient remained on BiPAP overnight, maintain O2 saturation 9798%. The patient's neurological status continues to be altered. Palliative medicine had a meeting with family, it was decided patient would be comfort care measures only. The patient is to be transferred to a hospice medical facility today. Objective Vital Signs Date Time Temp Pulse Resp B/P Pulse Ox O2 Delivery O2 Flow Rate FiO2 06/22/16 10:47 20 06/22/16 09:12 98 Nasal Cannula 3.00 06/22/16 08:00 60 06/22/16 08:00 97.6 136/73 141/56 06/22/16 05:00 35 Intake and Output 06/21/16 06/21/16 06/22/16 08:00 16:00 00:00 Intake Total 250 ml 358 ml Output Total 2685 ml 5950 ml Balance -2435 ml -5592 ml Result Diagram: 06/22/16 0350 06/22/16 0350 Other Results Microbiology Date/Time Procedure Status Source Growth 06/19/16 20:51 Urine Culture - Final Complete Urine Clean Catch NO GROWTH IN 48 HOURS. Objective Remarks Gen: Super morbidly obese male, lying in bed, awake, not responding to questions appropriately. HEENT: PERRLA. mucous membranes moist. NECK: trachea midline. BiPAP mask in place. No JVD. CHEST: diminished bilaterally. equal air entry. no wheezes CV: normal rate, regular rhythm, SR. muffled heart sounds. no appreciable murmurs ABD: obese, soft, nontender, nondistended. no guarding. MSK: Edematous 4. small areas of bullae with clear fluid seeping. distal pulses 1+. NEURO: RASS 0, follows commands in all 4 extremities. Procedures None Urinary Catheter: Yes Mendiola insert reason: ICU Pt Getting Diuretics A/P Assessment and Plan Assessment: This is a 75yM with history of cardiomyopathy, unknown type, and NYHA class III/IV symptoms who presents with 70 lb weight gain over 1-2 weeks and extreme volume overload and cor pulmonale. He remains critically ill, and if we do not successfully continue aggressive diuresis, he will . In addition, we persist with respiratory failure requiring high NIPPV support. Plan by systems: Neurologic: Metabolic encephalopathy Likely secondary to hepatic dysfunction Every hour neurochecks Avoid sedating medications Respiratory: Acute hypercarbic respiratory failure Acute respiratory failure exacerbation, unknown type. Suspected mixed systolic and diastolic. Asthma Continue BiPAP 10/5, FIO2 .40% The patient is DNI. We will not pursue intubation Wean FiO2 for goal SPO2 greater than 90% -Bronchodilators PRN Cardiovascular: Acute Congestive heart failure exacerbation, unknown type Biventricular failure H/O atrial fibrillation Continue telemetry -Cardiology on [id number] recommendations Renal: Acute kidney injury Continue Mendiola catheter -- Strict I/Os FEN/GI: Severe acute intravascular volume overload Congestive hepatopathy Severe metabolic alkalosis DiscontinuedBumex drip at 2 mg an hour Diuril 500 mg IV q12h --Diamox 500mg IV q8h serial K by IL-GEM ABG as we are diuresing. Nothing by mouth while on BiPAP AM BMP-contraction alkalosis secondary to diuresis We will hold all of his by mouth meds in the setting of his significant altered mental status Heme/ID: Supratherapeutic INR Coagulopathy Likely secondary to renal dysfunction and hepatic dysfunction Daily CBC Daily coags holding Coumadin, will restart if INR is less than 1.7 Endocrine: Hyperglycemia of critical illness Diabetes -- SSI, medium scale, every 6 hours Prophylaxis: GI Prophylaxis Protonix 40 mg IV daily 24 hours DVT Prophylaxis -- SCDs Supratherapeutic INR. Holding pharmacologic DVT prophylaxis. Lines: Peripheral IVs --will place arterial line for frequent blood gas analysis. Dispo: The family has decided comfort care measures, the patient will be transferred to a hospice facility today. Level 3 Physician Josie Rosas MD Jun 22, 2016 12:43
--- NOTE | 2016-06-22 12:51 | HHI.DS ---
Discharge Summary Admission Date Jun 19, 2016 at 03:53 Discharge Date: Jun 22, 2016 Admitting Diagnosis Uremia, Anasarca, Renal Insufficiency (1) CHF (congestive heart failure) ICD Code: I50.9 (2) Hyperkalemia ICD Code: E87.5 (3) Renal insufficiency ICD Code: N28.9 (4) A-fib ICD Code: I48.91 (5) AICD (automatic cardioverter/defibrillator) present ICD Code: Z95.810 Procedures None Brief History This is a 75 year old male with a PMH of HTN, CAD, CHF (unknown EF), Renal Insufficiency, A-fib on Coumadin and DM who was brought to the ER by EMS from [facility] for worsening edema. History provided by . Per , pt was recently admitted to [facility] and underwent AICD placement, following procedure pt developed renal insufficiency w/ creatinine 3.9. States seen by Chemical Analyst at [place] and renal function improved w/ creatinine 2.6 at time of d/c to Rehab. While in Rehab, however, notes pt has gained approx 70 lbs w/ significant peripheral edema. No chest pain or SOB reported. On arrival, BP 116/53, HR 63, O2 sat 99% on RA, Afebrile. WBC 6.2. K+ 5.6. Creatinine 1.97, presumably chronic. BNP 124. Trop 0.03. CXR w/ cardiomegaly and indistinctness of the central bronchopulmonary markings. CBC/BMP: 06/22/16 0350 06/22/16 0350 Significant Findings Laboratory Tests Test 06/19/16 06/19/16 06/19/16 06/20/16 15:38 19:00 20:51 06:10 Blood Gas HCO3 35 mmol/L (22-26) Blood Gas Base Excess 9.6 mmol/L (-2-2) Arterial Blood pH 7.35 (7.380-7.420) Arterial Blood Partial 66 mmHg (38-42) Pressure CO2 Arterial Blood Partial 235 mmHG Pressure O2 (61-120) Blood Gas Hemoglobin 9.1 G/DL (12.0-16.0) Carbon Dioxide Level 37.5 MEQ/L 37.6 MEQ/L (21.0-32.0) (21.0-32.0) Blood Urea Nitrogen 70 MG/DL (7-18) 70 MG/DL (7-18) Creatinine 1.82 MG/DL 1.82 MG/DL (0.60-1.30) (0.60-1.30) Random Glucose 70 MG/DL (74-106) Magnesium Level 2.9 MG/DL (1.5-2.5) Ammonia 37 MCMOL/L (11-32) Parathyroid Hormone (Intact) 124.3 PG/ML (12.4-76.8) Estimat Glomerular Filtration 36 ML/MIN (>89) 36 ML/MIN (>89) Rate Albumin/Globulin Ratio 1.11 (1.39-2.23) Ryodw-7-Skvypgplk 0.32 GM/DL (0.11-0.29) 25-Hydroxy Vitamin D Total 26.7 ng/ML (30-100) Immunoglobulin A 651 MG/DL (103-568) Urine Turbidity HAZY (CLEAR) Urine Occult Blood MOD (NEG) Urine Leukocyte Esterase LARGE (NEG) Urine RBC 93 /hpf (0-3) Urine WBC 39 /hpf (0-5) Urine Bacteria RARE /hpf (NONE) Urine Random Creatinine LESS THAN 13 MG/DL (27-300) Red Blood Count 3.05 MIL/MM3 (4.50-5.90) Hemoglobin 8.9 GM/DL (13.0-17.0) Hematocrit 28.3 % (39.0-51.0) Mean Corpuscular Hemoglobin 31.6 % Concent (32.0-36.0) Red Cell Distribution Width 18.1 % (11.6-17.2) Prothrombin Time 33.1 SEC (9.8-11.6) Chloride Level 97 MEQ/L (98-107) Direct Bilirubin 0.4 MG/DL (0.0-0.2) Alkaline Phosphatase 162 U/L (45-117) Albumin 2.8 GM/DL (3.4-5.0) Test 06/20/16 06/20/16 06/21/16 06/21/16 06:45 07:27 04:50 10:58 Blood Gas HCO3 37 mmol/L (22-26) Blood Gas Base Excess 11.2 mmol/L (-2-2) Arterial Blood pH 7.36 (7.380-7.420) Arterial Blood Partial 67 mmHg (38-42) Pressure CO2 Arterial Blood Partial 130 mmHg Pressure O2 (61-120) Blood Gas Hemoglobin 9.7 G/DL (12.0-16.0) Red Blood Count 3.07 MIL/MM3 3.09 MIL/MM3 (4.50-5.90) (4.50-5.90) Hemoglobin 8.9 GM/DL 9.2 GM/DL (13.0-17.0) (13.0-17.0) Hematocrit 28.2 % 28.5 % (39.0-51.0) (39.0-51.0) Mean Corpuscular Hemoglobin 31.4 % Concent (32.0-36.0) Red Cell Distribution Width 18.0 % 17.8 % (11.6-17.2) (11.6-17.2) Neutrophils (%) (Auto) 76.6 % (16.0-70.0) Monocytes (%) (Auto) 10.3 % (0.0-8.0) Lymphocytes # (Auto) 0.7 TH/MM3 (1.0-4.8) Chloride Level 96 MEQ/L 93 MEQ/L (98-107) (98-107) Carbon Dioxide Level 40.2 MEQ/L 39.8 MEQ/L (21.0-32.0) (21.0-32.0) Blood Urea Nitrogen 69 MG/DL (7-18) 76 MG/DL (7-18) Creatinine 1.79 MG/DL 1.96 MG/DL (0.60-1.30) (0.60-1.30) Estimat Glomerular Filtration 37 ML/MIN (>89) 33 ML/MIN (>89) Rate Potassium Level 3.4 MEQ/L (3.5-5.1) Random Glucose 168 MG/DL (74-106) Phosphorus Level 5.1 MG/DL (2.5-4.9) Direct Bilirubin 0.5 MG/DL (0.0-0.2) Alkaline Phosphatase 157 U/L (45-117) Albumin 3.0 GM/DL (3.4-5.0) Prothrombin Time 43.8 SEC (9.8-11.6) Ammonia 46 MCMOL/L (11-32) Test 06/22/16 03:50 Red Blood Count 3.12 MIL/MM3 (4.50-5.90) Hemoglobin 9.0 GM/DL (13.0-17.0) Hematocrit 28.6 % (39.0-51.0) Mean Corpuscular Hemoglobin 31.6 % Concent (32.0-36.0) Red Cell Distribution Width 17.9 % (11.6-17.2) Prothrombin Time 45.8 SEC (9.8-11.6) Potassium Level 2.8 MEQ/L (3.5-5.1) Chloride Level 92 MEQ/L (98-107) Carbon Dioxide Level 44.5 MEQ/L (21.0-32.0) Blood Urea Nitrogen 78 MG/DL (7-18) Creatinine 2.10 MG/DL (0.60-1.30) Estimat Glomerular Filtration 31 ML/MIN (>89) Rate Random Glucose 139 MG/DL (74-106) Total Bilirubin 1.1 MG/DL (0.2-1.0) Direct Bilirubin 0.4 MG/DL (0.0-0.2) Alkaline Phosphatase 149 U/L (45-117) Albumin 3.0 GM/DL (3.4-5.0) PE at Discharge GENERAL: Elderly, morbidly obese white male on BiPAP HEENT: PERRLA, EOMI. No scleral icterus or conjunctival pallor. No lid lag or facial droop. CARDIOVASCULAR: Regular rate and rhythm. No obvious murmurs to auscultation. No chest tenderness to palpation. RESPIRATORY: No obvious rhonchi or wheezing. Clear to auscultation. Breath sounds equal bilaterally, decreased at bases bilaterally. GASTROINTESTINAL: Abdomen soft, non-tender, nondistended. BS normal. MUSCULOSKELETAL: Extremities without clubbing, cyanosis. +2 pitting edema. No obvious deformities. NEUROLOGICAL: Obtunded. Withdraws bilateral upper extremities from pain Hospital Course Hospital Course: This is a 75yM with a history of NYHA class III/IV heart failure, poorly controlled diabetes, obstructive sleep apnea who recently had an AICD placed at an outside facility. At that time, per his family, his "kidneys shut down" and he was hospitalized while they recovered. they reportedly started to recover and he was sent to a rehab center. His states that his kidney number was around 2.5 when he left at the end of may, presumably his serum creatinine. Since that time, his family states that despite diuretic therapy, he has gained 70 lbs. He has become so edematous that his arms and legs have seeping open sores. He has had a significant functional decline, and over the last few days has been progressively somnolent. Today he is brought in for for altered mental status. He was admitted initially to the hospitalist team with a CHF exacerbation, and placed on BiPAP for hypercarbic respiratory failure, and when it did not improve, Critical Care medicine was consulted. I had a long discussion with the family. Per them, his heart is restricted in its function, and maybe 30% (EF?). His diabetes was poorly controlled, and he was no longer wearing his CPAP machine for ROSE MARIE. He could barely walk 50 ft without significant dyspnea, and he was starting to have difficulty talking on the phone without getting dyspneic. Today, his laboratory data is significant for a Cr 1.9, a BNP of 124, trop 0.03 , AST/ALT 48/23, Alk phos 174, INR 3.1 on coumadin. Subjective: 06/20: net -5L overnight. patient more awake. getting significantly alkalotic, though I think we have to press on with aggressive diuresis despite worsening contraction alkalosis. I again discussed with the family the likely poor prognosis, and again we have mutual goals for being conservatively aggressive with an understanding that if we downtrend clinically, we will transition to comfort. 06/21: No acute issues overnight. The patient remained on BiPAP overnight maintaining an O2 saturation of 97%. The patient was diuresed -5 L in the last 24 hours, he continues on Bumex infusion at 2 mg an hour. Discussion with family this a.m. and plans for transition to comfort care measures. Awaiting palliative care meeting this a.m.. 06/22: The patient remained on BiPAP overnight, maintain O2 saturation [id number]%. The patient's neurological status continues to be altered. Palliative medicine had a meeting with family, it was decided patient would be comfort care measures only. The patient is to be transferred to a hospice medical facility today. Pt Condition on Discharge: Deteriorating Discharge Disposition: Hospice/Med Facility Discharge Instructions DIET: Follow Instructions for: Nothing By Mouth Activities you can perform: Continue Bedrest Josie Pena MD Jun 22, 2016 12:51
--- NOTE | 2016-06-22 16:10 | HHI.HCPN ---
Reason for visit a. To assist with evaluation and management of symptoms including: Dyspnea , anxiety b. To assist medical decision maker(s) with: better understanding of current medical conditions; weighing benefits/burdens of medical treatment options; making medical treatment decisions. . Subjective/Interval History INTERVAL NOTE: The staff has tried eating the BiPAP off intermittently, but the patient becomes more dyspneic and fails each time. During the night and this morning, he did receive a couple doses of morphine and some lorazepam for symptoms of dyspnea and anxiety, and the medicines did seem to help. At the time I am seeing the patient, he is quite lethargic, opening eyes but not responding to questions. Patient's is at the bedside, see discussion below. . Family/friend interactions Discussion with at the bedside. She is aware that the engineer technician recommended hospice transition earlier today. She has determined that she wants to focus to change now to comfort, and would like the patient in the [facility] for hospice services and end-of-life care. Advance Directives Living Will: Never completed Health Care Surrogate: Copy in medical record Durable Power of Manager Community Development: Never completed Advance Directive Specifics Health Care Surrogate(s): The unsigned HCS form names is primary and son Glen has secondary . Objective Vital Signs Date Time Temp Pulse Resp B/P Pulse Ox O2 Delivery O2 Flow Rate FiO2 06/22/16 12:00 98.0 60 20 146/78 98 141/56 06/22/16 12:00 95 Nasal Cannula 3.00 06/22/16 12:00 60 06/22/16 10:47 20 06/22/16 09:12 98 Nasal Cannula 3.00 06/22/16 08:00 60 06/22/16 08:00 95 Nasal Cannula 3.00 06/22/16 08:00 97.6 96 16 136/73 96 141/56 06/22/16 05:00 100 35 06/22/16 04:00 98.4 60 28 109/43 96 06/22/16 04:00 60 06/22/16 04:00 95 Nasal Cannula 3.00 06/22/16 00:45 100 35 06/22/16 00:00 100 Bi-Pap 06/22/16 00:00 98.4 60 21 133/53 100 06/22/16 00:00 60 06/21/16 23:00 98 Bi-Pap 06/21/16 23:00 98.7 63 18 119/60 98 112/55 06/21/16 23:00 63 06/21/16 22:07 100 Nasal Cannula 4.00 06/21/16 22:07 100 40 06/21/16 21:20 98.4 60 18 129/64 99 129/50 06/21/16 19:21 Nasal Cannula 3.00 06/21/16 19:21 97.7 59 18 145/58 94 142/65 06/21/16 19:00 59 Intake & Output 06/22/16 06/22/16 07:00 19:00 Intake Total 40 ml 80 ml Output Total 3450 ml 2700 ml Balance -3410 ml -2620 ml Intake Oral 0 ml IV Total 40 ml 80 ml Output Urine Total 3450 ml 2700 ml # Bowel Movements 0 Physical Exam CONSTITUTIONAL/GENERAL: This is an edematous and obese patient, in no apparent distress. BiPAP is in place initially. TUBES/LINES/DRAINS: BiPAP, central venous access, Mendiola catheter, SCDs NECK: Trachea midline. Supple, nontender. No palpable thyroid enlargement or nodularity. CARDIOVASCULAR: Irregularly irregular rhythm without murmurs, gallops, or rubs. No JVD. Peripheral pulses symmetric. RESPIRATORY/CHEST: Symmetric, unlabored respirations. Markedly diminished breath sounds bilateral, a few rhonchi noted GASTROINTESTINAL: Abdomen soft, non-tender, but moderately distended. No hepato- splenomegaly, or palpable masses. No guarding. Bowel sounds present. GENITOURINARY: Without palpable bladder distension. Mendiola catheter in place. MUSCULOSKELETAL: Extremities without clubbing, cyanosis, but 2+ edema is present in the arms and legs. No joint tenderness or effusion noted. No calf tenderness. No mottling or clubbing. NEUROLOGICAL: Quite lethargic, nonverbal, does not follow commands.. PSYCHIATRIC: No obvious anxiety/depression. no apparent hallucinations or other psychotic thought process. . Diagnostic Tests Laboratory Laboratory Tests Test 06/19/16 06/19/16 06/20/16 06/20/16 19:00 20:51 06:10 06:45 Sodium Level 142 MEQ/L 142 MEQ/L (136-145) (136-145) Potassium Level 4.8 MEQ/L 4.1 MEQ/L (3.5-5.1) (3.5-5.1) Chloride Level 99 MEQ/L 97 MEQ/L (98-107) (98-107) Carbon Dioxide Level 37.5 MEQ/L 37.6 MEQ/L (21.0-32.0) (21.0-32.0) Blood Urea Nitrogen 70 MG/DL (7-18) 70 MG/DL (7-18) Creatinine 1.82 MG/DL 1.82 MG/DL (0.60-1.30) (0.60-1.30) Random Glucose 70 MG/DL 81 MG/DL (74-106) (74-106) Calcium Level 8.5 MG/DL 8.7 MG/DL (8.5-10.1) (8.5-10.1) Magnesium Level 2.9 MG/DL (1.5-2.5) Ammonia 37 MCMOL/L (11-32) Parathyroid Hormone (Intact) 124.3 PG/ML (12.4-76.8) Anion Gap 6 MEQ/L (5-15) 7 MEQ/L (5-15) Estimat Glomerular Filtration 36 ML/MIN (>89) 36 ML/MIN (>89) Rate Total Protein 6.7 GM/DL 6.5 GM/DL (6.0-7.6) (6.4-8.2) Albumin 3.52 GM/DL 2.8 GM/DL (3.50-5.00) (3.4-5.0) Albumin/Globulin Ratio 1.11 (1.39-2.23) Otyir-7-Kciuvsvzw 0.32 GM/DL (0.11-0.29) Otayw-1-Phvadxgxb 0.80 GM/DL (0.22-1.00) Beta Globulins 0.76 GM/DL (0.53-1.03) Gamma Globulins 1.30 GM/DL (0.50-1.39) Electrophoresis Pathologist Comment 25-Hydroxy Vitamin D Total 26.7 ng/ML (30-100) Immunoglobulin G Total 890 MG/DL (680-1670) Immunoglobulin A 651 MG/DL (103-568) Immunoglobulin [place]/Lambda 2.17 Ratio (1.57-3.93) Immunofixation Interpretation [place] Light Chain Analysis 351 MG/DL (170-370) Lambda Light Chain Analysis 162 MG/DL (90-210) Urine Color LIGHT-YELLOW (YELLW/STRAW) Urine Turbidity HAZY (CLEAR) Urine pH 7.5 (5.0-8.5) Urine Specific [place] 1.006 (1.002-1.035) Urine Protein NEG mg/dL (NEG-TRACE) Urine Glucose (UA) NEG mg/dL (NEG) Urine Ketones NEG mg/dL (NEG) Urine Occult Blood MOD (NEG) Urine Nitrite NEG (NEG) Urine Bilirubin NEG (NEG) Urine Urobilinogen LESS THAN 2.0 MG/DL (LESS THAN 2.0) Urine Leukocyte Esterase LARGE (NEG) Urine RBC 93 /hpf (0-3) Urine WBC 39 /hpf (0-5) Urine Bacteria RARE /hpf (NONE) Urine Hyaline Casts 1 /lpf (RARE) Microscopic Urinalysis Comment CULTURE INDICATED Urine Random Creatinine LESS THAN 13 MG/DL (27-300) Urine Random Total Protein 7 MG/DL (0-11.8) Urine Protein/Creatinine Ratio 0.00 (0.00-0.14) White Blood Count 6.4 TH/MM3 (4.0-11.0) Red Blood Count 3.05 MIL/MM3 (4.50-5.90) Hemoglobin 8.9 GM/DL (13.0-17.0) Hematocrit 28.3 % (39.0-51.0) Mean Corpuscular Volume 92.8 FL (80.0-100.0) Mean Corpuscular Hemoglobin 29.3 PG (27.0-34.0) Mean Corpuscular Hemoglobin 31.6 % Concent (32.0-36.0) Red Cell Distribution Width 18.1 % (11.6-17.2) Platelet Count 153 TH/MM3 (150-450) Mean Platelet Volume 8.5 FL (7.0-11.0) Prothrombin Time 33.1 SEC (9.8-11.6) Prothromb Time International 2.9 RATIO Ratio Total Bilirubin 1.0 MG/DL (0.2-1.0) Direct Bilirubin 0.4 MG/DL (0.0-0.2) Indirect Bilirubin 0.6 MG/DL (0.0-0.8) Aspartate Amino Transf 20 U/L (15-37) (AST/SGOT) Alanine Aminotransferase 20 U/L (12-78) (ALT/SGPT) Alkaline Phosphatase 162 U/L (45-117) Blood Gas Puncture Site RT RADIAL Blood Gas Patient Temperature 98.6 Blood Gas HCO3 37 mmol/L (22-26) Blood Gas Base Excess 11.2 mmol/L (-2-2) Blood Gas Oxygen Saturation 96 % (90-100) Arterial Blood pH 7.36 (7.380-7.420) Arterial Blood Partial 67 mmHg (38-42) Pressure CO2 Arterial Blood Partial 130 mmHg Pressure O2 (61-120) Arterial Blood Oxygen Content 13.3 Vol % (12.0-20.0) Arterial Blood 2.4 % (0-4) Carboxyhemoglobin Arterial Blood Methemoglobin 0.9 % (0-2) Blood Gas Hemoglobin 9.7 G/DL (12.0-16.0) Oxygen Delivery Device VENTILATOR Blood Gas Ventilator Setting NPPV/SIMV Blood Gas Inspired Oxygen 45 % Test 06/20/16 06/21/16 06/21/16 06/21/16 07:27 04:50 10:58 21:45 White Blood Count 6.4 TH/MM3 6.2 TH/MM3 (4.0-11.0) (4.0-11.0) Red Blood Count 3.07 MIL/MM3 3.09 MIL/MM3 (4.50-5.90) (4.50-5.90) Hemoglobin 8.9 GM/DL 9.2 GM/DL (13.0-17.0) (13.0-17.0) Hematocrit 28.2 % 28.5 % (39.0-51.0) (39.0-51.0) Mean Corpuscular Volume 91.7 FL 92.2 FL (80.0-100.0) (80.0-100.0) Mean Corpuscular Hemoglobin 28.8 PG 29.9 PG (27.0-34.0) (27.0-34.0) Mean Corpuscular Hemoglobin 31.4 % 32.4 % Concent (32.0-36.0) (32.0-36.0) Red Cell Distribution Width 18.0 % 17.8 % (11.6-17.2) (11.6-17.2) Platelet Count 157 TH/MM3 158 TH/MM3 (150-450) (150-450) Mean Platelet Volume 8.4 FL 7.5 FL (7.0-11.0) (7.0-11.0) Neutrophils (%) (Auto) 76.6 % (16.0-70.0) Lymphocytes (%) (Auto) 11.4 % (9.0-44.0) Monocytes (%) (Auto) 10.3 % (0.0-8.0) Eosinophils (%) (Auto) 0.8 % (0.0-4.0) Basophils (%) (Auto) 0.9 % (0.0-2.0) Neutrophils # (Auto) 4.9 TH/MM3 (1.8-7.7) Lymphocytes # (Auto) 0.7 TH/MM3 (1.0-4.8) Monocytes # (Auto) 0.7 TH/MM3 (0-0.9) Eosinophils # (Auto) 0.1 TH/MM3 (0-0.4) Basophils # (Auto) 0.1 TH/MM3 (0-0.2) CBC Comment DIFF FINAL Differential Comment Sodium Level 143 MEQ/L 143 MEQ/L (136-145) (136-145) Potassium Level 3.9 MEQ/L 3.4 MEQ/L (3.5-5.1) (3.5-5.1) Chloride Level 96 MEQ/L 93 MEQ/L (98-107) (98-107) Carbon Dioxide Level 40.2 MEQ/L 39.8 MEQ/L (21.0-32.0) (21.0-32.0) Anion Gap 7 MEQ/L (5-15) 10 MEQ/L (5-15) Blood Urea Nitrogen 69 MG/DL (7-18) 76 MG/DL (7-18) Creatinine 1.79 MG/DL 1.96 MG/DL (0.60-1.30) (0.60-1.30) Estimat Glomerular Filtration 37 ML/MIN (>89) 33 ML/MIN (>89) Rate Random Glucose 104 MG/DL 168 MG/DL (74-106) (74-106) Calcium Level 8.7 MG/DL 8.8 MG/DL (8.5-10.1) (8.5-10.1) Phosphorus Level 5.1 MG/DL (2.5-4.9) Total Bilirubin 1.0 MG/DL (0.2-1.0) Direct Bilirubin 0.5 MG/DL (0.0-0.2) Indirect Bilirubin 0.5 MG/DL (0.0-0.8) Aspartate Amino Transf 16 U/L (15-37) (AST/SGOT) Alanine Aminotransferase 19 U/L (12-78) (ALT/SGPT) Alkaline Phosphatase 157 U/L (45-117) Total Protein 6.8 GM/DL (6.4-8.2) Albumin 3.0 GM/DL (3.4-5.0) Prothrombin Time 43.8 SEC (9.8-11.6) Prothromb Time International 3.7 RATIO Ratio Ammonia 46 MCMOL/L (11-32) Nasal Screen MRSA (PCR) NEGATIVE (NEGATIVE) Test 06/22/16 03:50 White Blood Count 6.2 TH/MM3 (4.0-11.0) Red Blood Count 3.12 MIL/MM3 (4.50-5.90) Hemoglobin 9.0 GM/DL (13.0-17.0) Hematocrit 28.6 % (39.0-51.0) Mean Corpuscular Volume 91.4 FL (80.0-100.0) Mean Corpuscular Hemoglobin 28.9 PG (27.0-34.0) Mean Corpuscular Hemoglobin 31.6 % Concent (32.0-36.0) Red Cell Distribution Width 17.9 % (11.6-17.2) Platelet Count 153 TH/MM3 (150-450) Mean Platelet Volume 8.1 FL (7.0-11.0) Prothrombin Time 45.8 SEC (9.8-11.6) Prothromb Time International 3.9 RATIO Ratio Sodium Level 143 MEQ/L (136-145) Potassium Level 2.8 MEQ/L (3.5-5.1) Chloride Level 92 MEQ/L (98-107) Carbon Dioxide Level 44.5 MEQ/L (21.0-32.0) Anion Gap 7 MEQ/L (5-15) Blood Urea Nitrogen 78 MG/DL (7-18) Creatinine 2.10 MG/DL (0.60-1.30) Estimat Glomerular Filtration 31 ML/MIN (>89) Rate Random Glucose 139 MG/DL (74-106) Calcium Level 9.3 MG/DL (8.5-10.1) Magnesium Level 2.4 MG/DL (1.5-2.5) Total Bilirubin 1.1 MG/DL (0.2-1.0) Direct Bilirubin 0.4 MG/DL (0.0-0.2) Indirect Bilirubin 0.7 MG/DL (0.0-0.8) Aspartate Amino Transf 15 U/L (15-37) (AST/SGOT) Alanine Aminotransferase 17 U/L (12-78) (ALT/SGPT) Alkaline Phosphatase 149 U/L (45-117) Total Protein 6.8 GM/DL (6.4-8.2) Albumin 3.0 GM/DL (3.4-5.0) Result Diagram: 06/22/16 0350 06/22/16 0350 Microbiology Microbiology Date/Time Procedure Status Source Growth 06/19/16 20:51 Urine Culture - Final Complete Urine Clean Catch NO GROWTH IN 48 HOURS. Imaging Last Impressions Chest X-Ray 06/20/16 0600 Signed Impressions: Service Date/Time: Monday, June 20, 2016 03:24 - CONCLUSION: Interval developmental of patchy consolidation left lower lung. Rustam Hernández MD Renal Ultrasound 06/19/16 0000 Signed Impressions: Service Date/Time: Sunday, June 19, 2016 17:15 - CONCLUSION: No evidence of obstructive uropathy, hydronephrosis. Increased echogenicity of the renal cortex suggesting parenchymal disease. Mendiola catheter in place in the urinary bladder Arsalan Juares MD Procedures BiPAP . Assessment and Plan Disease Oriented Problem List: (1) heart failure, right-sided more than left sided (2) acute kidney injury, chronic kidney disease (3) encephalopathy, likely related to multiple factors (4) CAD, history of CABG (5) GI bleeding, history of ulcer disease November 2015 (6) AICD, replaced 05/18/16 (7) chronic anemia (8) chronic atrial fibrillation (9) hypertension (10) diabetes, reportedly poorly controlled (11) history of obstructive sleep apnea Symptom Scale: (1) dyspnea 0-10 Scale: 5 (2) anxiety 0-10 Scale: 3 (intermittent, associated with dyspnea) Pertinent Non-Medical Issues Psychosocial: , retired, 3 children. Spiritual: The patient's reports that spirituality has been very important to the patient the past few years. They were members of the [employer] in [place], and he was an active participant there. Their hand chain maker from that [employer] drove here to see the patient yesterday. They would like bleacher lard visits. Legal: The patient has had confusion in recent weeks and days, and likely does not have capacity for decision-making at this time. He is and has 3 children. By [place] statutes, the patient's would be the primary decision maker. Coincidentally, he completed a health care proxy form naming his as primary decision maker and his son Glen as secondary, but he did not sign that form. A copy is placed in the chart. Ethical issues impacting care: None . Important Contacts : Gris [phone] Daughter: Tamika Hay [phone] . Prognosis The patient's overall prognosis is very poor, as he has end-stage heart disease/ failure and involvement of multiple organ systems. Is likely outlook is weeks or perhaps months, and certainly he is appropriate for hospice services when the goals transition to comfort only. . Code Status: No Code Plan * DO NOT RESUSCITATE * DECISION-MAKING: The patient lacks capacity for decision-making, and it appears that he will not regain that capacity now; the patient's would be the primary decision maker. Coincidentally, he completed a health care proxy form naming his as primary decision maker and his son Glen as secondary, but he did not sign that form. A copy is in the chart. * SYMPTOMS: Morphine and lorazepam orders are in place, and her useful for his dyspnea and/or anxiety. * GOALS: The patient's wants to transition to hospice care today, requesting transfer [facility]. * Palliative Care will continue to follow the patient during this hospitalization. . Time Spent Total Floor Time (mins): 39 Face to Face Time (mins): 23 >50% Counseling/Coord of Care: Yes Attestation To help prompt me to consider important information that might be impacting today's encounter and assessment, information from prior notes written by myself or my colleagues may have been "brought forward" into today's note. My signature on this note, however, is an attestation that I personally performed the exam, history, and/or decision-making noted today, and, unless otherwise indicated, the interactions with patient, family, and staff as well as the review of records all occurred today. I also attest that the listed assessment and stated plan reflect my best clinical judgment today based on the combination of historical information, prior notes, and today's exam/ interactions. When time spent is documented, it refers only to time spent today by the signer, or if indicated, combined time spent today by collaborating physician/nurse practitioner. Suly Roy MD Jun 22, 2016 16:10
[2016-06-25 03:52] LABS: KAPPA/LAMBDA FREE 2.77 (0.26-1.65)
== END 2016-06-22 15:00 | disposition hospice, inpatient (51) | DRG 252 ==
LOC: NEPC 21:59 → NEDA 06-19 03:53 → NEDH 06-19 08:44 → HCVR 06-19 19:00 → HIME 06-21 20:56
PROVIDERS: ADMIT Internal Medicine Critical Care Medicine; ATTEND Internal Medicine Critical Care Medicine
PROC: 5A09457 Assistance with Respiratory Ventilation, 24-96 Consecutive Hours, Continuous Positive Airway Pressure (ICD-10-PCS; 2016-06-19)
PROC: 03HB3DZ Insertion of Intraluminal Device into Right Radial Artery, Percutaneous Approach (ICD-10-PCS; principal; 2016-06-20)
DX: I13.0 Hypertensive heart and chronic kidney disease with heart failure and stage 1 through stage 4 chronic kidney disease, or unspecified chronic kidney disease (principal); I50.23 Acute on chronic systolic (congestive) heart failure; J96.02 Acute respiratory failure with hypercapnia; N17.9 Acute kidney failure, unspecified; G93.41 Metabolic encephalopathy; E66.01 Morbid (severe) obesity due to excess calories; E11.22 Type 2 diabetes mellitus with diabetic chronic kidney disease; I42.9 Cardiomyopathy, unspecified; E11.65 Type 2 diabetes mellitus with hyperglycemia; I25.810 Atherosclerosis of coronary artery bypass graft(s) without angina pectoris; I27.81 Cor pulmonale (chronic); E87.5 Hyperkalemia; I48.2 Chronic atrial fibrillation; Z95.810 Presence of automatic (implantable) cardiac defibrillator; Z79.01 Long term (current) use of anticoagulants; K76.89 Other specified diseases of liver; E78.5 Hyperlipidemia, unspecified; K76.1 Chronic passive congestion of liver; N18.9 Chronic kidney disease, unspecified; G47.33 Obstructive sleep apnea (adult) (pediatric); J45.909 Unspecified asthma, uncomplicated; Z95.1 Presence of aortocoronary bypass graft; Z68.37 Body mass index [BMI] 37.0-37.9, adult; T50.2X5A Adverse effect of carbonic-anhydrase inhibitors, benzothiadiazides and other diuretics, initial encounter; Z51.5 Encounter for palliative care; Z66 Do not resuscitate; Z79.4 Long term (current) use of insulin
CPT/HCPCS: 36556; 36600; 71010; 76775; 76937; 80048; 80076; 81001; 82140; 82306; 82550; 82570; 82784; 82805; 82948; 83735; 83880; 83883; 83970; 84100; 84156; 84165; 84484; 85014; 85025; 85027; 85610; 85730; 86334; 87086; 87641; 93005; 93306; 94002; 94003; 94640; 94664; C9113; J0610; J1120; J1205; J1815; J2060; J2270; J3480